=== PATIENT | male | born 1965 | race African-American/Black ===

== ENCOUNTER 2024-03-28 13:30 | Outpatient (AMB) | payer OTHER, SELFPAY ==
--- NOTE | 2024-03-28 13:23 | HO.NEPHOV ---
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 Frias is a 58-year-old gentleman with history hypertension, right basal ganglia CVA, obstructive sleep apnea, gout and end-stage renal disease secondary to IgA nephropathy with secondary FSGS who underwent a 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 He was not on dialysis. Induction was done using IV methylprednisone and Thymoglobulin. Donor was CMV positive, EBV positive with a KDPI 82%. Patient was CMV positive, EBV positive with 0% PRA. He had 2 hour session of hemodialysis for hyperkalemia postoperatively. He also received PRBC for acute anemia. He needed Hickman catheter insertion with CBI due to urine retention in the setting of clots. He had multiple admissions for GI bleed and anemia, gastric ulcers with no evidence of active bleeding. He had delayed graft function. He has been followed up by Urology. He underwent biopsy on 01/12/2024 which showed mild tubulitis T1 with minimal interstitial inflammation less than 10% , global sclerosis of 1/20 normal I the the mild to moderate diffuse interstitial fibrosis involving 20-30% of cortical area. His BK virus PCR has been negative. His DSA was negative. His Doppler showed no renal artery stenosis. He is here to establish care. He denies any chest pain, shortness of breath, proximal nocturnal dyspnea, orthopnea, pedal edema, urinary symptoms, fever. He is compliant with his medications. He maintains good hydration. His urine output is good. He avoids [id number] medications. [facility] Medical History (Updated 03/28/24 @ 13:28 by Boris Michael MD) ESRD (end stage renal disease) CVA (cerebral vascular accident) TONG (obstructive sleep apnea) Gout Hypertension Surgical History Kidney replaced by transplant Social History Alcohol intake: never Patient Tobacco Use Status: Never used Tobacco Use of substances other than those prescribed or required for medical reasons: No Review of Systems Const All systems reviewed & are unremarkable except as noted in HPI and below Physical Exam Vital Signs: Last Vital Signs Pulse 59 03/28/24 14:01 BP 130/60 03/28/24 14:01 Pulse Ox 100 03/28/24 14:01 Oxygen Delivery Method Room Air 03/28/24 14:01 BMI result Body Mass Index 28.8 Const General: comfortable and no acute distress Orientation/consciousness: patient oriented x3 HEENT Head: Yes normocephalic Mouth: Normal oral and palatal mucosa present Eyes EOM: EOMs intact bilaterally Neck Neck: Yes supple Resp Auscultation: clear to auscultation bilaterally Cardio Jugular venous distension: no JVD Rate: regular rate GI Palpation (GI): Soft to palpation Auscultation: normal bowel sounds General: Yes no CVA tenderness Back/Spine/Pelvis Back: no CVA tenderness Skin General skin exam: no rashes or lesions noted Neuro General: patient oriented x3 and moves all extremities Extrem General: Yes no pedal edema Results Reviewed Nephrology Results: No Data to Display Assessment & Plan Assessment & Plan (1) Renal transplant recipient: Code(s): Z94.0 - Kidney transplant status Category: Surgical (2) Hypertension: Code(s): I10 - Essential (primary) hypertension Category: Medical Qualifiers: Hypertension type: primary hypertension Qualified Code(s): I10 - Essential (primary) hypertension Plan Davion had a preemptive donor renal transplant 11 November 2023. He had delayed graft function. He needed 1 hemodialysis treatment postoperatively. His DSA was negative. His urinalysis was bland. His serum creatinine has been progressively improving. His urine protein creatinine ratio was normal. His Prospera was down to 0.13 on 04 of February. His transplant ultrasound in December showed mild hydronephrosis post stent removal. Allograft biopsy was done on 01/12/2024 which did not show any rejection. He has been on belatacept .( last dose February 2024). 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 His Myfortic dose was decreased to 360 mg twice daily for leukopenia. He had finished a Mycelex but is on Bactrim and Valcyte. His BK virus PCR has been negative. His EBV and CMV status for donor and recipient were positive. He received Procrit with improvement in hemoglobin. He is on Coreg which has been keeping his blood pressure at goal. His calcium, phosphorus and magnesium has been at goal. He is not on any oral sodium bicarbonate. He is going to get a bone marrow biopsy next week. I did not make any medication changes today. Follow-up lab work ordered. Time spent for retrieval of all his data from [facility], reviewing transplant course over last many months, encounter and documentation 62 minutes. Follow-up appointment given. Orders: Orders Creatinine Today I10 - Essential (primary) hypertension, Z94.0 - Kidney transplant status Electrolytes Today I10 - Essential (primary) hypertension, Z94.0 - Kidney transplant status Calcium Today I10 - Essential (primary) hypertension, Z94.0 - Kidney transplant status Phosphorus Today I10 - Essential (primary) hypertension, Z94.0 - Kidney transplant status Blood Urea Nitrogen Today I10 - Essential (primary) hypertension, Z94.0 - Kidney transplant status Complete Blood Count Auto Diff Today I10 - Essential (primary) hypertension, Z94.0 - Kidney transplant status Parathyroid Hormone Intact Today I10 - Essential (primary) hypertension, Z94.0 - Kidney transplant status Vitamin D 25-OH Total Today I10 - Essential (primary) hypertension, Z94.0 - Kidney transplant status Magnesium Today I10 - Essential (primary) hypertension, Z94.0 - Kidney transplant status Calcium 1 Month I10 - Essential (primary) hypertension, Z94.0 - Kidney transplant status Coding Level of Care Code New Pt Level 5 (24949) Diagnoses Renal transplant recipient Z94.0 Primary hypertension I10 Hypertension type: primary hypertension
[2024-03-28 14:01] VITALS: BP 130/60; PULSE 59; O2SAT 100; BMI 28.8
== END 2024-03-28 14:35 | disposition home or self-care (01) ==
PROVIDERS: PCP Internal Medicine; Visit Provider Internal Medicine Nephrology
DX: Z94.0 Kidney transplant status (principal); I10 Essential (primary) hypertension
CPT/HCPCS: 99205

== ENCOUNTER → 2024-03-28 13:30 | Outpatient (BNVA) | payer OTHER, SELFPAY | PROVIDERS: PCP Internal Medicine; Visit Provider Internal Medicine Nephrology | DX: I12.0 Hypertensive chronic kidney disease with stage 5 chronic kidney disease or end stage renal disease (principal); N18.6 End stage renal disease; Z94.0 Kidney transplant status | CPT/HCPCS: 99202 ==

== ENCOUNTER 2024-05-07 10:49 | Outpatient (REF) | payer OTHER, SELFPAY ==
[2024-05-07 17:45] LABS: MANUAL DIFF FLAG NO
[2024-05-07 18:13] LABS: Basophils Percent Auto 0.4 % (0-2); Eosinophils Absolute Auto 0.1 X10*3/uL (0.0-0.4); Eosinophils Percent Auto 5.4 % (0-4); Hematocrit 32.1 % (42.0-52.0); Hemoglobin 10.2 g/dl (14.0-18.0); Imm Gran Abs Auto 0.01 X10*3/uL (0.00-0.03); Imm Gran Pct Auto 0.4 % (0.0-0.4); Lymphocytes Absolute Auto 0.5 X10*3/uL (1.2-4.9); Lymphocytes Percent Auto 18.1 % (20-40); Mean Corpuscular HGB Conc 31.8 g/dl (31.0-36.0); Mean Corpuscular Hemoglobin 27.9 pg (27.0-33.0); Mean Corpuscular Volume 87.7 fL (80.0-98.0); Mean Platelet Volume 12.6 fL (9.4-12.4); Monocytes Absolute Auto 0.5 X10*3/uL (0.1-1.2); Monocytes Percent Auto 17.4 % (2-11); Neutrophils Absolute Auto 1.5 x10*3/uL (2.0-8.3); Neutrophils Percent Auto 58.3 % (45-73); Platelet Count 176 X10*3/uL (160-400); Red Blood Count 3.66 X10*6/uL (4.60-5.80); Red Cell Distribution Width 13.8 % (11.0-16.0); White Blood Count 2.6 X10*3/uL (4.8-10.8)
[2024-05-07 18:24] LABS: Parathyroid Hormone Intact 121.2 pg/mL (8.7-77.1)
[2024-05-07 18:28] LABS: Anion Gap 10 (12-20); Blood Urea Nitrogen 26 mg/dL (9-16); Calcium 9.7 mg/dL (8.4-10.2); Carbon Dioxide 33 mmol/L (22-29); Chloride 105 mmol/L (96-108); Estimated Glomerular Filt Rate 35; Magnesium 2.3 mg/dL (1.6-2.6); Phosphorus 2.7 mg/dL (2.7-4.5); Potassium 3.3 mmol/L (3.3-5.1); Sodium 145 mmol/L (135-145)
[2024-05-07 18:38] LABS: Vitamin D 25-OH Total 32.8 ng/mL (>30)
== END 2024-05-07 10:50 | disposition home or self-care (01) ==
LOC: HO.HKASLDS 10:49
PROVIDERS: Visit Provider Internal Medicine Nephrology
DX: I10 Essential (primary) hypertension (principal); Z94.0 Kidney transplant status
CPT/HCPCS: 36415; 80051; 82306; 82310; 82565; 83735; 83970; 84100; 84520; 85025

== ENCOUNTER 2024-05-14 10:34 | Outpatient (AMB) | payer OTHER, SELFPAY ==
--- NOTE | 2024-05-14 10:39 | HO.NEPHOV ---
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 He was not on dialysis. Induction was done using IV methylprednisone and Thymoglobulin. Donor was CMV positive, EBV positive with a KDPI 82%. Patient was CMV positive, EBV positive with 0% PRA. He had 2 hour session of hemodialysis for hyperkalemia postoperatively. He had multiple admissions for GI bleed and anemia, gastric ulcers with no evidence of active bleeding. He had delayed graft function. He has been followed up by Urology. He underwent biopsy on 01/12/2024 which showed mild tubulitis T1 with minimal interstitial inflammation less than 10% , global sclerosis of 1/20 normal I the the mild to moderate diffuse interstitial fibrosis involving 20-30% of cortical area. His BK virus PCR has been negative. His DSA was negative. His Doppler showed no renal artery stenosis. He denies any chest pain, shortness of breath, proximal nocturnal dyspnea, orthopnea, pedal edema, urinary symptoms, fever. He is compliant with his medications. He maintains good hydration. His urine output is good. He avoids [id number] medications [facility] Medical History (Updated 03/28/24 @ 13:28 by Boris Michael MD) ESRD (end stage renal disease) CVA (cerebral vascular accident) TONG (obstructive sleep apnea) Gout Hypertension Surgical History Kidney replaced by transplant Social History Alcohol intake: never Patient Tobacco Use Status: Never used Tobacco Review of Systems Const All systems reviewed & are unremarkable except as noted in HPI and below Physical Exam Vital Signs: Last Vital Signs Pulse 68 05/14/24 10:40 BP 130/70 05/14/24 10:40 Pulse Ox 98 05/14/24 10:40 Oxygen Delivery Method Room Air 05/14/24 10:40 BMI result Body Mass Index 30.5 Const General: comfortable and no acute distress Orientation/consciousness: patient oriented x3 HEENT Head: Yes normocephalic Mouth: Normal oral and palatal mucosa present Eyes EOM: EOMs intact bilaterally Neck Neck: Yes supple Resp Auscultation: clear to auscultation bilaterally Cardio Jugular venous distension: no JVD Rate: regular rate GI Palpation (GI): Soft to palpation Auscultation: normal bowel sounds General: Yes no CVA tenderness Back/Spine/Pelvis Back: no CVA tenderness Skin General skin exam: no rashes or lesions noted Neuro General: patient oriented x3 and moves all extremities Extrem General: Yes no pedal edema Results Reviewed Nephrology Results: Hgb 10.2 g/dl (14.0-18.0) L 05/07/24 WBC 2.6 X10*3/uL (4.8-10.8) L 05/07/24 Plt Count 176 X10*3/uL (160-400) 05/07/24 Sodium 145 mmol/L (135-145) 05/07/24 Potassium 3.3 mmol/L (3.3-5.1) 05/07/24 Chloride 105 mmol/L (96-108) 05/07/24 Carbon Dioxide 33 mmol/L (22-29) H 05/07/24 BUN 26 mg/dL (9-16) H 05/07/24 Creatinine 1.98 mg/dL (0.5-1.4) H 05/07/24 Calcium 9.7 mg/dL (8.4-10.2) 05/07/24 Phosphorus 2.7 mg/dL (2.7-4.5) 05/07/24 PTH Intact 121.2 pg/mL (8.7-77.1) H 05/07/24 Assessment & Plan Assessment & Plan (1) Renal transplant recipient: Code(s): Z94.0 - Kidney transplant status Category: Surgical (2) Hypertension: Code(s): I10 - Essential (primary) hypertension Category: Medical Qualifiers: Hypertension type: primary hypertension Qualified Code(s): I10 - Essential (primary) hypertension Plan Davion had a preemptive donor renal transplant 11 November 2023. He had delayed graft function. He needed 1 hemodialysis treatment postoperatively. His DSA was negative. His urinalysis was bland. His serum creatinine has been progressively improving. His urine protein creatinine ratio was normal. His Prospera was down to 0.13 on 04 of February. His transplant ultrasound in December showed mild hydronephrosis post stent removal. Allograft biopsy was done on 01/12/2024 which did not show any rejection. He has been on belatacept .( last dose Apr 20 2024; Due May 26). 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 His Myfortic dose was decreased to 360 mg twice daily for leukopenia. He had finished a Mycelex but is on Bactrim and Valcyte. His BK virus PCR has been negative. His EBV and CMV status for donor and recipient were positive. He is on Coreg which has been keeping his blood pressure at goal. His calcium, phosphorus and magnesium has been at goal. He is not on any oral sodium bicarbonate. He had a bone marrow biopsy & was WNL as per patient. I did not make any medication changes today. Follow-up lab work ordered. Follow-up appointment given Orders: Orders Creatinine Today I10 - Essential (primary) hypertension, Z94.0 - Kidney transplant status Electrolytes Today I10 - Essential (primary) hypertension, Z94.0 - Kidney transplant status Phosphorus Today I10 - Essential (primary) hypertension, Z94.0 - Kidney transplant status Magnesium Today I10 - Essential (primary) hypertension, Z94.0 - Kidney transplant status Complete Blood Count Auto Diff Today I10 - Essential (primary) hypertension, Z94.0 - Kidney transplant status Blood Urea Nitrogen Today I10 - Essential (primary) hypertension, Z94.0 - Kidney transplant status Calcium Today I10 - Essential (primary) hypertension, Z94.0 - Kidney transplant status Aspartate Amino Transferase Today I10 - Essential (primary) hypertension, Z94.0 - Kidney transplant status Alanine Aminotransferase Today I10 - Essential (primary) hypertension, Z94.0 - Kidney transplant status Coding Level of Care Code Est Pt Level 4 (63632) Diagnoses Renal transplant recipient Z94.0 Primary hypertension I10 Hypertension type: primary hypertension
[2024-05-14 10:40] VITALS: BP 130/70; PULSE 68; O2SAT 98; BMI 30.5
== END 2024-05-14 11:00 | disposition home or self-care (01) ==
PROVIDERS: PCP Internal Medicine; Visit Provider Internal Medicine Nephrology
DX: Z94.0 Kidney transplant status (principal); I10 Essential (primary) hypertension
CPT/HCPCS: 99214

== ENCOUNTER → 2024-05-14 10:34 | Outpatient (BNVA) | payer OTHER, SELFPAY | PROVIDERS: PCP Internal Medicine; Visit Provider Internal Medicine Nephrology | DX: I10 Essential (primary) hypertension (principal); Z94.0 Kidney transplant status | CPT/HCPCS: 99212 ==

== ENCOUNTER 2024-06-25 10:31 | Outpatient (REF) | payer OTHER, SELFPAY ==
[2024-06-25 13:17] LABS: MANUAL DIFF FLAG NO
[2024-06-25 13:38] LABS: Basophils Percent Auto 0.4 % (0-2); Eosinophils Absolute Auto 0.1 X10*3/uL (0.0-0.4); Eosinophils Percent Auto 3.4 % (0-4); Hematocrit 35.8 % (42.0-52.0); Hemoglobin 11.4 g/dl (14.0-18.0); Imm Gran Abs Auto 0.02 X10*3/uL (0.00-0.03); Imm Gran Pct Auto 0.9 % (0.0-0.4); Lymphocytes Absolute Auto 0.6 X10*3/uL (1.2-4.9); Lymphocytes Percent Auto 24.6 % (20-40); Mean Corpuscular HGB Conc 31.8 g/dl (31.0-36.0); Mean Corpuscular Hemoglobin 27.8 pg (27.0-33.0); Mean Corpuscular Volume 87.3 fL (80.0-98.0); Mean Platelet Volume 12.3 fL (9.4-12.4); Monocytes Absolute Auto 0.4 X10*3/uL (0.1-1.2); Monocytes Percent Auto 15.9 % (2-11); Neutrophils Absolute Auto 1.3 x10*3/uL (2.0-8.3); Neutrophils Percent Auto 54.8 % (45-73); Platelet Count 174 X10*3/uL (160-400); Red Cell Distribution Width 13.7 % (11.0-16.0); SCAN SMEAR FLAG 1
[2024-06-25 13:40] LABS: White Blood Count 2.3 X10*3/uL (4.8-10.8)
[2024-06-25 19:34] LABS: Alanine Aminotransferase 15 U/L (0-40); Anion Gap 12 (12-20); Aspartate Amino Transferase 19 U/L (5-37); Blood Urea Nitrogen 22 mg/dL (9-16); Calcium 9.8 mg/dL (8.4-10.2); Carbon Dioxide 31 mmol/L (22-29); Chloride 104 mmol/L (96-108); Estimated Glomerular Filt Rate 33; Magnesium 2.2 mg/dL (1.6-2.6); Phosphorus 2.9 mg/dL (2.7-4.5); Potassium 3.6 mmol/L (3.3-5.1); Sodium 143 mmol/L (135-145)
== END 2024-06-25 10:32 | disposition home or self-care (01) ==
LOC: HO.HKASLDS 10:31
PROVIDERS: Visit Provider Internal Medicine Nephrology
DX: I10 Essential (primary) hypertension (principal); Z94.0 Kidney transplant status
CPT/HCPCS: 36415; 80051; 82310; 82565; 83735; 84100; 84450; 84460; 84520; 85025

== ENCOUNTER 2024-07-02 11:09 | Outpatient (AMB) | payer OTHER, SELFPAY ==
[2024-07-02 11:48] VITALS: BP 148/70; BMI 31.2
--- NOTE | 2024-07-02 11:48 | HO.NEPHOV ---
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 He was not on dialysis. Induction was done using IV methylprednisone and Thymoglobulin. Donor was CMV positive, EBV positive with a KDPI 82%. Patient was CMV positive, EBV positive with 0% PRA. He had 2 hour session of hemodialysis for hyperkalemia postoperatively. He had multiple admissions for GI bleed and anemia, gastric ulcers with no evidence of active bleeding. He had delayed graft function. He has been followed up by Urology. He underwent biopsy on 01/12/2024 which showed mild tubulitis T1 with minimal interstitial inflammation less than 10% , global sclerosis of 1/20 normal I the the mild to moderate diffuse interstitial fibrosis involving 20-30% of cortical area. His BK virus PCR has been negative. His DSA was negative. His Doppler showed no renal artery stenosis. He denies any chest pain, shortness of breath, proximal nocturnal dyspnea, orthopnea, pedal edema, urinary symptoms, fever. He is compliant with his medications. He maintains good hydration. His urine output is good. He avoids [id number] medications [facility] Medical History (Updated 03/28/24 @ 13:28 by Boris Michael MD) ESRD (end stage renal disease) CVA (cerebral vascular accident) TONG (obstructive sleep apnea) Gout Hypertension Surgical History Kidney replaced by transplant Social History Alcohol intake: never Patient Tobacco Use Status: Never used Tobacco Review of Systems Const All systems reviewed & are unremarkable except as noted in HPI and below Physical Exam Vital Signs: Last Vital Signs BP 148/70 H 07/02/24 11:48 BMI result Body Mass Index 31.2 Const General: comfortable and no acute distress Orientation/consciousness: patient oriented x3 HEENT Head: Yes normocephalic Mouth: Normal oral and palatal mucosa present Eyes EOM: EOMs intact bilaterally Neck Neck: Yes supple Resp Auscultation: clear to auscultation bilaterally Cardio Jugular venous distension: no JVD Rate: regular rate GI Palpation (GI): Soft to palpation Auscultation: normal bowel sounds General: Yes no CVA tenderness Back/Spine/Pelvis Back: no CVA tenderness Skin General skin exam: no rashes or lesions noted Neuro General: patient oriented x3 and moves all extremities Extrem General: Yes no pedal edema Results Reviewed Nephrology Results: Hgb 11.4 g/dl (14.0-18.0) L 06/25/24 WBC 2.3 X10*3/uL (4.8-10.8) L 06/25/24 Plt Count 174 X10*3/uL (160-400) 06/25/24 Sodium 143 mmol/L (135-145) 06/25/24 Potassium 3.6 mmol/L (3.3-5.1) 06/25/24 Chloride 104 mmol/L (96-108) 06/25/24 Carbon Dioxide 31 mmol/L (22-29) H 06/25/24 BUN 22 mg/dL (9-16) H 06/25/24 Creatinine 2.05 mg/dL (0.5-1.4) H 06/25/24 Calcium 9.8 mg/dL (8.4-10.2) 06/25/24 Phosphorus 2.9 mg/dL (2.7-4.5) 06/25/24 PTH Intact 121.2 pg/mL (8.7-77.1) H 05/07/24 Assessment & Plan Assessment & Plan (1) Renal transplant recipient: Code(s): Z94.0 - Kidney transplant status Category: Surgical (2) Hypertension: Code(s): I10 - Essential (primary) hypertension Category: Medical Qualifiers: Hypertension type: primary hypertension Qualified Code(s): I10 - Essential (primary) hypertension Plan Davion had a preemptive donor renal transplant 11 November 2023. He has H/O delayed graft function. He needed 1 hemodialysis treatment postoperatively. His DSA was negative. His urinalysis was bland. His serum creatinine has been stable. His urine protein creatinine ratio was normal. His Prospera was down to 0.13 on 04 of February. His transplant ultrasound in December showed mild hydronephrosis post stent removal. Allograft biopsy was done on 01/12/2024 which did not show any rejection. He has been on belatacept .( last dose Apr 20 2024; Due May 26). 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 ( last dose of Belatecept was 06/23/2024) His Myfortic dose was decreased to 360 mg twice daily for leukopenia. He had finished a Mycelex but is on Bactrim and Valcyte. His BK virus PCR has been negative. His EBV and CMV status for donor and recipient were positive. He is on Coreg which has been keeping his blood pressure at goal. His calcium, phosphorus and magnesium has been at goal. He is not on any oral sodium bicarbonate. He had a bone marrow biopsy & was WNL as per patient. I did not make any medication changes today. Follow-up lab work ordered. Follow-up appointment given Orders: Orders Creatinine 6 Weeks I10 - Essential (primary) hypertension, Z94.0 - Kidney transplant status Blood Urea Nitrogen 6 Weeks I10 - Essential (primary) hypertension, Z94.0 - Kidney transplant status Magnesium 6 Weeks I10 - Essential (primary) hypertension, Z94.0 - Kidney transplant status Complete Blood Count Auto Diff 6 Weeks I10 - Essential (primary) hypertension, Z94.0 - Kidney transplant status Other Ref Test - Misc 6 Weeks I10 - Essential (primary) hypertension, Z94.0 - Kidney transplant status Electrolytes 6 Weeks I10 - Essential (primary) hypertension, Z94.0 - Kidney transplant status Calcium 6 Weeks I10 - Essential (primary) hypertension, Z94.0 - Kidney transplant status Phosphorus 6 Weeks I10 - Essential (primary) hypertension, Z94.0 - Kidney transplant status Alanine Aminotransferase 6 Weeks I10 - Essential (primary) hypertension, Z94.0 - Kidney transplant status Aspartate Amino Transferase 6 Weeks I10 - Essential (primary) hypertension, Z94.0 - Kidney transplant status Other Ref Test - Misc 5 Weeks I10 - Essential (primary) hypertension, Z94.0 - Kidney transplant status Coding Level of Care Code Est Pt Level 4 (65642) Diagnoses Renal transplant recipient Z94.0 Primary hypertension I10 Hypertension type: primary hypertension
== END 2024-07-02 12:15 | disposition home or self-care (01) ==
LOC: HO.HKAS 11:10
PROVIDERS: PCP Internal Medicine; Visit Provider Internal Medicine Nephrology
DX: Z94.0 Kidney transplant status (principal); I10 Essential (primary) hypertension
CPT/HCPCS: 99214

== ENCOUNTER → 2024-07-02 11:09 | Outpatient (BNVA) | payer OTHER, SELFPAY | PROVIDERS: PCP Internal Medicine; Visit Provider Internal Medicine Nephrology | DX: I10 Essential (primary) hypertension (principal); Z94.0 Kidney transplant status | CPT/HCPCS: 99212 ==

== ENCOUNTER 2024-08-13 10:36 | Outpatient (AMB) | payer OTHER, SELFPAY ==
--- NOTE | 2024-08-13 11:23 | HO.NEPHOV ---
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 He was not on dialysis. Induction was done using IV methylprednisone and Thymoglobulin. Donor was CMV positive, EBV positive with a KDPI 82%. Patient was CMV positive, EBV positive with 0% PRA. He had 2 hour session of hemodialysis for hyperkalemia postoperatively. He had multiple admissions for GI bleed and anemia, gastric ulcers with no evidence of active bleeding. He had delayed graft function. He has been followed up by Urology. He underwent biopsy on 01/12/2024 which showed mild tubulitis T1 with minimal interstitial inflammation less than 10% , global sclerosis of 1/20 normal I the the mild to moderate diffuse interstitial fibrosis involving 20-30% of cortical area. His BK virus PCR has been negative. His DSA was negative. His Doppler showed no renal artery stenosis. He denies any chest pain, shortness of breath, proximal nocturnal dyspnea, orthopnea, pedal edema, urinary symptoms, fever. He is compliant with his medications. He maintains good hydration. His urine output is good. He avoids [id number] medications [facility] Medical History (Updated 08/13/24 @ 12:33 by Boris Michael MD) ESRD (end stage renal disease) CVA (cerebral vascular accident) TONG (obstructive sleep apnea) Gout Hypertension Surgical History Kidney replaced by transplant Social History Alcohol intake: never Patient Tobacco Use Status: Never used Tobacco Review of Systems Const All systems reviewed & are unremarkable except as noted in HPI and below Physical Exam Vital Signs: Last Vital Signs Pulse 59 08/13/24 11:24 BP 130/80 08/13/24 11:24 Pulse Ox 95 08/13/24 11:24 Oxygen Delivery Method Room Air 08/13/24 11:24 BMI result Body Mass Index 32.1 Const General: comfortable and no acute distress Orientation/consciousness: patient oriented x3 HEENT Head: Yes normocephalic Mouth: Normal oral and palatal mucosa present Eyes EOM: EOMs intact bilaterally Neck Neck: Yes supple Resp Auscultation: clear to auscultation bilaterally Cardio Jugular venous distension: no JVD Rate: regular rate GI Palpation (GI): Soft to palpation Auscultation: normal bowel sounds General: Yes no CVA tenderness Back/Spine/Pelvis Back: no CVA tenderness Skin General skin exam: no rashes or lesions noted Neuro General: patient oriented x3 and moves all extremities Extrem General: Yes no pedal edema Assessment & Plan Assessment & Plan (1) Hypertension: Code(s): I10 - Essential (primary) hypertension Category: Medical Qualifiers: Hypertension type: primary hypertension Qualified Code(s): I10 - Essential (primary) hypertension (2) Renal transplant recipient: Code(s): Z94.0 - Kidney transplant status Category: Surgical (3) Hypokalemia: Code(s): E87.6 - Hypokalemia Category: Medical (4) Leucopenia: Code(s): D72.819 - Decreased white blood cell count, unspecified Category: Medical Qualifiers: Leukopenia type: other Qualified Code(s): D72.818 - Other decreased white blood cell count Plan Davion had a preemptive donor renal transplant 11 November 2023. He has H/O delayed graft function. He needed 1 hemodialysis treatment postoperatively. His DSA was negative. His urinalysis was bland. His serum creatinine has been stable. His urine protein creatinine ratio was normal. His Prospera was down to 0.13 on 04 of February. His transplant ultrasound in December showed mild hydronephrosis post stent removal. Allograft biopsy was done on 01/12/2024 which did not show any rejection. He has been on belatacept .( last dose Apr 20 2024; Due May 26). 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 ( last dose of Belatecept was 06/23/2024) His Myfortic dose was decreased to 360 mg twice daily for leukopenia. He had finished a Mycelex but is on Bactrim and Valcyte. His BK virus PCR has been negative. His EBV and CMV status for donor and recipient were positive. He is on Coreg which has been keeping his blood pressure at goal. His calcium, phosphorus and magnesium has been at goal. He is not on any oral sodium bicarbonate. He had a bone marrow biopsy & was WNL as per patient. I reduced her myfortic to 180 mg bid which I plan to put back to 360 mg bid once her leucopenia resolves. I also replaced him with K for 10 days. I did not make any other medication changes today. Follow-up lab work ordered. Follow-up appointment given Orders: Orders Blood Urea Nitrogen 3 Weeks I10 - Essential (primary) hypertension, Z94.0 - Kidney transplant status Electrolytes 3 Weeks I10 - Essential (primary) hypertension, Z94.0 - Kidney transplant status Calcium 3 Weeks I10 - Essential (primary) hypertension, Z94.0 - Kidney transplant status Phosphorus 3 Weeks I10 - Essential (primary) hypertension, Z94.0 - Kidney transplant status Magnesium 3 Weeks I10 - Essential (primary) hypertension, Z94.0 - Kidney transplant status Complete Blood Count Auto Diff 3 Weeks I10 - Essential (primary) hypertension, Z94.0 - Kidney transplant status Creatinine 3 Weeks I10 - Essential (primary) hypertension, Z94.0 - Kidney transplant status Medications: New potassium chloride ER 10 mEq PO DAILY 10 tabs 0RF Coding Level of Care Code Est Pt Level 4 (62149) Diagnoses Primary hypertension I10 Hypertension type: primary hypertension Renal transplant recipient Z94.0 Hypokalemia E87.6 Other decreased white blood cell (WBC) count D72.818 Leukopenia type: other
[2024-08-13 11:24] VITALS: BP 130/80; PULSE 59; O2SAT 95; BMI 32.1
== END 2024-08-13 11:39 | disposition home or self-care (01) ==
PROVIDERS: PCP Internal Medicine; Visit Provider Internal Medicine Nephrology
DX: I10 Essential (primary) hypertension (principal); Z94.0 Kidney transplant status; E87.6 Hypokalemia; D72.818 Other decreased white blood cell count
CPT/HCPCS: 99214

== ENCOUNTER → 2024-08-13 10:36 | Outpatient (BNVA) | payer OTHER, SELFPAY | PROVIDERS: PCP Internal Medicine; Visit Provider Internal Medicine Nephrology | DX: D72.818 Other decreased white blood cell count (principal); I10 Essential (primary) hypertension; E87.6 Hypokalemia; Z94.0 Kidney transplant status | CPT/HCPCS: 99212 ==

== ENCOUNTER 2024-09-10 09:41 | Outpatient (REF) | payer OTHER, SELFPAY ==
[2024-09-10 18:06] LABS: MANUAL DIFF FLAG NO
[2024-09-10 18:10] LABS: Basophils Percent Auto 0.4 % (0-2); Eosinophils Absolute Auto 0.1 X10*3/uL (0.0-0.4); Eosinophils Percent Auto 2.7 % (0-4); Hematocrit 38.2 % (42.0-52.0); Hemoglobin 12.2 g/dl (14.0-18.0); Imm Gran Abs Auto 0.02 X10*3/uL (0.00-0.03); Imm Gran Pct Auto 0.8 % (0.0-0.4); Lymphocytes Absolute Auto 0.7 X10*3/uL (1.2-4.9); Lymphocytes Percent Auto 25.1 % (20-40); Mean Corpuscular HGB Conc 31.9 g/dl (31.0-36.0); Mean Corpuscular Hemoglobin 27.5 pg (27.0-33.0); Mean Platelet Volume 12.6 fL (9.4-12.4); Monocytes Absolute Auto 0.4 X10*3/uL (0.1-1.2); Monocytes Percent Auto 15.8 % (2-11); Neutrophils Absolute Auto 1.4 x10*3/uL (2.0-8.3); Neutrophils Percent Auto 55.2 % (45-73); Platelet Count 119 X10*3/uL (160-400); Red Blood Count 4.44 X10*6/uL (4.60-5.80); Red Cell Distribution Width 14.6 % (11.0-16.0); White Blood Count 2.6 X10*3/uL (4.8-10.8)
[2024-09-10 18:30] LABS: Anion Gap 11 (12-20); Aspartate Amino Transferase 20 U/L (5-37); Blood Urea Nitrogen 30 mg/dL (9-16); Calcium 9.3 mg/dL (8.4-10.2); Carbon Dioxide 32 mmol/L (22-29); Chloride 103 mmol/L (96-108); Estimated Glomerular Filt Rate 36; Magnesium 2.2 mg/dL (1.6-2.6); Phosphorus 2.9 mg/dL (2.7-4.5); Potassium 3.3 mmol/L (3.3-5.1); Sodium 143 mmol/L (135-145)
== END 2024-09-10 09:42 | disposition home or self-care (01) ==
LOC: HO.HKASLDS 09:41
PROVIDERS: PCP Internal Medicine; Visit Provider Internal Medicine Nephrology
DX: Z94.0 Kidney transplant status (principal); I10 Essential (primary) hypertension; D72.818 Other decreased white blood cell count
CPT/HCPCS: 36415; 80051; 82310; 82565; 83735; 84100; 84450; 84520; 85025; 99212

== ENCOUNTER 2024-09-10 09:41 | Outpatient (AMB) | payer OTHER, SELFPAY ==
--- OUTSIDE RECORDS SUMMARY | 2024-09-10 10:02 | XMS_ITS ---
Author Name [facility] Organization Unknown Problems Problem Status Onset Date Problem Type Date of Resoluti on Source Complication of transplanted kidney, unspecified complication active [facility]
--- NOTE | 2024-09-10 10:08 | HO.NEPHOV_ITS ---
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 He was not on dialysis. Induction was done using IV methylprednisone and Thymoglobulin. Donor was CMV positive, EBV positive with a KDPI 82%. Patient was CMV positive, EBV positive with 0% PRA. He had 2 hour session of hemodialysis for hyperkalemia postoperatively. He had multiple admissions for GI bleed and anemia, gastric ulcers with no evidence of active bleeding. He had delayed graft function. He has been followed up by Urology. He underwent biopsy on 01/12/2024 which showed mild tubulitis T1 with minimal interstitial inflammation less than 10% , global sclerosis of 1/20 normal I the the mild to moderate diffuse interstitial fibrosis involving 20-30% of cortical area. His BK virus PCR has been negative. His DSA was negative. His Doppler showed no renal artery stenosis. He denies any chest pain, shortness of breath, proximal nocturnal dyspnea, orthopnea, pedal edema, urinary symptoms, fever. He is compliant with his medications. He maintains good hydration. His urine output is good. He avoids [id number] medications [facility] Medical History (Updated 08/13/24 @ 12:33 by Boris Michael MD) ESRD (end stage renal disease) CVA (cerebral vascular accident) TONG (obstructive sleep apnea) Gout Hypertension Surgical History Kidney replaced by transplant Social History Alcohol intake: never Patient Tobacco Use Status: Never used Tobacco Review of Systems Const All systems reviewed & are unremarkable except as noted in HPI and below Physical Exam Vital Signs: Last Vital Signs Pulse 50 09/10/24 10:09 BP 140/80 H 09/10/24 10:09 Pulse Ox 93 09/10/24 10:09 Oxygen Delivery Method Room Air 09/10/24 10:09 BMI result Body Mass Index 32.7 Const General: comfortable and no acute distress Orientation/consciousness: patient oriented x3 HEENT Head: Yes normocephalic Mouth: Normal oral and palatal mucosa present Eyes EOM: EOMs intact bilaterally Neck Neck: Yes supple Resp Auscultation: clear to auscultation bilaterally Cardio Jugular venous distension: no JVD Rate: regular rate GI Palpation (GI): Soft to palpation Auscultation: normal bowel sounds General: Yes no CVA tenderness Back/Spine/Pelvis Back: no CVA tenderness Skin General skin exam: no rashes or lesions noted Neuro General: patient oriented x3 and moves all extremities Extrem General: Yes no pedal edema Results Reviewed Nephrology Results: Hgb 11.4 g/dl (14.0-18.0) L 06/25/24 WBC 2.3 X10*3/uL (4.8-10.8) L 06/25/24 Plt Count 174 X10*3/uL (160-400) 06/25/24 Sodium 143 mmol/L (135-145) 06/25/24 Potassium 3.6 mmol/L (3.3-5.1) 06/25/24 Chloride 104 mmol/L (96-108) 06/25/24 Carbon Dioxide 31 mmol/L (22-29) H 06/25/24 BUN 22 mg/dL (9-16) H 06/25/24 Creatinine 2.05 mg/dL (0.5-1.4) H 06/25/24 Calcium 9.8 mg/dL (8.4-10.2) 06/25/24 Phosphorus 2.9 mg/dL (2.7-4.5) 06/25/24 PTH Intact 121.2 pg/mL (8.7-77.1) H 05/07/24 Assessment & Plan Assessment & Plan (1) Leucopenia: Code(s): D72.819 - Decreased white blood cell count, unspecified Category: Medical Qualifiers: Leukopenia type: other Qualified Code(s): D72.818 - Other decreased white blood cell count (2) Hypertension: Code(s): I10 - Essential (primary) hypertension Category: Medical Qualifiers: Hypertension type: primary hypertension Qualified Code(s): I10 - Essential (primary) hypertension (3) Renal transplant recipient: Code(s): Z94.0 - Kidney transplant status Category: Surgical Plan Davion had a preemptive donor renal transplant 11 November 2023. He has H/O delayed graft function. He needed 1 hemodialysis treatment postoperatively. His DSA was negative. His urinalysis was bland. His serum creatinine has been stable. His urine protein creatinine ratio was normal. His Prospera was down to 0.13 on 04 of February. His transplant ultrasound in December showed mild hydronephrosis post stent removal. Allograft biopsy was done on 01/12/2024 which did not show any rejection. He has been on belatacept .( upcoming dose Sep 15 2024; Due May 26). 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 ( last dose of Belatecept was 06/23/2024) His Myfortic dose was decreased to 360 mg twice daily for leukopenia. He had finished a Mycelex but is on Bactrim and Valcyte. His BK virus PCR has been negative. His EBV and CMV status for donor and recipient were positive. He is on Coreg which has been keeping his blood pressure at goal. His calcium, phosphorus and magnesium has been at goal. He is not on any oral sodium bicarbonate. He had a bone marrow biopsy & was WNL as per patient. I reduced her myfortic to 180 mg bid which I plan to put back to 360 mg bid once her leucopenia resolves. I did not make any other medication changes today. Follow-up lab work ordered. Follow-up appointment given Orders: Orders Creatinine 2 Months D72.818 - Other decreased white blood cell count, I10 - Essential (primary) hypertension, Z94.0 - Kidney transplant status Calcium 2 Months D72.818 - Other decreased white blood cell count, I10 - Essential (primary) hypertension, Z94.0 - Kidney transplant status Magnesium 2 Months D72.818 - Other decreased white blood cell count, I10 - Essential (primary) hypertension, Z94.0 - Kidney transplant status Phosphorus 2 Months D72.818 - Other decreased white blood cell count, I10 - Essential (primary) hypertension, Z94.0 - Kidney transplant status Complete Blood Count Auto Diff 2 Months D72.818 - Other decreased white blood cell count, I10 - Essential (primary) hypertension, Z94.0 - Kidney transplant status Blood Urea Nitrogen 2 Months D72.818 - Other decreased white blood cell count, I10 - Essential (primary) hypertension, Z94.0 - Kidney transplant status Electrolytes 2 Months D72.818 - Other decreased white blood cell count, I10 - Essential (primary) hypertension, Z94.0 - Kidney transplant status Coding Level of Care Code Est Pt Level 4 (58309) Diagnoses Other decreased white blood cell (WBC) count D72.818 Leukopenia type: other Primary hypertension I10 Hypertension type: primary hypertension Renal transplant recipient Z94.0
[2024-09-10 10:09] VITALS: BP 140/80; PULSE 50; O2SAT 93; BMI 32.7
== END 2024-09-10 10:30 | disposition home or self-care (01) ==
PROVIDERS: PCP Internal Medicine; Visit Provider Internal Medicine Nephrology
DX: D72.818 Other decreased white blood cell count (principal); I10 Essential (primary) hypertension; Z94.0 Kidney transplant status
CPT/HCPCS: 99214

== ENCOUNTER 2024-11-12 10:00 | Outpatient (REF) | payer OTHER, SELFPAY ==
--- OUTSIDE RECORDS SUMMARY | 2024-11-12 11:40 | XMS_ITS | Clinical Summary ---
Author Organization [address] [facility] Address [address] [place] [address] Phone Care Team Providers Care Printing Equipment Mechanic Apprentice Name Role Phone Ok Barakat MD Primary Care Provider [phone] Allergies Active Allergy Reactions Criticality Noted Date Comments Fosinopril 03/01/2017 Nifedipine 03/01/2017 Medications UNABLE TO FIND CPAP Historical (HISTORICAL CPAP) Sig - Route: Inhale ??into the lungs. - Inhalation Active rOPINIRole (REQUIP) 0.5 mg tablet Take 1 tablet (0.5 mg total) by mouth at bedtime. Active tamsulosin (FLOMAX) 0.4 mg 24 hr capsule Take 2 capsules (0.8 mg total) by mouth 1 (one) time each day. Active allopurinoL (ZYLOPRIM) 100 mg tablet Take 1 tablet (100 mg total) by mouth 1 (one) time each day. Active sulfamethoxaz ole-trimethop rim (BACTRIM,SEPT RA) 400-80 mg per tablet Take 1 tablet by mouth 2 (two) times a day. Active tacrolimus (Astagraf XL) 1 mg capsule,exten ded release 24hr Take by mouth. Activ e mycophenolate (MYFORTIC) 180 mg EC tablet Take by mouth 2 times daily. Active epoetin emma (Procrit) 40,000 unit/mL injection INJECT 40,000 UNITS (1ML) SUBCUTANEOUSLY EVERY 7 DAYS 01/30/20 24 Active atorvastatin (LIPITOR) 10 mg tablet Take 1 tablet (10 mg total) by mouth 1 (one) time each day. Active oxyBUTYnin XL (DITROPAN-XL) 10 mg 24 hr tablet Take by mouth. - Route: Take 1 Tablet by mouth. - OralDo not crush, chew, or split. Active loratadine (CLARITIN) 10 mg tablet Take 1 tablet (10 mg total) by mouth 1 (one) time each day. Active gabapentin (NEURONTIN) 100 mg capsule Take 1 capsule (100 mg total) by mouth 1 (one) time each day. 90 capsule 1 07/25/20 24 Active torsemide (DEMADEX) 20 mg tablet Take 1 tablet (20 mg total) by mouth. 03/20/20 24 Active carvediloL (Coreg) 25 mg tablet Take 1 tablet (25 mg total) by mouth 2 (two) times a day with meals. 90 tablet 1 10/30/19 25 Active pantoprazole (PROTONIX) 40 mg EC tablet Take 1 tablet (40 mg total) by mouth 2 (two) times a day. 90 tablet 1 10/30/19 25 Active aspirin 81 mg EC tablet Take 1 tablet (81 mg total) by mouth 1 (one) time each day. 90 tablet 1 10/30/19 25 Active carvediloL (COREG) 6.25 mg tablet Take 1 Tablet by mouth 2 times daily (with meals). 2024 Discontinued pantoprazole (PROTONIX) 40 mg EC tablet Take 1 tablet (40 mg total) by mouth 1 (one) time each day. 90 tablet 1 07/17/20 24 2024 Discontinued Active Problems Problem Noted Date Diagnosed Date HLD (hyperlipidemia) 06/10/2024 Assessment & Plan (10/30/2024 3:35 PM EST): Under control now. Continue atorvastatin. Duodenal ulcer 06/10/2024 Kidney transplant recipient 12/29/2023 Overview (06/10/2024): 11/11/2023 Assessment & Plan (10/30/2024 3:35 PM EST): He is being monitored by nephrology closely. He is up-to-date with his lab work with nephrology. Mild obstructive sleep apnea 10/08/2017 Overview (06/10/2024): Followed at [place] [facility] at [facility], followed by Dr Musa Allen Gout 08/28/2017 Assessment & Plan (10/30/2024 3:35 PM EST): Continue allopurinol 100 mg daily. CKD (chronic kidney disease), stage II 7 CVA (cerebral vascular accident) 03/01/2017 Overview (06/10/2024): Neurology (06/16/17): Continue aspirin, 48 hour Holter results discussed which showed no A. fib/flutter. Advised to follow up with sleep medicine for evaluation of TONG. [facility] 01/2017 HTN (hypertension) 03/01/2017 Overview (06/10/2024): Real (02/16/18): Creatinine is up to 2.5 and worsening. We'll repeat labs in 2 weeks. We'll discuss with him proceeding to renal biopsy to rule out superimposed acute process. Hypertension is well controlled. Reduce lisinopril to 40 mg daily rather than twice a day. Continue diltiazem and chlorthalidone. Increase diltiazem to 300 mg. When necessary 3 days per week furosemide 40 mg. Renal (12/29/17): Hypertension suboptimally controled. Lisinopril incrased to 40 mg bid, add diltizaem 240 g and stop labetalol, resume chlorthalidone 25 mg daily. F/u1 month Renal (11/10/17): Increase lisinopril to 40 mg twice a day, furosemide 40 mg daily, Zoloft chlorthalidone and spironolactone, consider echo to evaluate for right heart dysfunction given obstructive sleep apnea. Seen by Dr. Radha Elizondo. Renal(10/16/17): d/c aldactone , increase lisinopril to 40 mg bid, cont colchicine prn and allopurinol for GOUT. RTC in 1 month Nephro (08/11/17): HTN reasonable controlled. CKD2, Acei max dose reduced to 40. Cont mag supplementation. Started allopurinal for gout, colchicine PRN. Hold statin short term to check cpk. Chlorthlidone added MWF. Nephro (05/12/17): Primary aldosteronism negative. Recently developed hypokalemia while on spironolactone and was stopped. Elevated CPK of about 800 systolic and stent. Creatinine was 2.1 on 03/31. Bilateral foot pain complaining of gout. Hypertension reasonably controlled. Avoid NSAIDs. Daily supplementation of magnesium. Prescription of colchicine when necessary and allopurinol maintenance provided. Hold atorvastatin for short-term. Hold diuretics now for increase uric acid levels Nephro (04/14/17): Seen for resistant hypertension, was started on spironolactone but patient got hyperkalemia and hyperuricemia. Spironolactone stopped. Will start diuretic but after gout resolves and resume chlorthalidone. His creatinine is 1.8, first CK D stage II, continue DEN inhibitor max dose. Patient has hypomagnesemia for which she will have daily supplementation. For gout, colchicine provided, stop spironolactone. Hold atorvastatin because of increase in CPK. Follow-up in one month Assessment & Plan (10/30/2024 3:35 PM EST): Blood pressure is okay. He will follow low-sodium diet. Continue regimen of carvedilol and torsemide. Encounters Date Type Department Care Team Description 10/30/2024 2:45 PM EST Office Visit Internal Medicine - [address] [phone] Ok Barakat MD Kidney transplant recipient (Primary Dx); Hypertension, unspecified type; Hyperlipidemia, unspecified hyperlipidemia type; Gout, unspecified cause, unspecified chronicity, unspecified site from Last 3 Months Immunizations Name Administration Dates Next Due Influenza, Unspecified 05/22/2024 [employer] SARS-CoV-2 COVID-19, mRNA, LNP-S, preservative free 06/13/2022,08/23/2021,01/17/2021,2020 Tdap Tetanus diptheria acell ular pertussis (Boostrix; Adacel) 7yo and older 05/02/2018 Surgical History Surgery Date Site/Laterality Comments OTHER SURGICAL HISTORY PROCEDURE: DENIES PREVIOUS SURGERY COLONOSCOPY 07/01/2019 PROCEDURE: HISTORICAL COLONOSCOPY; COMMENT: diverticulosis of sigmoid colon, no specimens collected, repeat 10 years Medical History Medical History Date Comments Gout 08/28/2017 DX:Gout HTN (hypertension) 03/01/2017 DX:HTN (hyper tension); COMMENT: Real (02/16/18): Creatinine is up to 2.5 and worsening. We'll repeat labs in 2 weeks. We'll discuss with him proceeding to renal biopsy to rule out superimposed acute process. Hypertension is well controlled. Reduce lisinopril to 40 mg daily rather than twice a day. Continue diltiazem and chlorthalidone. Increase diltiazem to 300 mg. When necessary 3 days per week fu* CVA (cerebral vascular accid ent) ([facility]) 03/01/2017 DX:CVA (cerebral vascular ac cident) ([facility]); COMMENT: Neurology (06/16/17): Continue aspirin, 48 hour Holter results discussed which showed no A. fib/flutter. Advised to follow up with sleep medicine for evaluation of TONG. [facility] 01/2017 CKD (chronic kidney disease) , stage II 04/14/2017 DX:CKD (chronic kidney disea se), stage II Mild obstructive sleep apnea 10/08/2017 DX: Mild obstructive sleep apnea; COMMENT: Followed at [place] [facility] at [facility], followed by Dr Musa Allen Duodenal ulcer 06/05/2024 DX:Duodenal ulce r HLD (hyperlipidemia) 06/09/2024 DX:HLD (hyp erlipidemia) Social History Tobacco Use Types Packs/Day Years Used Date Smoking Tobacco: Never Smokeless Tobacco: Never Tobacco Cessation:Counseling Given: Not Answered Alcohol Use Standard Drinks/Week Comments No 0 (1 standard drink = 0.6 oz pur e alcohol) Housing Instability Answer Date Recorde d Are you worried that in the next 2 months you may not have stable housing? Unable to respond 10/29/2024 Food Access & Nutrition Answer Date Rec orded Do you have access to a vari ety of food including fruits and vegetables? Yes 10/29/2024 Financial Risk Answer Date Recorded How hard is it for you to pa y for the very basics like food, housing, medical care, and air conditioning / heating? Unable to respond 10/29/2024 Transportation Answer Date Recorded Has the lack of transportati on kept you from meetings, work, or from getting things needed for daily living? No Has the lack of transportati on kept you from medical appointments or from getting medications? No 10/29/2024 Food Risk Answer Date Recorded Within the past 12 months we worried whether our food would run out before we got money to buy more. Unable to respond 025 Within the past 12 months th e food we bought just didn't last and we didn't have money to get more. Unable to respond 10/06 Living Situation Answer Date Recorded What is your living situation? 0 10/29/2024 Sex and Gender Information Value Date Recorded Sex Assigned at Not on file Legal Sex Male 10:43 PM EST Gender Identity Not on file Sexual Orientation Not on file Obstetrics History Last Filed Vital Signs Vital Sign Reading Time Taken Comments Blood Pressure 136/68 10/30/2024 3:25 PM EST Pulse 50 10/30/2024 2:49 PM EST Temperature - - Respiratory Rate - - Oxygen Saturation 98% 07/16/2024 8:43 AM EST Inhaled Oxygen Concentration - - Weight 102 kg (224 lb) 10/30/2024 2:49 PM EST Height 175.3 cm (5' 9 ) 10/30/2024 2:49 PM EST Body Mass Index 33.08 10/30/2024 2:49 PM EST Plan of Treatment Upcoming Encounters Date Type Department Care Team (Late st Contact Info) Description 03/10/2025 9:45 AM EDT Office Visit Internal Medicine - [address] [phone] Ok Barakat MD [address] [place] [id number] Health Maintenance Due Date Last Done Comments Pneumococcal Vaccine: 50+ Years (1 of 2 - PCV) 1982 Pneumococcal Vaccine: Pediatrics (0 to 5 Years) and At-Risk Patients (6 to 64 Years) (1 of 2 - PCV) 1982 Zoster Vaccines (1 of 2) 1982 HIV Screening 08/13/2022 RSV Immunization Patients 60+ Years Old (1 - Risk 60-74 years 1-dose series) 2023 Hypertension/CHF/CAD Annual BMP Blood Test 06/05/2025 06/05/2024, 06/05/2024 Depression Screening 10/29/2025 10/29/2024 Social Influencers of Health Screening 10/29/2025 10/29/2024 DTaP,Tdap,and Td Vaccines (4 - Td or Tdap) 05/02/2028 05/02/2018, 12/21/2012, 09/06/2002 Colorectal Cancer Screening: Colonoscopy 07/01/2029 07/01/2019 Cholesterol Screening (Lipid Panel) 07/16/2029 07/16/2024, 06/05/2024, 06/05/2024 Hepatitis C Screening Completed 05/02/2018 COVID-19 Vaccine Completed 05/22/2024, , 06/13/2022, Additional history exists Influenza Vaccine Completed 05/22/2024, , 06/13/2022, Additional history exists HIB Vaccines Aged Out No longer eligi ble based on patient's age to complete this topic HPV Vaccines Aged Out No longer eligi ble based on patient's age to complete this topic Hepatitis A Vaccines Aged Out No long er eligible based on patient's age to complete this topic Hepatitis B Vaccines Aged Out No long er eligible based on patient's age to complete this topic IPV Vaccines Aged Out No longer eligi ble based on patient's age to complete this topic MMR Vaccines Aged Out No longer eligi ble based on patient's age to complete this topic Meningococcal ACWY Vaccine Aged Out N o longer eligible based on patient's age to complete this topic Meningococcal B Vacine Aged Out No lo nger eligible based on patient's age to complete this topic RSV Immunization Patients Under 20 months Aged Out No longer eligible based on patient's age to complete this topic Varicella Vaccines Aged Out No longer eligible based on patient's age to complete this topic Procedures Procedure Name Priority Date/Time Associated Diagnosis Comments LIPID PANEL WITH REFLEX TO DIRECT LDL Routine 07/16/2024 9:31 AM EST Hyperlipemia ANNUAL BMP BLOOD TEST Routine 06/05/2024 COLONOSCOPY Routine 07/01/2019 HEPATITIS C SCREENING Routine 05/02/2018 from Last 3 Months or Most Recently Relevant to Health Maintenance Results * Lipid panel with reflex to direct LDL (07/16/2024 9:31 AM EST) [facility] Cholesterol 155 0 - 200 mg/dL LAB CHEMISTRY METHOD 07/16/2024 3:51 PM EST [facility] Triglycerides 113 0 - 150 mg/dL LAB CHEMISTRY METHOD 07/16/2024 3:51 PM EST [facility] HDL 48 >=40 mg/dL LAB CHEMISTRY METHOD 07/16/2024 3:51 PM EST [facility] LDL Calculated 84 0 - 100 mg/dL LAB CHEMISTRY METHOD 07/16/2024 3:51 PM EST [facility] VLDL Cholesterol Jacoby 22.6 mg/dL LAB CHEMISTRY METHOD 07/16/2024 3:51 PM EST [facility] Non HDL Chol. (LDL+VLDL) 107 <145 mg/dL LAB CHEMISTRY METHOD 07/16/2024 3:51 PM EST [facility] Chol/HDL Ratio 3.2 0.0 - 4.4 LAB CHEMISTRY METHOD 07/16/2024 3:51 PM EST [facility] Blood Venous blood specimen / Unknown Venipuncture / Unknown 07/16/2024 9:31 AM EST 07/16/2024 9:31 AM EST Ok Barakat MD LAB BLOOD ORDERABLES Lucía l Result [facility] [address] [place] [address], [place] [phone] * Annual BMP Blood Test (06/05/2024) [facility] Annual BMP Blood Test ABSTRACTED Historical Provider HEALTH MAINTENANCE Final Result * Colonoscopy (07/01/2019) [facility] Colonoscopy no interpretation , abstracted Anatomical Region Laterality Modality Other Historical Provider HEALTH MAINTENANCE Final Result * Hepatitis C Screening (05/02/2018) Hepatitis C Screening ABSTRACTED Historical Provider HEALTH MAINTENANCE Final Result from Last 3 Months or Most Recently Relevant to Health Maintenance Insurance [facility] Care Teams Printing Equipment Mechanic Apprentice Relationship Specialty Start Date End Date Ok Barakat MD [address] [place] [id number] PCP - General Internal Medicine 02/06/17
--- OUTSIDE RECORDS SUMMARY | 2024-11-12 11:40 | XMS_ITS | Encounter Summary ---
Author Organization [facility] Address [address] [facility] [address] [place] [address] Phone Care Team Providers Care Supervisor Personnel Clerks Name Role Phone Ok Schuler Primary Care Provider [phone] Encounter Details Date Type Department Care Team (Late st Contact Info) Description 09/18/2023 Office Communication [facility] [address] [facility] [address] [place] [address] En Young MD [address] [facility] [address] [place] [phone] Social History Tobacco Use Types Packs/Day Years Used Date Smoking Tobacco: Never Smokeless Tobacco: Never Alcohol Use Standard Drinks/Week Comments No 0 (1 standard drink = 0.6 oz pur e alcohol) Sex and Gender Information Value Date Recorded Sex Assigned at Male 12/14/2020 6:11 PM EDT Legal Sex Male 5:18 PM EST Gender Identity Male 12/14/2020 6:11 PM EDT Sexual Orientation Not on file documented as of this encounter Miscellaneous Notes * Telephone Encounter - Kayla Spears ARNP - 09/22/2023 2:42 PM EST Thank you. * Telephone Encounter - Cortney Marquez - 09/19/2023 8:05 AM EST Scheduled to see La Spears ROD CUP FILLER on 09/20/2023 with injection appointment to follow * Telephone Encounter - En Young MD - 09/18/2023 9:42 PM EST Make sure he has f/u in 3-4 wks with any RTANE doc documented in this encounter Plan of Treatment Not on file documented as of this encounter Visit Diagnoses Not on filedocumented in this encounter Care Teams Supervisor Personnel Clerks Relationship Specialty Start Date End Date Ok Schuler [address] [place] [id number] PCP - General 09/14/20 documented as of this encounter
--- OUTSIDE RECORDS SUMMARY | 2024-11-12 11:40 | XMS_ITS | Encounter Summary ---
Author Organization [facility], Address [address] [place] [address] Phone Care Team Providers Care Technical Rep Name Role Phone Ok Schuler Primary Care Provider Encounter Details Date Type Department Care Team (Late st Contact Info) Description 12/19/2023 Documentation Only [facility], [address] [place] [phone] [place] [address] [place] [address] Social History Tobacco Use Types Packs/Day Years [...] on file documented as of this encounter Plan of Treatment Not on file documented as of this encounter Visit Diagnoses Not on filedocumented in this encounter Care Teams Technical Rep Relationship Specialty Start Date End Date Ok Schuler [address] [place] [id number] PCP - General 09/14/20 documented as of this encounter
--- OUTSIDE RECORDS SUMMARY | 2024-11-12 11:40 | XMS_ITS | Encounter Summary ---
Author Organization [facility] Address [address] [place] [address] Care Team Providers Care Online Content Developer Name Role Phone Ok Barakat MD Primary Care Provider [phone] Reason for Visit * Reason Comments Follow-up Medication Review Encounter Details Date Type Department Care Team (Late st Contact Info) Description 10/30/2024 2:45 PM EST Office Visit Internal Medicine - [address] [phone] Ok Barakat MD [address] [place] [id number] Kidney transplant recipient (Primary Dx); Hypertension, unspecified type; Hyperlipidemia, unspecified hyperlipidemia type; Gout, unspecified cause, unspecified chronicity, unspecified site Social History Tobacco Use Types Packs/Day Years [...] on file Sexual Orientation Not on file documented as of this encounter Last Filed Vital Signs Vital Sign Reading Time Taken Comments Blood Pressure 136/68 10/30/2024 3:25 PM EST Pulse 50 10/30/2024 2:49 PM EST Temperature - - Respiratory Rate - - Oxygen Saturation - - Inhaled Oxygen Concentration - - Weight 102 kg (224 lb) 10/30/2024 2:49 PM EST Height 175.3 cm (5' 9 ) 10/30/2024 2:49 PM EST Body Mass Index 33.08 10/30/2024 2:49 PM EST documented in this encounter Ordered Prescriptions Prescription Sig Dispense Quantity Refills Last Filled Start Date End Date aspirin 81 mg EC tablet Take 1 tablet (81 mg total) by mouth 1 (one) time each day. 90 tablet 1 10/30/2024 pantoprazole (PROTONIX) 40 mg EC tablet Take 1 tablet (40 mg total) by mouth 2 (two) times a day. 90 tablet 1 10/30/2024 carvediloL (Coreg) 25 mg tablet Take 1 tablet (25 mg total) by mouth 2 (two) times a day with meals. 90 tablet 1 10/30/2024 documented in this encounter Progress Notes * kO Barakat MD - 10/30/2024 2:45 PM ESTAssociated Problem(s): Kidney transplant recipient He is being monitored by nephrology closely. He is up-to-date with his lab work with nephrology. * Ok Barakat MD - 10/30/2024 2:45 PM ESTAssociated Problem(s): HTN (hypertension) Blood pressure is okay. He will follow low-sodium diet. Continue regimen of carvedilol and torsemide. * Ok Barakat MD - 10/30/2024 2:45 PM ESTAssociated Problem(s): HLD (hyperlipidemia) Under control now. Continue atorvastatin. * Ok Barakat MD - 10/30/2024 2:45 PM ESTAssociated Problem(s): Gout Continue allopurinol 100 mg daily. * Ok Barakat MD - 10/30/2024 2:45 PM EST CHIEF COMPLAINT: Chief Complaint Patient presents with Follow-up Medication Review IDENTIFIER: Davion Frias is a 59 y.o. old male. HPI Patient is 59-year-old man who presents to the office today for medication review. Patient was seen by nephrology on 09/10/2024. He has a history of donor renal transplant (11/11/2023) He has been on Coreg which is keeping his blood pressure at goal. He followed up with gastroenterology on 07/16/2024 for history of duodenal ulcer, GERD, anemia. He was advised to follow-up with his clinical registered nurse as well as baggage checker as he has received Procrit injections in the past. He followed up with this baggage checker/oncologist previously on 06/26/2024 for his normocytic hypoproliferative anemia, thrombocytopenia, leukopenia. Patient's hemoglobin increased with improving WBC and stable platelet counts. He was discharged from hematology consult. Was advised to reconsult if needed. He has a history of BPH and follows up with urology. ROS: GENERAL: No malaise, significant weight loss or fever HEENT: No changes in hearing or vision, nose bleeds or other nasal problems RESPIRATORY: No cough, wheezing or shortness of breath CARDIOVASCULAR: No chest pain, leg swelling or palpitations GI: No abdominal discomfort, blood in stools or black stools NECK: No lumps, goiter, pain or significant neck swelling : No dysuria, frequency or incontinence MUSCULOSKELETAL: No joint pain or swelling, back pain, or muscle pain. SKIN: No lesions, rash or itching NEURO: No persistent headache PAST MEDICAL HISTORY: Patient Active Problem List Diagnosis Date Noted HLD (hyperlipidemia) 06/10/2024 Duodenal ulcer 06/10/2024 Kidney transplant recipient 12/29/2023 Mild obstructive sleep apnea 10/08/2017 Gout 08/28/2017 CKD (chronic kidney disease), stage II 04/14/2017 CVA (cerebral vascular accident) ([facility]) 03/01/2017 HTN (hypertension) 03/01/2017 Past Surgical History: Procedure Laterality Date COLONOSCOPY 07/01/2019 PROCEDURE: HISTORICAL COLONOSCOPY; COMMENT: diverticulosis of sigmoid colon, no specimens collected, repeat 10 years OTHER SURGICAL HISTORY PROCEDURE: DENIES PREVIOUS SURGERY SOCIAL HISTORY: Social History Tobacco Use Smoking status: Never Smokeless tobacco: Never Substance Use Topics Alcohol use: No FAMILY HISTORY: No family history on file. No family status information on file. MEDICATIONS DISCONTINUED/REORDERED: Medications Discontinued During This Encounter Medication Reason carvediloL (COREG) 6.25 mg tablet pantoprazole (PROTONIX) 40 mg EC tablet ACTIVE MEDICATIONS: Outpatient Medications Marked as Taking for the 10/30/24 encounter (Office Visit) with Ok Barakat MD Medication Sig Dispense Refill allopurinoL (ZYLOPRIM) 100 mg tablet Take 1 tablet (100 mg total) by mouth 1 (one) time each day. atorvastatin (LIPITOR) 10 mg tablet Take 1 tablet (10 mg total) by mouth 1 (one) time each day. gabapentin (NEURONTIN) 100 mg capsule Take 1 capsule (100 mg total) by mouth 1 (one) time each day.90 capsule 1 loratadine (CLARITIN) 10 mg tablet Take 1 tablet (10 mg total) by mouth 1 (one) time each day. mycophenolate (MYFORTIC) 180 mg EC tablet Take by mouth 2 times daily. oxyBUTYnin XL (DITROPAN-XL) 10 mg 24 hr tablet Take by mouth. - Route: Take 1 Tablet by mouth. - OralDo not crush, chew, or split. pantoprazole (PROTONIX) 40 mg EC tablet Take 1 tablet (40 mg total) by mouth 2 (two) times a day. 90 tablet 1 rOPINIRole (REQUIP) 0.5 mg tablet Take 1 tablet (0.5 mg total) by mouth at bedtime. tacrolimus (Astagraf XL) 1 mg capsule,extended release 24hr Take by mouth. tamsulosin (FLOMAX) 0.4 mg 24 hr capsule Take 2 capsules (0.8 mg total) by mouth 1 (one) time each day. torsemide (DEMADEX) 20 mg tablet Take 1 tablet (20 mg total) by mouth. UNABLE TO FIND CPAP Historical (HISTORICAL CPAP) Sig - Route: Inhale into the lungs. - Inhalation [DISCONTINUED] carvediloL (COREG) 6.25 mg tablet Take 1 Tablet by mouth 2 times daily (with meals). [DISCONTINUED] pantoprazole (PROTONIX) 40 mg EC tablet Take 1 tablet (40 mg total) by mouth 1 (one)time each day. 90 tablet 1 ALLERGIES: Allergies Allergen Reactions Fosinopril Nifedipine PHYSICAL EXAM: Visit Vitals BP 136/68 Pulse 50 Ht 1.753 m (69 ) Wt 102 kg (224 lb) BMI 33.08 kg/m?? Smoking Status Never BSA 2.17 m?? EYES: PERRL, conjunctiva and sclera normal NOSE/SINUS: negative MOUTH/THROAT: no erythema or exudates NECK: negative HEART: regular rate, regular rhythm and no murmur LUNG: clear to auscultation LYMPH NODES: grossly normal ABDOMEN: Bowel sounds normoactive, no bruits, soft, non-tender, without organomegaly or palpable masses EXTREMITIES: No edema bilaterally. NEURO: Awake, alert and oriented x 3 SKIN: negative Assessment & Plan Kidney transplant recipient He is being monitored by nephrology closely. He is up-to-date with his lab work with nephrology. Hypertension, unspecified type Blood pressure is okay. He will follow low-sodium diet. Continue regimen of carvedilol and torsemide. Hyperlipidemia, unspecified hyperlipidemia type Under control now. Continue atorvastatin. Gout, unspecified cause, unspecified chronicity, unspecified site Continue allopurinol 100 mg daily. Today's documentation was made using voice recognition software.This note may contain grammatical errors secondary to this software. documented in this encounter Plan of Treatment Upcoming Encounters Date Type Department Care Team (Late st Contact Info) Description 03/10/2025 9:45 AM EDT Office Visit Internal Medicine - [address] [phone] Ok Barakat MD [address] [place] [id number] documented as of this encounter Visit Diagnoses Diagnosis Kidney transplant recipient- Primary Hypertension, unspecified type Hyperlipidemia, unspecified hyperlipidemia type Gout, unspecified cause, unspecified chronicity, unspecified site documented in this encounter Discontinued Medications Medication Sig Discontinue Reason Start Date End Da te carvediloL (COREG) 6.25 mg tablet Take 1 Tablet by mouth 2 times daily (with meals). 10/30/2024 pantoprazole (PROTONIX) 40 mg EC tablet Take 1 tablet (40 mg total) by mouth 1 (one) time each day. 07/17/2024 10/30/2024 documented as of this encounter Historical Medications * This list may reflect changes made after this encounter. torsemide (DEMADEX) 20 mg tablet Take 1 tablet (20 mg total) by mouth. 03/20/2024 added in this encounter Additional Health Concerns Assessment Noted Time PHQ-9 Depression Total Score: 0 10/29/19 25 6:18 PM EST documented as of this encounter Care Teams Online Content Developer Relationship Specialty Start Date End Date Ok Barakat MD [address] [place] [id number] PCP - General Internal Medicine 02/06/17 documented as of this encounter
--- OUTSIDE RECORDS SUMMARY | 2024-11-12 11:40 | XMS_ITS | Encounter Summary ---
Author Organization [facility] Address [address] [place] [address] Phone Care Team Providers Care Acetylene Torch Burner Name Role Phone Ok Schuler Primary Care Provider [phone] Encounter Details Date Type Department Care Team (Late st Contact Info) Description 07/21/2022 Telephone [facility] [address] [place] [phone] Radha Elizondo MD Social History Tobacco Use Types Packs/Day Years [...] PM EDT Sexual Orientation Not on file COVID-19 Exposure Response Date Recorded In the last 10 days, have yo u been in contact with someone who was confirmed or suspected to have Coronavirus/COVID-19? No / Unsure 07/17/2022 5:06 PM EST documented as of this encounter Miscellaneous Notes * Telephone Encounter - Julee Jaramillo - 07/21/2022 4:51 PM EST Pt called, [facility] never received his script for l[facility]opril. Please resend Thank you documented in this encounter Plan of Treatment Not on file documented as of this encounter Visit Diagnoses Not on filedocumented in this encounter Care Teams Acetylene Torch Burner Relationship Specialty Start Date End Date Ok Schuler [address] [place] [id number] PCP - General 09/14/20 documented as of this encounter
--- OUTSIDE RECORDS SUMMARY | 2024-11-12 11:40 | XMS_ITS | Encounter Summary ---
Author Organization [facility] Address [address] [place] [address] Phone Care Team Providers Care Professor Of Literature Name Role Phone Ok Schuler Primary Care Provider [phone] Encounter Details Date Type Department Care Team (Late st Contact Info) Description 07/14/2022 Telephone [facility] [address] [place] [phone] Kayla Mendieta Social History Tobacco Use Types Packs/Day Years [...] Miscellaneous Notes * Telephone Encounter - Kayla Mendieta - 07/14/2022 2:53 PM EST This PT was scheduled for a cat scan from his Neurologist but the procedure was cancelled by the insurance because they stated Dr. Elizondo had already put in an order for a cat scan. The PT has a CT for abdomen Pelvis on his chart dated 05/17/22 that hasn't been scheduled. The PT is trying to follow up on this order. documented in this encounter Plan of Treatment Not on file documented as of this encounter Visit Diagnoses Not on filedocumented in this encounter Care Teams Professor Of Literature Relationship Specialty Start Date End Date Ok Schuler [address] [place] [id number] PCP - General 09/14/20 documented as of this encounter
--- OUTSIDE RECORDS SUMMARY | 2024-11-12 11:40 | XMS_ITS | Clinical Summary ---
Author Organization [facility] Address [address] [place] [address] Care Team Providers Care Hris Specialist Name Role Phone Pcp, No Primary Care Provider Unavailabl e Encounters Date Type Department Care Team Description 08/21/2024 Travel 08/20/2024 Orders Only [facility] [address] [place] [address] Provider, MD Lanette from Last 3 Months Social History Tobacco Use Types Packs/Day Years Used Date Smoking Tobacco: Never Assessed Sex and Gender Information Value Date Recorded Sex Assigned at Male 08/20/2024 2:15 PM EST Gender Identity Male 08/20/2024 2:15 PM EST Sexual Orientation Heterosexual (straight) 08/20 2:15 PM EST Plan of Treatment Health Maintenance Due Date Last Done Comments Hepatitis C Virus Screening 1963 HIV Screening 1976 DTaP/Tdap/Td Vaccines (1 - Tdap) 1982 Colonoscopy 2008 Pneumococcal Vaccines 50+ (1 of 1 - PCV) 2013 Zoster (Shingles) Vaccine (1 of 2) 2013 COVID-19 Vaccine ( season) 2024 07/30/2023, 06/13/2022, 08/23/2021, Additional history exists RSV Vaccine 60 years and older and Patients (1 - 1-dose 75+ series) 2038 Influenza Vaccine Completed 05/22/2024, , 06/13/2022, Additional history exists Hepatitis B Vaccines Aged Out No long er eligible based on patient's age to complete this topic Care Teams Hris Specialist Relationship Specialty Start Date End Date Pcp, No PCP - General General Medicine 08/23/24
--- OUTSIDE RECORDS SUMMARY | 2024-11-12 11:40 | XMS_ITS | Encounter Summary ---
Author Organization [facility], Address [address] [address] Phone Care Team Providers Care Blindstitch Hemmer Name Role Phone Ok Schuler Primary Care Provider [phone] Reason for Visit * Reason Comments Med Refill Encounter Details Date Type Department Care Team (Late st Contact Info) Description 02/09/2024 Refill [facility] [address] [place] [phone] Abimael Campo MD [address] [place] [phone] Social History Tobacco Use Types Packs/Day Years [...] on filedocumented in this encounter Care Teams Blindstitch Hemmer Relationship Specialty Start Date End Date Ok Schuler [address] [place] [phone] PCP - General 09/14/20 documented as of this encounter
--- OUTSIDE RECORDS SUMMARY | 2024-11-12 11:40 | XMS_ITS | Clinical Summary ---
Author Organization [facility] Address [address] [place] [address] Phone Care Team Providers Care Register Repairer Name Role Phone Ok Schuler Primary Care Provider [phone] Allergies Active Allergy Reactions Criticality Noted Date Comments Fosinopril Other (see comments) 09/08/2021 Nifedipine 11/17/2020 Medications furosemide (LASIX) 80 MG tablet Take 1 tablet (80 mg total) by mouth in the morning and 1 tablet (80 mg total) in the evening. 60 tablet 11 023 Active Additional Information Patient taking differently:80 mg OralDaily, 1/2 tab daily, Reported on 07/18/2023 rOPINIRole (REQUIP) 0.5 MG tablet TAKE 1 TABLET BY MOUTH EVERY DAY AT NIGHT 90 tablet 1 023 Active oxybutynin XL (DITROPAN-XL) 10 MG 24 hr tablet Take 10 mg by mouth 1 (one) time each day in the evening 023 Active tamsulosin (FLOMAX) 0.4 MG 24 hr capsule TAKE 1 CAPSULE BY MOUTH 1 TIME EACH DAY. 90 capsule 3 023 Active cholecalciferol (VITAMIN D-3) 50 MCG (1999) capsule TAKE 1 CAPSULE BY MOUTH EVERY DAY IN THE MORNING 90 capsule 3 023 Active clotrimazole-betametha sone (LOTRISONE) cream APPLY TOPICALLY 2 TIMES A DAY FOR 28 DAYS. 30 g 023 Active doxazosin (Cardura) 4 MG tablet Take 1 tablet (4 mg total) by mouth every night 30 tablet 11 023 Active hydrOXYzine (ATARAX) 10 MG tablet Take 1 tablet (10 mg total) by mouth 3 (three) times a day if needed for itching 90 tablet 3 023 Active cloNIDine (CATAPRES) 0.1 MG tablet Take 1 tablet (0.1 mg total) by mouth in the morning and 1 tablet (0.1 mg total) in the evening. 60 tablet 11 023 Active calcitriol (ROCALTROL) 0.5 MCG capsuleIndications:Sta ge 5 chronic kidney disease (HCC),Secondary hyperparathyroidism of renal origin (HCC) Take 1 capsule (0.5 mcg total) by mouth 1 (one) time each day 90 capsule 3 024 Active epoetin salazar (Procrit) 81432 UNIT/ML injection INJECT 40,000 UNITS (1ML) SUBCUTANEOUSLY EVERY 7 DAYS 4 mL 5 024 Active sevelamer (Renagel) 800 MG tabletIndications:Stag e 5 chronic kidney disease (HCC),Secondary hyperparathyroidism of renal origin (HCC),Hyperphosphatemi a due to chronic kidney disease Take 1 tablet (800 mg total) by mouth in the morning and 1 tablet (800 mg total) at noon and 1 tablet (800 mg total) in the evening. Take with meals. Swallow tablet whole; do not crush, break, or chew.. 270 tablet 3 024 2024 Hospital, Clinic, or Other Facility Administered Medication Ordered Dose Route Frequency Start Date End Date Status Epoetin Salazar-epbx solution 30,000 UnitsIndications:Chronic kidney disease, not otherwise specified,Anemia in chronic kidney disease 69860 Units IJ Once 08/30/2023 Active Active Problems Problem Noted Date Diagnosed Date IgA nephropathy 06/20/2023 Stage 5 chronic kidney disease 04/27/2023 Anemia in chronic kidney disease 04/27/2023 Right flank pain 05/17/2022 Hyperkalemia 03/21/2022 Hypertensive disorder 01/13/2022 Benign essential hypertension 11/17/2020 Acquired complex renal cyst 11/17/2020 Proteinuria 11/17/2020 Resolved Problems Problem Noted Date Diagnosed Date Resolved Date Chronic kidney disease, stage 4 (severe) 01/25/2023 04/27/2023 Weight loss 02/28/2022 12/20/2022 Stage 3b chronic kidney disease 11/17/2020 01/25/2023 Edema 11/17/2020 01/13/2022 Gout 11/17/2020 01/13/2022 Immunizations Name Administration Dates Next Due Influenza, Quadrivalent, Preservative Free 06/16 Influenza, Unspecified 06/16/2020 Pfizer SARS-COV-2 08/23/2021 Family History Medical History Relation Comments Hypertension Mother Relation Status Comments Father Mother Alive Social History Tobacco Use Types Packs/Day Years [...] PM EDT Sexual Orientation Not on file Last Filed Vital Signs Vital Sign Reading Time Taken Comments Blood Pressure 142/80 11/01/2023 10:34 AM EST Pulse 91 10/18/2023 8:03 AM EST Temperature - - Respiratory Rate - - Oxygen Saturation 98% 10/18/2023 8:03 AM EST Inhaled Oxygen Concentration - - Weight 96.6 kg (213 lb) 10/18/2023 8:03 AM EST Height 175.3 cm (5' 9 ) 07/18/2023 12:56 PM EST Body Mass Index 31.45 07/18/2023 12:56 PM EST Plan of Treatment Health Maintenance Due Date Last Done Comments Pneumococcal Vaccine: Pediatrics (0 to 5 Years) and At-Risk Patients (6 to 64 Years) (1 of 2 - PCV) 1969 Colorectal Cancer Screening: Annual FOBT 2012 Colorectal Cancer Screening: Colonoscopy 2012 Colorectal Cancer Screening: Sigmoidoscopy 2012 Influenza Vaccine Completed 05/22/2024, 06/16/2020, 06/16/2020 Hepatitis B Vaccine Aged Out No longe r eligible based on patient's age to complete this topic Insurance [facility] Care Teams Register Repairer Relationship Specialty Start Date End Date Ok Schuler [address] [place] [id number] PCP - General 09/14/20
--- OUTSIDE RECORDS SUMMARY | 2024-11-12 11:40 | XMS_ITS | Encounter Summary ---
Author Organization [facility], Address [address] [place] [address] Phone Care Team Providers Care Mate First Name Role Phone Ok Schuler Primary Care Provider [phone] Encounter Details Date Type Department Care Team (Late st Contact Info) Description 01/12/2024 Documentation Only [facility], [address] [place] [phone] [place] [address] [place] [phone] Social History Tobacco Use Types Packs/Day Years [...] on filedocumented in this encounter Care Teams Mate First Relationship Specialty Start Date End Date Ok Schuler [address] [place] [id number] PCP - General 09/14/20 documented as of this encounter
--- OUTSIDE RECORDS SUMMARY | 2024-11-12 11:40 | XMS_ITS | Encounter Summary ---
Author Organization [facility] Address [address] [place] [address] Phone Care Team Providers Care Vending Mechanic Name Role Phone Ok Schuler Primary Care Provider [phone] Encounter Details Date Type Department Care Team (Late st Contact Info) Description 03/04/2021 Orders Only [facility] [address] [place] [address] Radha Elizondo MD Stage 3b chronic kidney disease (HCC) Social History Tobacco Use Types Packs/Day Years Used Date Smoking Tobacco: Never Alcohol Use Standard Drinks/Week Comments [...] on file documented as of this encounter Procedures Procedure Name Priority Date/Time Associated Diagnosis Comments VITAMIN D 25 HYDROXY Routine 02/22/2021 9:37 AM EDT Stage 3b chronic kidney disease (HCC) URIC ACID Routine 02/22/2021 9:37 AM EDT Stage 3b chronic kidney disease (HCC) PTH, INTACT Routine 02/22/2021 9:37 AM EDT Stage 3b chronic kidney disease (HCC) RENAL FUNCTION PANEL Routine 02/22/2021 9:37 AM EDT Stage 3b chronic kidney disease (HCC) documented in this encounter Results * Vitamin D 25 hydroxy (02/22/2021 9:37 AM EDT) Vitamin D, 25-Hydroxy 28.2 (20-50) NG/ML [facility] Comment: Testing performed or reported by [facility], a Service of [address] [address] Julia Juárez MD, Water Tender Blood (Blood, Venous) 02/22/2021 9:37 AM EDT 02/22/2021 9:39 AM EDT Radha Elizondo MD LAB BLOOD ORDERABLES Final Resu lt Performing Organization Address [facility]/ZIP Co de Phone Number [facility] * (ABNORMAL) PTH, intact (02/22/2021 9:37 AM EDT) PTH, Intact 109(H) (15-65) PG/ML [facility] Comment: Testing performed or reported by [facility], a Service of [facility], [address] [place] [address] Julia Juárez MD, Water Tender Blood (Blood, Venous) 02/22/2021 9:37 AM EDT 02/22/2021 9:39 AM EDT Radha Elizondo MD LAB BLOOD ORDERABLES Final Resu lt Performing Organization Address City/[facility]/ZIP Co de Phone Number [facility] * Uric acid (02/22/2021 9:37 AM EDT) Uric Acid 5.8 (2.6-8.7) MG/DL [facility] Comment: Testing performed or reported by [facility], a Service of [address] [address] Julia Juárez MD, Water Tender Blood (Blood, Venous) 02/22/2021 9:37 AM EDT 02/22/2021 9:39 AM EDT us Radha Elizondo MD LAB BLOOD ORDERABLES Final Resu lt [facility] * (ABNORMAL) Renal function panel (02/22/2021 9:37 AM EDT) Glucose 105(H) (70-99) MG/DL [facility] BUN 38(H) (6-20) MG/DL [facility] Creatinine 2.8(H) (0.7-1.2) MG/DL [facility] Sodium 143 (133-145) MMOL/L [facility] Potassium 4.1 (3.6-5.2) MMOL/L [facility] Chloride 104 (98-107) MMOL/L [facility] Bicarbonate (CO2) 28 (22-29) MMOL/L [facility] Anion Gap 11 (4-17) [facility] Albumin 4.1 (3.4-4.8) GM/DL [facility] Calcium 9.2 (8.6-10.5) MG/DL [facility] Phosphorus, Serum 2.9 (2.5-4.5) MG/DL [facility] Est GFR Non 24 ML/MIN/1.7 3 M2 [facility] Comment: Creatinine based estimated glomerular filtration rate (eGFR) is calculated using the Chronic Kidney Disease Epidemiology Collaboration (CKD-EPI). The CKD-EPI creatinine equation has not been validated in children (<18 years), women or in some racial or ethnic subgroups other than Caucasians and Americans. EST GFR 27 ML/MIN/1.7 3 M2 [facility] Comment: Creatinine based estimated glomerular filtration rate (eGFR) is calculated using the Chronic Kidney Disease Epidemiology Collaboration (CKD-EPI). The CKD-EPI creatinine equation has not been validated in children (<18 years), women or in some racial or ethnic subgroups other than Caucasians and Americans. Testing performed or reported by [facility], a Service of [facility], [address] [place] [id number] Julia Juárez MD, Water Tender Blood (Blood, Venous) 02/22/2021 9:37 AM EDT 02/22/2021 9:39 AM EDT us Radha Elizondo MD LAB BLOOD ORDERABLES Final Resu lt [facility] documented in this encounter Visit Diagnoses Diagnosis Stage 3b chronic kidney disease (HCC) documented in this encounter Care Teams Vending Mechanic Relationship Specialty Start Date End Date Ok Schuler [address] [place] [id number] PCP - General 09/14/20 documented as of this encounter
[2024-11-12 18:42] LABS: Basophils Percent Auto 0.3 % (0-2); SCAN SMEAR FLAG 1
[2024-11-12 18:44] LABS: Eosinophils Absolute Auto 0.1 X10*3/uL (0.0-0.4); Eosinophils Percent Auto 2.6 % (0-4); Hematocrit 36.3 % (42.0-52.0); Hemoglobin 11.6 g/dl (14.0-18.0); Imm Gran Abs Auto 0.02 X10*3/uL (0.00-0.03); Imm Gran Pct Auto 0.6 % (0.0-0.4); Lymphocytes Absolute Auto 0.6 X10*3/uL (1.2-4.9); Lymphocytes Percent Auto 16.3 % (20-40); MANUAL DIFF FLAG SCAN; Mean Corpuscular Hemoglobin 27.7 pg (27.0-33.0); Mean Corpuscular Volume 86.6 fL (80.0-98.0); Mean Platelet Volume 13.3 fL (9.4-12.4); Monocytes Absolute Auto 0.6 X10*3/uL (0.1-1.2); Monocytes Percent Auto 16.9 % (2-11); Neutrophils Absolute Auto 2.2 x10*3/uL (2.0-8.3); Neutrophils Percent Auto 63.3 % (45-73); Platelet Count 122 X10*3/uL (160-400); Red Blood Count 4.19 X10*6/uL (4.60-5.80); Red Cell Distribution Width 14.2 % (11.0-16.0); White Blood Count 3.5 X10*3/uL (4.8-10.8)
[2024-11-12 18:48] LABS: PLT ABN DIST 1
[2024-11-12 19:45] LABS: Anion Gap 12 (12-20); Blood Urea Nitrogen 19 mg/dL (9-16); Calcium 9.2 mg/dL (8.4-10.2); Carbon Dioxide 30 mmol/L (22-29); Chloride 104 mmol/L (96-108); Estimated Glomerular Filt Rate 43; Magnesium 2.2 mg/dL (1.6-2.6); Phosphorus 2.5 mg/dL (2.7-4.5); Potassium 3.7 mmol/L (3.3-5.1); Sodium 142 mmol/L (135-145)
[2024-11-12 20:04] LABS: SLIDE REVIEW VERIFIED
== END 2024-11-12 10:01 | disposition home or self-care (01) ==
LOC: HO.HKASLDS 10:00
PROVIDERS: Visit Provider Internal Medicine Nephrology
DX: D72.818 Other decreased white blood cell count (principal); I10 Essential (primary) hypertension; Z94.0 Kidney transplant status
CPT/HCPCS: 36415; 80051; 82310; 82565; 83735; 84100; 84520; 85025

== ENCOUNTER 2024-11-19 11:12 | Outpatient (AMB) | payer OTHER, SELFPAY ==
--- NOTE | 2024-11-19 11:19 | HO.NEPHOV_ITS ---
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 He was not on dialysis. Induction was done using IV methylprednisone and Thymoglobulin. Donor was CMV positive, EBV positive with a KDPI 82%. Patient was CMV positive, EBV positive with 0% PRA. He had 2 hour session of hemodialysis for hyperkalemia postoperatively. He had multiple admissions for GI bleed and anemia, gastric ulcers with no evidence of active bleeding. He had delayed graft function. He has been followed up by Urology. He underwent biopsy on 01/12/2024 which showed mild tubulitis T1 with minimal interstitial inflammation less than 10% , global sclerosis of 1/20 normal I the the mild to moderate diffuse interstitial fibrosis involving 20-30% of cortical area. His BK virus PCR has been negative. His DSA was negative. His Doppler showed no renal artery stenosis. He denies any chest pain, shortness of breath, proximal nocturnal dyspnea, orthopnea, pedal edema, urinary symptoms, fever. He is compliant with his medications. He maintains good hydration. His urine output is good. He avoids [id number] medications [facility] Medical History ESRD (end stage renal disease) CVA (cerebral vascular accident) TONG (obstructive sleep apnea) Gout Hypertension Surgical History Kidney replaced by transplant Social History Alcohol intake: never Patient Tobacco Use Status: Never used Tobacco Review of Systems Const All systems reviewed & are unremarkable except as noted in HPI and below Physical Exam Vital Signs: Last Vital Signs Pulse 69 11/19/24 11:20 BP 152/88 H 11/19/24 11:20 Pulse Ox 97 11/19/24 11:20 Oxygen Delivery Method Room Air 11/19/24 11:20 BMI result Body Mass Index 33.9 Const General: comfortable and no acute distress Orientation/consciousness: patient oriented x3 HEENT Head: Yes normocephalic Mouth: Normal oral and palatal mucosa present Eyes EOM: EOMs intact bilaterally Neck Neck: Yes supple Resp Auscultation: clear to auscultation bilaterally Cardio Jugular venous distension: no JVD Rate: regular rate GI Palpation (GI): Soft to palpation Auscultation: normal bowel sounds General: Yes no CVA tenderness Back/Spine/Pelvis Back: no CVA tenderness Skin General skin exam: no rashes or lesions noted Neuro General: patient oriented x3 and moves all extremities Extrem General: Yes no pedal edema Results Reviewed Nephrology Results: Hgb 11.6 g/dl (14.0-18.0) L 11/12/24 WBC 3.5 X10*3/uL (4.8-10.8) L 11/12/24 Plt Count 122 X10*3/uL (160-400) L 11/12/24 Sodium 142 mmol/L (135-145) 11/12/24 Potassium 3.7 mmol/L (3.3-5.1) 11/12/24 Chloride 104 mmol/L (96-108) 11/12/24 Carbon Dioxide 30 mmol/L (22-29) H 11/12/24 BUN 19 mg/dL (9-16) H 11/12/24 Creatinine 1.65 mg/dL (0.5-1.4) H 11/12/24 Calcium 9.2 mg/dL (8.4-10.2) 11/12/24 Phosphorus 2.5 mg/dL (2.7-4.5) L 11/12/24 PTH Intact 121.2 pg/mL (8.7-77.1) H 05/07/24 Assessment & Plan Assessment & Plan (1) Leucopenia: Code(s): D72.819 - Decreased white blood cell count, unspecified Category: Medical Qualifiers: Leukopenia type: other Qualified Code(s): D72.818 - Other decreased white blood cell count (2) Hypertension: Code(s): I10 - Essential (primary) hypertension Category: Medical Qualifiers: Hypertension type: primary hypertension Qualified Code(s): I10 - Essential (primary) hypertension (3) Renal transplant recipient: Code(s): Z94.0 - Kidney transplant status Category: Surgical Plan Davion had a preemptive donor renal transplant 11 November 2023. He has H/O delayed graft function. He needed 1 hemodialysis treatment postoperatively. His DSA was negative. His urinalysis was bland. His serum creatinine has been stable. His urine protein creatinine ratio was normal. His Prospera was down to 0.13 on 04 of February. His transplant ultrasound in December showed mild hydronephrosis post stent removal. Allograft biopsy was done on 01/12/2024 which did not show any rejection. He has been on belatacept .( upcoming dose Sep 15 2024; Due May 26). 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 ( last dose of Belatecept was 06/23/2024) His Myfortic dose was decreased to 360 mg twice daily for leukopenia. He had finished a Mycelex but is on Bactrim and Valcyte. His BK virus PCR has been negative. His EBV and CMV status for donor and recipient were positive. He is on Coreg which has been keeping his blood pressure at goal. His calcium, phosphorus and magnesium has been at goal. He is not on any oral sodium bicarbonate. He had a bone marrow biopsy & was WNL as per patient. He is on myfortic to 180 mg bid which I plan to put back to 360 mg bid once her leucopenia resolves. I did not make any other medication changes today. Follow-up lab work ordered. Follow-up appointment given Orders: Orders Creatinine 2 Months I10 - Essential (primary) hypertension, Z94.0 - Kidney transplant status Blood Urea Nitrogen 2 Months I10 - Essential (primary) hypertension, Z94.0 - Kidney transplant status Alanine Aminotransferase 2 Months I10 - Essential (primary) hypertension, Z94.0 - Kidney transplant status Aspartate Amino Transferase 2 Months I10 - Essential (primary) hypertension, Z94.0 - Kidney transplant status Complete Blood Count Auto Diff 2 Months I10 - Essential (primary) hypertension, Z94.0 - Kidney transplant status Electrolytes 2 Months I10 - Essential (primary) hypertension, Z94.0 - Kidney transplant status Calcium 2 Months I10 - Essential (primary) hypertension, Z94.0 - Kidney transplant status Magnesium 2 Months I10 - Essential (primary) hypertension, Z94.0 - Kidney transplant status Phosphorus 2 Months I10 - Essential (primary) hypertension, Z94.0 - Kidney transplant status Coding Level of Care Code Est Pt Level 4 (73529) Diagnoses Other decreased white blood cell (WBC) count D72.818 Leukopenia type: other Primary hypertension I10 Hypertension type: primary hypertension Renal transplant recipient Z94.0
[2024-11-19 11:20] VITALS: BP 152/88; PULSE 69; O2SAT 97; BMI 33.9
--- OUTSIDE RECORDS SUMMARY | 2024-11-19 13:34 | XMS_ITS | Encounter Summary ---
Author Organization [facility], Address [address] [place] [address] Phone Care Team Providers Care Paper Sales Representative Name Role Phone kO Schuler Primary Care Provider Encounter Details Date Type Department Care Team (Late st Contact Info) Description 12/19/2023 Documentation Only [facility], [address] [place] [phone] [place], [place] [address] [place] [address] Social History Tobacco Use Types [...] on filedocumented in this encounter Care Teams Paper Sales Representative Relationship Specialty Start Date End Date Ok Schuler [address] [place] [id number] PCP - General 09/14/20 documented as of this encounter
--- OUTSIDE RECORDS SUMMARY | 2024-11-19 13:34 | XMS_ITS | Encounter Summary ---
Author Organization [facility] Address [address] [facility] [facility] [address] [place] [address] Phone Care Team Providers Care Passenger Conductor Name Role Phone Ok Schuler Primary Care Provider [phone] Encounter Details Date Type Department Care Team (Late st Contact Info) Description 09/18/2023 Office Communication [facility] [address] [facility] [address] [place] [address] En Young MD [address] [facility] [address] [place] [phone] Social History Tobacco Use Types Packs/Day Years [...] AM EST Scheduled to see La Spears FEED ADVISER on 09/20/2023 with injection appointment to follow * Telephone Encounter - En Young MD - 09/18/2023 9:42 PM EST Make sure he has f/u in 3-4 wks with any RTANE doc documented in this encounter Plan of Treatment Not on file documented as of this encounter Visit Diagnoses Not on filedocumented in this encounter Care Teams Passenger Conductor Relationship Specialty Start Date End Date Ok Schuler [address] [place] [id number] PCP - General 09/14/20 documented as of this encounter
--- OUTSIDE RECORDS SUMMARY | 2024-11-19 13:34 | XMS_ITS | Encounter Summary ---
Author Organization [facility], Address [address] [place] [address] Phone Care Team Providers Care Podiatric Technician Name Role Phone Ok Schuler Primary Care Provider Encounter Details Date Type Department Care Team (Late st Contact Info) Description 01/12/2024 Documentation Only [facility], [address] [place] [phone] [place], [place] [address] [place] [phone] Social History Tobacco Use Types Packs/Day Years [...] on filedocumented in this encounter Care Teams Podiatric Technician Relationship Specialty Start Date End Date Ok Schuler [address] [place] [id number] PCP - General 09/14/20 documented as of this encounter
--- OUTSIDE RECORDS SUMMARY | 2024-11-19 13:34 | XMS_ITS | Encounter Summary ---
Author Organization [facility] Address [address] [place] [address] Care Team Providers Care Retail Chain Store Area Supervisor Name Role Phone Ok Baraakt MD Primary Care Provider [phone] Reason for Visit * Reason Comments Follow-up Medication Review Encounter Details Date Type Department Care Team (Late st Contact Info) Description 10/30/2024 2:45 PM EST Office Visit Internal Medicine - [address] [phone] Ok Barakat MD [address] [place] [address] Kidney transplant recipient (Primary Dx); Hypertension, unspecified [...] documented in this encounter Progress Notes * Ok Barakat MD - 10/30/2024 2:45 [...] He was advised to follow-up with his sensitometrist as well as lead game designer as he has received Procrit injections in the past. He followed up with this lead game designer/oncologist previously on 06/26/2024 for his normocytic hypoproliferative [...] stage II 04/14/2017 CVA (cerebral vascular accident) ([facility]) 03/01/2017 HTN (hypertension) 03/01/2017 Past Surgical History: [...] AM EDT Office Visit Internal Medicine - [address] [phone] Ok Barakat MD [address] [place] [address] documented as of this encounter Visit Diagnoses [...] documented as of this encounter Care Teams Retail Chain Store Area Supervisor Relationship Specialty Start Date End Date Ok Barakat MD [address] [place] [address] PCP - General Internal Medicine 02/06/17 documented as of this encounter
--- OUTSIDE RECORDS SUMMARY | 2024-11-19 13:34 | XMS_ITS | Clinical Summary ---
Author Organization [facility] Address [address] [place] [address] Phone Care Team Providers Care Embryology Teacher Name Role Phone Ok Schuler Primary Care Provider [phone] Allergies Active Allergy Reactions Criticality Noted Date [...] capsule 3 024 Active epoetin salazar (Procrit) 53571 UNIT/ML injection INJECT 40,000 UNITS (1ML) SUBCUTANEOUSLY EVERY 7 DAYS 4 mL 5 024 Active Hospital, Clinic, or Other Facility Administered Medication Ordered Dose Route Frequency Start Date End Date Status Epoetin Salazar-epbx solution 30,000 UnitsIndications:Chronic kidney disease, not otherwise specified,Anemia in chronic kidney disease 955[address] Units IJ Once 08/30/2023 Active Active Problems [...] patient's age to complete this topic [place] [address] [place] [address] [place] [address] Care Teams Embryology Teacher Relationship Specialty Start Date End Date Ok Schuler [address] [place] [address] PCP - General 09/14/20
--- OUTSIDE RECORDS SUMMARY | 2024-11-19 13:34 | XMS_ITS | Encounter Summary ---
Author Organization [facility] Address [address] [place] [address] Phone Care Team Providers Care Theatrical Agent Name Role Phone Ok Schuler Primary Care Provider [phone] Encounter Details Date Type Department Care Team (Late st Contact Info) Description 03/04/2021 Orders Only [facility] [address] [place] [address] Radha Elizondo MD Stage 3b chronic kidney [...] EDT) Vitamin D, 25-Hydroxy 28.2 (20-50) NG/ML [facility] Comment: Testing performed or reported by [facility], a Service of [address] [address] Julia Juárez MD, Manager Internet Blood (Blood, Venous) 02/22/2021 9:37 AM EDT 02/22/2021 9:39 AM EDT Radha Elizondo MD LAB BLOOD ORDERABLES Final Resu lt Performing Organization Address [facility]/ZIP Co de Phone Number [facility] * (ABNORMAL) PTH, intact (02/22/2021 9:37 AM EDT) PTH, Intact 109(H) (15-65) PG/ML [facility] Comment: Testing performed or reported by [facility], a Service of [facility], [address] [place] [address] Julia Juárez MD, Manager Internet Blood (Blood, Venous) 02/22/2021 9:37 AM EDT 02/22/2021 9:39 AM EDT Radha Elizondo MD LAB BLOOD ORDERABLES Final Resu lt Performing Organization Address City/[facility]/ZIP Co de Phone Number [facility] * Uric acid (02/22/2021 9:37 AM EDT) Uric Acid 5.8 (2.6-8.7) MG/DL [facility] Comment: Testing performed or reported by [facility], a Service of [address] [address] Julia Juárez MD, Manager Internet Blood (Blood, Venous) 02/22/2021 9:37 AM EDT 02/22/2021 9:39 AM EDT us Radha Elizondo MD LAB BLOOD ORDERABLES Final Resu lt [facility] * (ABNORMAL) Renal function panel (02/22/2021 9:37 AM EDT) Glucose 105(H) (70-99) MG/DL [facility] BUN 38(H) (6-20) MG/DL [facility] Creatinine 2.8(H) (0.7-1.2) MG/DL [facility] Sodium 143 (133-145) MMOL/L [facility] Potassium 4.1 (3.6-5.2) MMOL/L [facility] Chloride 104 (98-107) MMOL/L [facility] Bicarbonate (CO2) 28 (22-29) MMOL/L [facility] Anion Gap 11 (4-17) [facility] Albumin 4.1 (3.4-4.8) GM/DL [facility] Calcium 9.2 (8.6-10.5) MG/DL [facility] Phosphorus, Serum 2.9 (2.5-4.5) MG/DL [facility] Est GFR Non 24 ML/MIN/1.7 3 M2 [facility] Comment: Creatinine based estimated glomerular filtration rate (eGFR) is calculated using the Chronic Kidney Disease Epidemiology Collaboration (CKD-EPI). The CKD-EPI creatinine equation has not been validated in children (<18 years), women or in some racial or ethnic subgroups other than Caucasians and Americans. EST GFR 27 ML/MIN/1.7 3 M2 [facility] Comment: Creatinine based estimated glomerular filtration rate (eGFR) is calculated using the Chronic Kidney Disease Epidemiology Collaboration (CKD-EPI). The CKD-EPI creatinine equation has not been validated in children (<18 years), women or in some racial or ethnic subgroups other than Caucasians and Americans. Testing performed or reported by [facility], a Service of [facility], [address] [place] [address] Julia Juárez MD, Manager Internet Blood (Blood, Venous) 02/22/2021 9:37 AM EDT 02/22/2021 9:39 AM EDT us Radha Elizondo MD LAB BLOOD ORDERABLES Final Resu lt [facility] documented in this encounter Visit Diagnoses Diagnosis Stage 3b chronic kidney disease (HCC) documented in this encounter Care Teams Theatrical Agent Relationship Specialty Start Date End Date Ok Schuler [address] [place] [id number] PCP - General 09/14/20 documented as of this encounter
--- OUTSIDE RECORDS SUMMARY | 2024-11-19 13:34 | XMS_ITS | Clinical Summary ---
Author Organization [facility] Address [address] [place] [address] Care Team Providers Care Ice Cream Dispenser Name Role Phone Pcp, No Primary Care Provider Unavailabl e Encounters Date Type Department Care Team Description 08/21/2024 Travel from Last 3 Months Social History Tobacco [...] age to complete this topic Care Teams Ice Cream Dispenser Relationship Specialty Start Date End Date Pcp, No PCP - General General Medicine 08/23/24
--- OUTSIDE RECORDS SUMMARY | 2024-11-19 13:34 | XMS_ITS | Encounter Summary ---
Author Organization [facility] Address [address] [place] [address] Phone Care Team Providers Care Oracle Database Administrator Name Role Phone Ok Schuler Primary Care Provider [phone] Encounter Details Date Type Department Care Team (Late st Contact Info) Description 07/21/2022 Telephone [facility] [address] [place] [phone] Radha Elizondo MD Social History Tobacco Use [...] on filedocumented in this encounter Care Teams Oracle Database Administrator Relationship Specialty Start Date End Date Ok Schuler [address] [place] [address] PCP - General 09/14/20 documented as of this encounter
--- OUTSIDE RECORDS SUMMARY | 2024-11-19 13:34 | XMS_ITS | Encounter Summary ---
Author Organization [facility] Address [address] [place] [address] Phone Care Team Providers Care Senior Enlisted Advisor Name Role Phone Ok Schuler Primary Care Provider [phone] Encounter Details Date Type Department Care Team (Late st Contact Info) Description 07/14/2022 Telephone [facility] [address] [place] [phone] Kayla Mendieta Social History Tobacco Use Types [...] on filedocumented in this encounter Care Teams Senior Enlisted Advisor Relationship Specialty Start Date End Date Ok Schuler [address] [place] [id number] PCP - General 09/14/20 documented as of this encounter
--- OUTSIDE RECORDS SUMMARY | 2024-11-19 13:34 | XMS_ITS | Encounter Summary ---
Author Organization [facility], Address [address] [address] Phone Care Team Providers Care Accounting Clerks Supervisor Name Role Phone Ok Schuler Primary Care Provider [phone] Reason for Visit * Reason Comments Med Refill Encounter Details Date Type Department Care Team (Late st Contact Info) Description 02/09/2024 Refill [facility] [address] [place] [phone] Abimael Campo MD [address] [place] [phone] Social History Tobacco Use Types Packs/Day Years [...] on filedocumented in this encounter Care Teams Accounting Clerks Supervisor Relationship Specialty Start Date End Date Ok Schuler [address] [place] [phone] PCP - General 09/14/20 documented as of this encounter
--- OUTSIDE RECORDS SUMMARY | 2024-11-19 13:34 | XMS_ITS | Clinical Summary ---
Author Organization [facility] Address [address] [place] [address] Phone Care Team Providers Care Director Of Rehabilitation Name Role Phone Ok Barakat MD Primary Care Provider [phone] Allergies Active Allergy Reactions Criticality Noted Date [...] sleep apnea 10/08/2017 Overview (06/10/2024): Followed at [place] [facility], followed by Dr Musa Allen Gout 08/28/2017 Assessment & Plan (10/30/2024 3:35 PM EST): Continue allopurinol 100 mg daily. CKD (chronic kidney disease), stage II 7 CVA (cerebral vascular accident) 03/01/2017 Overview (06/10/2024): Neurology (06/16/17): Continue aspirin, 48 hour Holter results discussed which showed no A. fib/flutter. Advised to follow up with sleep medicine for evaluation of TONG. [facility] 01/2017 HTN (hypertension) 03/01/2017 Overview [...] PM EST Office Visit Internal Medicine - [address] [address] Ok Barakat MD Kidney transplant recipient (Primary Dx); Hypertension, unspecified type; Hyperlipidemia, unspecified hyperlipidemia type; Gout, unspecified cause, unspecified chronicity, unspecified site from Last 3 Months Immunizations Name Administration Dates Next Due Influenza, Unspecified 05/22/2024 JDCPhosphate SARS-CoV-2 COVID-19, mRNA, LNP-S, preservative free 06/13/2022,08/23/2021,01/17/2021,2020 [...] week fu* CVA (cerebral vascular accid ent) ([facility]/H[facility]) 03/01/2017 DX:CVA (cerebral vascular ac cident) ([facility]); COMMENT: Neurology (06/16/17): Continue aspirin, 48 hour Holter results discussed which showed no A. fib/flutter. Advised to follow up with sleep medicine for evaluation of TONG. [facility] 01/2017 CKD (chronic kidney disease) , stage II 04/14/2017 DX:CKD (chronic kidney disea se), stage II Mild obstructive sleep apnea 10/08/2017 DX: Mild obstructive sleep apnea; COMMENT: Followed at [place] [facility], followed by Dr Musa Allen [...] AM EDT Office Visit Internal Medicine - [address] [address] Ok Barakat MD [address] [place] [id number] Health Maintenance Due Date Last Done Comments [...] to direct LDL (07/16/2024 9:31 AM EST) [facility] Cholesterol 155 0 - 200 mg/dL LAB CHEMISTRY METHOD 07/16/2024 3:51 PM EST [facility] Triglycerides 113 0 - 150 mg/dL LAB CHEMISTRY METHOD 07/16/2024 3:51 PM EST [facility] HDL 48 >=40 mg/dL LAB CHEMISTRY METHOD 07/16/2024 3:51 PM EST [facility] LDL Calculated 84 0 - 100 mg/dL LAB CHEMISTRY METHOD 07/16/2024 3:51 PM EST [facility] VLDL Cholesterol Jacoby 22.6 mg/dL LAB CHEMISTRY METHOD 07/16/2024 3:51 PM EST [facility] Non HDL Chol. (LDL+VLDL) 107 <145 mg/dL LAB CHEMISTRY METHOD 07/16/2024 3:51 PM EST [facility] Chol/HDL Ratio 3.2 0.0 - 4.4 LAB CHEMISTRY METHOD 07/16/2024 3:51 PM EST [facility] Blood Venous blood specimen / Unknown Venipuncture / Unknown 07/16/2024 9:31 AM EST 07/16/2024 9:31 AM EST Ok Barakat MD LAB BLOOD ORDERABLES Lucía l Result [facility] [address] [place] [address], [place] [phone] * Annual BMP Blood Test (06/05/2024) [facility] Annual BMP Blood Test ABSTRACTED Historical Provider HEALTH MAINTENANCE Final Result * Colonoscopy (07/01/2019) [facility] Colonoscopy no interpretation , abstracted Anatomical Region Laterality Modality Other Historical Provider HEALTH MAINTENANCE Final Result * Hepatitis C Screening (05/02/2018) Hepatitis C Screening ABSTRACTED Historical Provider HEALTH MAINTENANCE Final Result from Last 3 Months or Most Recently Relevant to Health Maintenance Insurance [facility] Care Teams Director Of Rehabilitation Relationship Specialty Start Date End Date Ok Barakat MD [address] [place] [address] PCP - General Internal Medicine 02/06/17
== END 2024-11-19 11:47 | disposition home or self-care (01) ==
LOC: HO.HKAS 11:12
PROVIDERS: PCP Internal Medicine; Visit Provider Internal Medicine Nephrology
DX: D72.818 Other decreased white blood cell count (principal); I10 Essential (primary) hypertension; Z94.0 Kidney transplant status
CPT/HCPCS: 99214

== ENCOUNTER → 2024-11-19 11:12 | Outpatient (BNVA) | payer OTHER, SELFPAY | PROVIDERS: PCP Internal Medicine; Visit Provider Internal Medicine Nephrology | DX: I10 Essential (primary) hypertension (principal); D72.819 Decreased white blood cell count, unspecified; Z94.0 Kidney transplant status; Z86.73 Personal history of transient ischemic attack (TIA), and cerebral infarction without residual deficits | CPT/HCPCS: 99212 ==

== ENCOUNTER 2025-01-14 10:05 | Outpatient (REF) | payer OTHER, SELFPAY ==
--- OUTSIDE RECORDS SUMMARY | 2025-01-14 11:02 | XMS_ITS | Clinical Summary ---
Author Organization [facility] Address [address] [place] [address] Phone Care Team Providers Care Freight Representative Name Role Phone Ok Schuler Primary Care Provider [phone] Allergies Active Allergy Reactions Criticality Noted Date [...] capsule 3 024 Active epoetin salazar (Procrit) 75377 UNIT/ML injection INJECT 40,000 UNITS (1ML) SUBCUTANEOUSLY EVERY 7 DAYS 4 mL 5 024 Active Hospital, Clinic, or Other Facility Administered Medication Ordered Dose Route Frequency Start Date End Date Status Epoetin Salazar-epbx solution 30,000 UnitsIndications:Chronic kidney disease, not otherwise specified,Anemia in chronic kidney disease 17210 Units IJ Once 08/30/2023 Active Active Problems [...] Edema 11/17/2020 01/13/2022 Gout 11/17/2020 01/13/2022 Immunizations Immunization Administration Dates Next Due Influenza, Quadrivalent, Preservative [...] Years (1 of 2 - PCV) 1982 Colorectal Cancer Screening: Annual FOBT 2012 Colorectal Cancer Screening: Colonoscopy 2012 Colorectal Cancer Screening: Sigmoidoscopy 2012 Influenza Vaccine Completed 05/22/2024, 06/16/2020, 06/16/2020 Hepatitis B Vaccine Aged Out No longe r eligible based on patient's age to complete this topic Insurance [facility] Care Teams Freight Representative Relationship Specialty Start Date End Date Ok Schuler [address] [place] [address] PCP - General 09/14/20
--- OUTSIDE RECORDS SUMMARY | 2025-01-14 11:02 | XMS_ITS | Encounter Summary ---
Author Organization [facility], Address [address] [place] [address] Phone Care Team Providers Care Contracting Engineer Name Role Phone Ok Schuler Primary Care Provider Encounter Details Date Type Department Care Team (Late st Contact Info) Description 12/19/2023 Documentation Only [facility], [address] [place] [phone] [place], [place] [address] [place] [address] Social History Tobacco Use Types [...] on filedocumented in this encounter Care Teams Contracting Engineer Relationship Specialty Start Date End Date Ok Schuler [address] [place] [address] PCP - General 09/14/20 documented as of this encounter
--- OUTSIDE RECORDS SUMMARY | 2025-01-14 11:02 | XMS_ITS | Encounter Summary ---
Author Organization [facility], Address [address] [place] [address] Phone Care Team Providers Care Tariff Publishing Agent Name Role Phone Ok Schuler Primary Care Provider Encounter Details Date Type Department Care Team (Late st Contact Info) Description 01/12/2024 Documentation Only [facility], [address] [place] [phone] [place], [place] [address] [place] [phone] Social History Tobacco Use Types Packs/Day Years [...] on filedocumented in this encounter Care Teams Tariff Publishing Agent Relationship Specialty Start Date End Date Ok Schuler [address] [place] [address] PCP - General 09/14/20 documented as of this encounter
--- OUTSIDE RECORDS SUMMARY | 2025-01-14 11:02 | XMS_ITS | Encounter Summary ---
Author Organization [facility] Address [address] [place] [address] Phone Care Team Providers Care Relief Mate Name Role Phone Ok Schuler Primary Care Provider [phone] Encounter Details Date Type Department Care Team (Late st Contact Info) Description 07/14/2022 Telephone [facility] [address] [place] [phone] Kayla Mendieta Social History Tobacco Use Types [...] on filedocumented in this encounter Care Teams Relief Mate Relationship Specialty Start Date End Date Ok Schuler [address] [place] [address] PCP - General 09/14/20 documented as of this encounter
--- OUTSIDE RECORDS SUMMARY | 2025-01-14 11:02 | XMS_ITS | Encounter Summary ---
Author Organization [facility], Address [address] [address] Phone Care Team Providers Care Electric Melt Operator Name Role Phone Ok Schuler Primary Care Provider [phone] Reason for Visit * Reason Comments Med Refill Encounter Details Date Type Department Care Team (Late st Contact Info) Description 02/09/2024 Refill [facility] [address] [place] [phone] Abimael Campo MD [address] [place] [phone] Social History Tobacco Use Types Packs/Day Years [...] on filedocumented in this encounter Care Teams Electric Melt Operator Relationship Specialty Start Date End Date Ok Schuler [address] [place] [phone] PCP - General 09/14/20 documented as of this encounter
--- OUTSIDE RECORDS SUMMARY | 2025-01-14 11:02 | XMS_ITS | Clinical Summary ---
Author Organization [facility] Address [address] [place] [address] Care Team Providers Care Ppa Teacher Name Role Phone Pcp, No Primary Care Provider Unavailabl e Social History Tobacco Use Types Packs/Day Years Used Date Smoking Tobacco: Never Assessed Sex and Gender Information Value Date Recorded Sex Assigned at Male 08/20/2024 2:15 PM EST Legal Sex Male 1:01 PM EST Gender Identity Male 08/20/2024 2:15 [...] 2024 07/30/2023, 06/13/2022, 08/23/2021, Additional history exists Influenza Vaccine 04/04/2025 05/22/2024, , 06/13/2022, Additional history exists RSV Vaccine 60 years and older and Patients (1 - 1-dose 75+ series) 2038 Hepatitis B Vaccines Aged Out No long er eligible based on patient's age to complete this topic Insurance [facility] [place] [facility] Care Teams Ppa Teacher Relationship Specialty Start Date End Date Pcp, No PCP - General General Medicine 08/23/24
--- OUTSIDE RECORDS SUMMARY | 2025-01-14 11:02 | XMS_ITS | Encounter Summary ---
Author Organization [facility] Address [address] [place] [address] Phone Care Team Providers Care Factory Manager Name Role Phone Ok Schuler Primary Care Provider [phone] Encounter Details Date Type Department Care Team (Late st Contact Info) Description 03/04/2021 Orders Only [facility] [address] [place] [address] Radha Elizondo MD Stage 3b chronic kidney [...] EDT) Vitamin D, 25-Hydroxy 28.2 (20-50) NG/ML [facility] Comment: Testing performed or reported by [facility], a Service of [address] [address] Julia Juárez MD, Manager Technical Support Blood (Blood, Venous) 02/22/2021 9:37 AM EDT 02/22/2021 9:39 AM EDT Radha Elizondo MD LAB BLOOD ORDERABLES Final Resu lt Performing Organization Address [facility]/ZIP Co de Phone Number [facility] * (ABNORMAL) PTH, intact (02/22/2021 9:37 AM EDT) PTH, Intact 109(H) (15-65) PG/ML [facility] Comment: Testing performed or reported by [facility], a Service of [facility], [address] [place] [id number] Julia Juárez MD, Manager Technical Support Blood (Blood, Venous) 02/22/2021 9:37 AM EDT 02/22/2021 9:39 AM EDT Radha Elizondo MD LAB BLOOD ORDERABLES Final Resu lt Performing Organization Address City/[facility]/ZIP Co de Phone Number [facility] * Uric acid (02/22/2021 9:37 AM EDT) Uric Acid 5.8 (2.6-8.7) MG/DL [facility] Comment: Testing performed or reported by [facility], a Service of [address] [address] Julia Juárez MD, Manager Technical Support Blood (Blood, Venous) 02/22/2021 9:37 AM EDT 02/22/2021 9:39 AM EDT us Radha Elizondo MD LAB BLOOD ORDERABLES Final Resu lt [facility] * (ABNORMAL) Renal function panel (02/22/2021 9:37 AM EDT) Glucose 105(H) (70-99) MG/DL [facility] BUN 38(H) (6-20) MG/DL [facility] Creatinine 2.8(H) (0.7-1.2) MG/DL [facility] Sodium 143 (133-145) MMOL/L [facility] Potassium 4.1 (3.6-5.2) MMOL/L [facility] Chloride 104 (98-107) MMOL/L [facility] Bicarbonate (CO2) 28 (22-29) MMOL/L [facility] Anion Gap 11 (4-17) [facility] Albumin 4.1 (3.4-4.8) GM/DL [facility] Calcium 9.2 (8.6-10.5) MG/DL [facility] Phosphorus, Serum 2.9 (2.5-4.5) MG/DL [facility] Est GFR Non 24 ML/MIN/1.7 3 M2 [facility] Comment: Creatinine based estimated glomerular filtration rate (eGFR) is calculated using the Chronic Kidney Disease Epidemiology Collaboration (CKD-EPI). The CKD-EPI creatinine equation has not been validated in children (<18 years), women or in some racial or ethnic subgroups other than Caucasians and Americans. EST GFR 27 ML/MIN/1.7 3 M2 [facility] Comment: Creatinine based estimated glomerular filtration rate (eGFR) is calculated using the Chronic Kidney Disease Epidemiology Collaboration (CKD-EPI). The CKD-EPI creatinine equation has not been validated in children (<18 years), women or in some racial or ethnic subgroups other than Caucasians and Americans. Testing performed or reported by [facility], a Service of [facility], [address] [place] [id number] Julia Juárez MD, Manager Technical Support Blood (Blood, Venous) 02/22/2021 9:37 AM EDT 02/22/2021 9:39 AM EDT us Radha Elizondo MD LAB BLOOD ORDERABLES Final Resu lt [facility] documented in this encounter Visit Diagnoses Diagnosis Stage 3b chronic kidney disease (HCC) documented in this encounter Care Teams Factory Manager Relationship Specialty Start Date End Date Ok Schuler [address] [place] [phone] PCP - General 09/14/20 documented as of this encounter
--- OUTSIDE RECORDS SUMMARY | 2025-01-14 11:02 | XMS_ITS | Encounter Summary ---
Author Organization [facility] Address [address] [place] [address] Phone Care Team Providers Care Mill And Coal Transport Operator Name Role Phone Ok Schuler Primary Care Provider Encounter Details Date Type Department Care Team (Late st Contact Info) Description 07/21/2022 Telephone [facility] [address] [place] [phone] Radha Elizondo MD Social History Tobacco Use [...] on filedocumented in this encounter Care Teams Mill And Coal Transport Operator Relationship Specialty Start Date End Date Ok Schuler [address] [place] [phone] PCP - General 09/14/20 documented as of this encounter
[2025-01-14 18:06] LABS: MANUAL DIFF FLAG NO
[2025-01-14 18:21] LABS: Basophils Percent Auto 0.3 % (0-2); Eosinophils Absolute Auto 0.1 X10*3/uL (0.0-0.4); Eosinophils Percent Auto 1.6 % (0-4); Hematocrit 37.5 % (42.0-52.0); Hemoglobin 11.9 g/dl (14.0-18.0); Imm Gran Abs Auto 0.01 X10*3/uL (0.00-0.03); Imm Gran Pct Auto 0.3 % (0.0-0.4); Lymphocytes Absolute Auto 0.7 X10*3/uL (1.2-4.9); Lymphocytes Percent Auto 21.2 % (20-40); Mean Corpuscular HGB Conc 31.7 g/dl (31.0-36.0); Mean Corpuscular Hemoglobin 27.2 pg (27.0-33.0); Mean Corpuscular Volume 85.8 fL (80.0-98.0); Monocytes Absolute Auto 0.4 X10*3/uL (0.1-1.2); Monocytes Percent Auto 12.1 % (2-11); Neutrophils Percent Auto 64.5 % (45-73); Platelet Count 157 X10*3/uL (160-400); Red Blood Count 4.37 X10*6/uL (4.60-5.80); Red Cell Distribution Width 14.5 % (11.0-16.0); White Blood Count 3.1 X10*3/uL (4.8-10.8)
[2025-01-14 18:29] LABS: Alanine Aminotransferase 20 U/L (0-40); Anion Gap 14 (12-20); Aspartate Amino Transferase 21 U/L (5-37); Blood Urea Nitrogen 23 mg/dL (9-16); Calcium 9.2 mg/dL (8.4-10.2); Carbon Dioxide 30 mmol/L (22-29); Chloride 104 mmol/L (96-108); Estimated Glomerular Filt Rate 40; Magnesium 2.2 mg/dL (1.6-2.6); Phosphorus 3.4 mg/dL (2.7-4.5); Potassium 3.8 mmol/L (3.3-5.1); Sodium 144 mmol/L (135-145)
== END 2025-01-14 10:06 | disposition home or self-care (01) ==
LOC: HO.HKASLDS 10:05
PROVIDERS: Visit Provider Internal Medicine Nephrology
DX: I10 Essential (primary) hypertension (principal); Z94.0 Kidney transplant status
CPT/HCPCS: 36415; 80051; 82310; 82565; 83735; 84100; 84450; 84460; 84520; 85025

== ENCOUNTER 2025-01-21 10:50 | Outpatient (AMB) | payer OTHER, SELFPAY ==
[2025-01-21 10:54] VITALS: BP 136/82; PULSE 80; O2SAT 96; BMI 37.4
--- NOTE | 2025-01-21 10:54 | HO.NEPHOV_ITS ---
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 He was not on dialysis. Induction was done using IV methylprednisone and Thymoglobulin. Donor was CMV positive, EBV positive with a KDPI 82%. Patient was CMV positive, EBV positive with 0% PRA. He had 2 hour session of hemodialysis for hyperkalemia postoperatively. He had multiple admissions for GI bleed and anemia, gastric ulcers with no evidence of active bleeding. He had delayed graft function. He has been followed up by Urology. He underwent biopsy on 01/12/2024 which showed mild tubulitis T1 with minimal interstitial inflammation less than 10% , global sclerosis of 1/20 normal I the the mild to moderate diffuse interstitial fibrosis involving 20-30% of cortical area. His BK virus PCR has been negative. His DSA was negative. His Doppler showed no renal artery stenosis. He denies any chest pain, shortness of breath, proximal nocturnal dyspnea, orthopnea, pedal edema, urinary symptoms, fever. He is compliant with his medications. He maintains good hydration. His urine output is good. He avoids qxzo-yhi-bsuasoa medications [facility] Medical History ESRD (end stage renal disease) CVA (cerebral vascular accident) TONG (obstructive sleep apnea) Gout Hypertension Surgical History Kidney replaced by transplant Social History Alcohol intake: never Patient Tobacco Use Status: Never used Tobacco Review of Systems Const All systems reviewed & are unremarkable except as noted in HPI and below Physical Exam Vital Signs: Last Vital Signs Pulse 80 01/21/25 10:54 BP 136/82 01/21/25 10:54 Pulse Ox 96 01/21/25 10:54 Oxygen Delivery Method Room Air 01/21/25 10:54 BMI result Body Mass Index 37.4 Const General: comfortable and no acute distress Orientation/consciousness: patient oriented x3 HEENT Head: Yes normocephalic Mouth: Normal oral and palatal mucosa present Eyes EOM: EOMs intact bilaterally Neck Neck: Yes supple Resp Auscultation: clear to auscultation bilaterally Cardio Jugular venous distension: no JVD Rate: regular rate GI Palpation (GI): Soft to palpation Auscultation: normal bowel sounds General: Yes no CVA tenderness Back/Spine/Pelvis Back: no CVA tenderness Skin General skin exam: no rashes or lesions noted Neuro General: patient oriented x3 and moves all extremities Extrem General: Yes no pedal edema Results Reviewed Nephrology Results: Hgb 11.9 g/dl (14.0-18.0) L 01/14/25 WBC 3.1 X10*3/uL (4.8-10.8) L 01/14/25 Plt Count 157 X10*3/uL (160-400) L 01/14/25 Sodium 144 mmol/L (135-145) 01/14/25 Potassium 3.8 mmol/L (3.3-5.1) 01/14/25 Chloride 104 mmol/L (96-108) 01/14/25 Carbon Dioxide 30 mmol/L (22-29) H 01/14/25 BUN 23 mg/dL (9-16) H 01/14/25 Creatinine 1.73 mg/dL (0.5-1.4) H 01/14/25 Calcium 9.2 mg/dL (8.4-10.2) 01/14/25 Phosphorus 3.4 mg/dL (2.7-4.5) 01/14/25 Assessment & Plan Assessment & Plan (1) Renal transplant recipient: Code(s): Z94.0 - Kidney transplant status Category: Surgical (2) Hypertension: Code(s): I10 - Essential (primary) hypertension Category: Medical Qualifiers: Hypertension type: primary hypertension Qualified Code(s): I10 - Essential (primary) hypertension (3) Leucopenia: Code(s): D72.819 - Decreased white blood cell count, unspecified Category: Medical Qualifiers: Leukopenia type: other Qualified Code(s): D72.818 - Other decreased white blood cell count Margareth Ricardo had a preemptive donor renal transplant 11 November 2023. He has H/O delayed graft function. He needed 1 hemodialysis treatment postoperatively. His DSA was negative. His urinalysis was bland. His serum creatinine has been stable. His urine protein creatinine ratio was normal. His Prospera was down to 0.13 on 04 of February. His transplant ultrasound in December showed mild hydronephrosis post stent removal. Allograft biopsy was done on 01/12/2024 which did not show any rejection. He has been on belatacept .( upcoming dose Sep 15 2024; Due May 26). 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 ( last dose of Belatecept was 06/23/2024) . He had finished a Mycelex but is on Bactrim and Valcyte. His BK virus PCR has been negative. His EBV and CMV status for donor and recipient were positive. He is on Coreg which has been keeping his blood pressure at goal. His calcium, phosphorus and magnesium has been at goal. He is not on any oral sodium bicarbonate. He had a bone marrow biopsy & was WNL as per patient. He is on myfortic to 360 mg bid . I did not make any other medication changes today. Needs to lose weight. Follow-up lab work ordered. Follow-up appointment given Orders: Orders Phosphorus 2 Months D72.818 - Other decreased white blood cell count, I10 - Essential (primary) hypertension, Z94.0 - Kidney transplant status Creatinine 2 Months D72.818 - Other decreased white blood cell count, I10 - Essential (primary) hypertension, Z94.0 - Kidney transplant status Calcium 2 Months D72.818 - Other decreased white blood cell count, I10 - Essential (primary) hypertension, Z94.0 - Kidney transplant status Vitamin D 25-OH Total 2 Months D72.818 - Other decreased white blood cell count, I10 - Essential (primary) hypertension, Z94.0 - Kidney transplant status Complete Blood Count Auto Diff 2 Months D72.818 - Other decreased white blood cell count, I10 - Essential (primary) hypertension, Z94.0 - Kidney transplant status Magnesium 2 Months D72.818 - Other decreased white blood cell count, I10 - Essential (primary) hypertension, Z94.0 - Kidney transplant status Blood Urea Nitrogen 2 Months D72.818 - Other decreased white blood cell count, I10 - Essential (primary) hypertension, Z94.0 - Kidney transplant status Electrolytes 2 Months D72.818 - Other decreased white blood cell count, I10 - Essential (primary) hypertension, Z94.0 - Kidney transplant status Parathyroid Hormone Intact 2 Months D72.818 - Other decreased white blood cell count, I10 - Essential (primary) hypertension, Z94.0 - Kidney transplant status Medications: Discontinued potassium chloride ER Discontinued Reason: Doctor's Order 10 mEq PO DAILY 10 tabs 0RF loratadine Discontinued Reason: Doctor's Order 10 mg PO DAILY 30 tabs 3RF Coding Level of Care Code Est Pt Level 4 (84701) Diagnoses Renal transplant recipient Z94.0 Primary hypertension I10 Hypertension type: primary hypertension Other decreased white blood cell (WBC) count D72.818 Leukopenia type: other
--- OUTSIDE RECORDS SUMMARY | 2025-01-21 12:04 | XMS_ITS | Clinical Summary ---
Author Organization [facility] Address [address] [place] [address] Phone Care Team Providers Care Teacher Dancing Name Role Phone Ok Schuler Primary Care Provider [phone] Allergies Active Allergy Reactions Criticality Noted Date [...] capsule 3 024 Active epoetin salazar (Procrit) 50497 UNIT/ML injection INJECT 40,000 UNITS (1ML) SUBCUTANEOUSLY EVERY 7 DAYS 4 mL 5 024 Active Hospital, Clinic, or Other Facility Administered Medication Ordered Dose Route Frequency Start Date End Date Status Epoetin Salazar-epbx solution 30,000 UnitsIndications:Chronic kidney disease, not otherwise specified,Anemia in chronic kidney disease 57905 Units IJ Once 08/30/2023 Active Active Problems [...] patient's age to complete this topic Insurance [facility] Care Teams Teacher Dancing Relationship Specialty Start Date End Date Ok Schuler [address] [place] [id number] PCP - General 09/14/20
--- OUTSIDE RECORDS SUMMARY | 2025-01-21 12:04 | XMS_ITS | Encounter Summary ---
Author Organization [facility] Address [address] [place] [address] Phone Care Team Providers Care Immigration Officer Name Role Phone Ok Schuler Primary Care Provider [phone] Encounter Details Date Type Department Care Team (Late st Contact Info) Description 03/04/2021 Orders Only [facility] [address] [place] [address] Radha Elizondo MD Stage 3b chronic kidney [...] EDT) Vitamin D, 25-Hydroxy 28.2 (20-50) NG/ML [facility] Comment: Testing performed or reported by [facility], a Service of [facility], [address] [place] [address] Julia Juárez MD, Cdl Team Truck Driver Blood specimen (specimen) Venous blood / Unknown 02/22/2021 9:37 AM EDT 02/22/2021 9:39 AM EDT Radha Elizondo MD LAB BLOOD ORDERABLES Final Resu lt Performing Organization Address [facility] Co de Phone Number [facility] * (ABNORMAL) PTH, intact (02/22/2021 9:37 AM EDT) Pathologist [facility] PTH, Intact 109(H) (15-65) PG/ML [facility] Comment: Testing performed or reported by [facility], a Service of [facility], [address] [place] [address] Julia Juárez MD, Cdl Team Truck Driver Blood specimen (specimen) Venous blood / Unknown 02/22/2021 9:37 AM EDT 02/22/2021 9:39 AM EDT Radha Elizondo MD LAB BLOOD ORDERABLES Final Resu lt Performing Organization Address City/[facility]/ZIP Co de Phone Number [facility] * Uric acid (02/22/2021 9:37 AM EDT) Pathologist [facility] Uric Acid 5.8 (2.6-8.7) MG/DL [facility] Comment: Testing performed or reported by [facility] [place], a Service of [address] [address] Julia Juárez MD, Cdl Team Truck Driver Blood specimen (specimen) Venous blood / Unknown 02/22/2021 9:37 AM EDT 02/22/2021 9:39 AM EDT us Radha Elizondo MD LAB BLOOD ORDERABLES Final Resu lt [facility] * (ABNORMAL) Renal function panel (02/22/2021 9:37 AM EDT) Glucose 105(H) (70-99) MG/DL [facility] BUN 38(H) (6-20) MG/DL [facility] Creatinine 2.8(H) (0.7-1.2) MG/DL [facility] Sodium 143 (133-145) MMOL/L [facility] Potassium 4.1 (3.6-5.2) MMOL/L [facility] Chloride 104 (98-107) MMOL/L [facility] Bicarbonate (CO2) 28 (22-29) MMOL/L [facility] Anion Gap 11 (4-17) [facility] Albumin 4.1 (3.4-4.8) GM/DL [facility] Calcium 9.2 (8.6-10.5) MG/DL [facility] Phosphorus, Serum 2.9 (2.5-4.5) MG/DL [facility] Est GFR Non 24 ML/MIN/1.7 3 M2 [facility] Comment: Creatinine based estimated glomerular filtration rate (eGFR) is calculated using the Chronic Kidney Disease Epidemiology Collaboration (CKD-EPI). The CKD-EPI creatinine equation has not been validated in children (<18 years), women or in some racial or ethnic subgroups other than Caucasians and Americans. EST GFR 27 ML/MIN/1.7 3 M2 [facility] Comment: Creatinine based estimated glomerular filtration rate (eGFR) is calculated using the Chronic Kidney Disease Epidemiology Collaboration (CKD-EPI). The CKD-EPI creatinine equation has not been validated in children (<18 years), women or in some racial or ethnic subgroups other than Caucasians and Americans. Testing performed or reported by [facility], a Service of [facility], [address] [place] [address] Julia Juárez MD, Cdl Team Truck Driver Blood specimen (specimen) Venous blood / Unknown 02/22/2021 9:37 AM EDT 02/22/2021 9:39 AM EDT us Radha Elizondo MD LAB BLOOD ORDERABLES Final Resu lt [facility] documented in this encounter Visit Diagnoses Diagnosis Stage 3b chronic kidney disease (HCC) documented in this encounter Care Teams Immigration Officer Relationship Specialty Start Date End Date Ok Schuler [address] [place] [id number] PCP - General 09/14/20 documented as of this encounter
--- OUTSIDE RECORDS SUMMARY | 2025-01-21 12:04 | XMS_ITS | Clinical Summary ---
Author Organization [facility] Address [address] [place] [address] Care Team Providers Care Painter And Decorator Name Role Phone Pcp, No Primary Care [...] patient's age to complete this topic Insurance [facility] [employer] Care Teams Painter And Decorator Relationship Specialty Start Date End Date Pcp, No PCP - General General Medicine 08/23/24
--- OUTSIDE RECORDS SUMMARY | 2025-01-21 12:04 | XMS_ITS | Encounter Summary ---
Author Organization [facility], Address [address] [place] [address] Phone Care Team Providers Care Java Engineer Name Role Phone Ok Schuler Primary Care Provider Encounter Details Date Type Department Care Team (Late st Contact Info) Description 12/19/2023 Documentation Only [facility], [address] [place] [phone] [place] [address] [place] [address] Social History Tobacco Use Types [...] on filedocumented in this encounter Care Teams Java Engineer Relationship Specialty Start Date End Date Ok Schuler [address] [place] [id number] PCP - General 09/14/20 documented as of this encounter
--- OUTSIDE RECORDS SUMMARY | 2025-01-21 12:04 | XMS_ITS | Encounter Summary ---
Author Organization [facility], Address [address] [place] [address] Phone Care Team Providers Care Tobacco Grower Name Role Phone Ok Schuler Primary Care Provider Encounter Details Date Type Department Care Team (Late st Contact Info) Description 01/12/2024 Documentation Only [facility], [address] [place] [phone] [place] [address] [place] [phone] Social History Tobacco Use Types Packs/Day Years [...] on filedocumented in this encounter Care Teams Tobacco Grower Relationship Specialty Start Date End Date Ok Schuler [address] [place] [address] PCP - General 09/14/20 documented as of this encounter
--- OUTSIDE RECORDS SUMMARY | 2025-01-21 12:05 | XMS_ITS | Clinical Summary ---
Author Organization [address] [place] [address] Address [address] [place] [address] Phone Care Team Providers Care Certified Health Education Specialist Name Role Phone Ok Barakat MD Primary Care Provider [phone] Allergies Active Allergy Reactions Criticality Noted Date [...] mouth 1 (one) time each day. Active sulfamethoxazo le-trimethopri m (BACTRIM,SEPTR A) 400-80 mg per tablet Take 1 tablet by mouth 2 (two) times a day. Active tacrolimus (Astagraf XL) 1 mg capsule,extend ed release 24hr Take by mouth. Activ e mycophenolate (MYFORTIC) 180 mg EC tablet Take by mouth 2 times daily. Active epoetin emma (Procrit) 40,000 unit/mL injection INJECT 40,000 UNITS (1ML) SUBCUTANEOUSLY EVERY 7 DAYS 4 Active oxyBUTYnin XL (DITROPAN-XL) 10 mg 24 [...] (one) time each day. 90 capsule 1 4 Active torsemide (DEMADEX) 20 mg tablet Take 1 tablet (20 mg total) by mouth. 4 Active carvediloL (Coreg) 25 mg tablet Take 1 tablet (25 mg total) by mouth 2 (two) times a day with meals. 90 tablet 1 5 Active pantoprazole (PROTONIX) 40 mg EC tablet Take 1 tablet (40 mg total) by mouth 2 (two) times a day. 90 tablet 1 5 Active aspirin 81 mg EC tablet Take 1 tablet (81 mg total) by mouth 1 (one) time each day. 90 tablet 1 5 Active atorvastatin (LIPITOR) 10 mg tablet TAKE 1 TABLET BY MOUTH EVERY DAY 90 tablet 1 5 Active Active Problems Problem Noted Date Diagnosed [...] sleep apnea 10/08/2017 Overview (06/10/2024): Followed at [place] [facility], followed by Dr Musa Allen Gout 08/28/2017 Assessment & Plan (10/30/2024 3:35 PM EST): Continue allopurinol 100 mg daily. CKD (chronic kidney disease), stage II 7 CVA (cerebral vascular accident) ([facility]/HCC V24, C MS/[facility] V28) 03/01/2017 Overview (06/10/2024): Neurology (06/16/17): Continue aspirin, 48 hour Holter results discussed which showed no A. fib/flutter. Advised to follow up with sleep medicine for evaluation of TONG. [facility] 01/2017 HTN (hypertension) 03/01/2017 Overview (06/10/2024): [...] PM EST Office Visit Internal Medicine - [address] [address] Ok Barakat MD Kidney transplant recipient (Primary Dx); Hypertension, unspecified type; Hyperlipidemia, unspecified hyperlipidemia type; Gout, unspecified cause, unspecified chronicity, unspecified site from Last 3 Months Immunizations Name Administration Dates Next Due Influenza, Unspecified 05/22/2024 PurePredictive SARS-CoV-2 COVID-19, mRNA, LNP-S, preservative free 06/13/2022,08/23/2021,01/17/2021,2020 [...] week fu* CVA (cerebral vascular accid ent) ([facility]/HCC V24, CMS/HCC V28) 03/01/2017 DX:CVA (cerebral vascular a ccident) ([facility]); COMMENT: Neurology (06/16/17): Continue aspirin, 48 hour Holter results discussed which showed no A. fib/flutter. Advised to follow up with sleep medicine for evaluation of TONG. [facility] 01/2017 CKD (chronic kidney disease) , stage II 04/14/2017 DX:CKD (chronic kidney disea se), stage II Mild obstructive sleep apnea 10/08/2017 DX: Mild obstructive sleep apnea; COMMENT: Followed at [place] [facility], followed by Dr Musa Allen Duodenal [...] AM EDT Office Visit Internal Medicine - [address] [address] Ok Barakat MD [address] [place] [address] Health Maintenance Due Date Last Done Comments Pneumococcal Vaccine: 50+ Years (1 of 2 - PCV) 1982 Pneumococcal Vaccine: Pediatrics (0 to 5 Years) and At-Risk Patients (6 to 64 Years) (1 of 2 - PCV) 1982 Zoster Vaccines (1 of 2) 1982 HIV Screening 08/13/2022 RSV Immunization Adult Patients (1 - Risk 60-74 years 1-dose series) 2023 COVID-19 Vaccine (7 - Pfizer risk season) 2024 05/22/2024, 07/30/2023, 06/13/2022, Additional history exists Hypertension/CHF/CAD Annual BMP Blood Test 06/05/2025 06/05/2024, 06/05/2024 Depression Screening 10/29/2025 10/29/2024 Social Influencers of Health Screening 10/29/2025 10/29/2024 DTaP,Tdap,and Td Vaccines (4 - Td or Tdap) 05/02/2028 05/02/2018, 12/21/2012, 09/06/2002 Colorectal Cancer Screening: Colonoscopy 07/01/2029 07/01/2019 Cholesterol Screening (Lipid Panel) 07/16/2029 07/16/2024, 06/05/2024, 06/05/2024 Hepatitis C Screening Completed 05/02/2018 Influenza Vaccine Completed 05/22/2024, , 06/13/2022, Additional [...] age to complete this topic Meningococcal B Vaccine Aged Out No l onger eligible based on patient's age to complete [...] to direct LDL (07/16/2024 9:31 AM EST) Cholesterol 155 0 - 200 mg/dL LAB CHEMISTRY METHOD 07/16/2024 3:51 PM EST [facility] Triglycerides 113 0 - 150 mg/dL LAB CHEMISTRY METHOD 07/16/2024 3:51 PM [facility] HDL 48 >=40 mg/dL LAB CHEMISTRY METHOD 07/16/2024 3:51 PM [facility] LDL Calculated 84 0 - 100 mg/dL LAB CHEMISTRY METHOD 07/16/2024 3:51 PM EST [facility] VLDL Cholesterol Jacoby 22.6 mg/dL LAB CHEMISTRY METHOD 07/16/2024 3:51 PM [facility] Non HDL Chol. (LDL+VLDL) 107 <145 mg/dL LAB CHEMISTRY METHOD 07/16/2024 3:51 PM [facility] Chol/HDL Ratio 3.2 0.0 - 4.4 LAB CHEMISTRY METHOD 07/16/2024 3:51 PM EST [facility] Blood Venous blood specimen / Unknown Venipuncture / Unknown 07/16/2024 9:31 AM EST 07/16/2024 9:31 AM EST Ok Barakat MD LAB BLOOD ORDERABLES Lucía l Result [facility] [address] [place] [address], * Annual BMP Blood Test (06/05/2024) [facility] Annual BMP Blood Test ABSTRACTED Historical Provider HEALTH MAINTENANCE Final Result * Colonoscopy (07/01/2019) [facility] Colonoscopy no interpretation , abstracted Anatomical Region Laterality Modality Other Historical Provider HEALTH MAINTENANCE Final Result * Hepatitis C Screening (05/02/2018) [facility] Hepatitis C Screening ABSTRACTED Historical Provider HEALTH MAINTENANCE Final Result from Last 3 Months or Most Recently Relevant to Health Maintenance Insurance [facility] Care Teams Certified Health Education Specialist Relationship Specialty Start Date End Date Ok Barakat MD [address] [place] [address] PCP - General Internal Medicine 02/06/17
--- OUTSIDE RECORDS SUMMARY | 2025-01-21 12:05 | XMS_ITS | Encounter Summary ---
Author Organization [facility] Address [address] [place] [address] Phone Care Team Providers Care Meat Butcher Name Role Phone Ok Schuler Primary Care Provider [phone] Encounter Details Date Type Department Care Team (Late st Contact Info) Description 07/14/2022 Telephone [facility] [address] [place] [phone] Kayla Mendieta Social History Tobacco Use Types [...] on filedocumented in this encounter Care Teams Meat Butcher Relationship Specialty Start Date End Date Ok Schuler [address] [place] [phone] PCP - General 09/14/20 documented as of this encounter
--- OUTSIDE RECORDS SUMMARY | 2025-01-21 12:05 | XMS_ITS | Encounter Summary ---
Author Organization [facility] Address [address] [facility] [address] [place] [address] Phone Care Team Providers Care Acid Polymerization Operator Name Role Phone Ok Schuler Primary Care Provider [phone] Encounter Details Date Type Department Care Team (Late st Contact Info) Description 07/21/2022 Telephone [facility] [address] [facility] [address] [place] [phone] Radha Elizondo MD Social History Tobacco Use [...] on filedocumented in this encounter Care Teams Acid Polymerization Operator Relationship Specialty Start Date End Date Ok Schuler [address] [place] [phone] PCP - General 09/14/20 documented as of this encounter
--- OUTSIDE RECORDS SUMMARY | 2025-01-21 12:05 | XMS_ITS | Encounter Summary ---
Author Organization [facility], Address [address] [address] Phone Care Team Providers Care Transmission Line Engineer Name Role Phone Ok Schuler Primary Care Provider [phone] Reason for Visit * Reason Comments Med Refill Encounter Details Date Type Department Care Team (Late st Contact Info) Description 02/09/2024 Refill [facility] [address] [place] [phone] Abimael Campo MD [address] [place] [phone] Social History Tobacco Use Types Packs/Day Years [...] on filedocumented in this encounter Care Teams Transmission Line Engineer Relationship Specialty Start Date End Date Ok Schuler [address] [place] [phone] PCP - General 09/14/20 documented as of this encounter
== END 2025-01-21 11:15 | disposition home or self-care (01) ==
LOC: HO.HKAS 10:51
PROVIDERS: PCP Internal Medicine; Visit Provider Internal Medicine Nephrology
DX: Z94.0 Kidney transplant status (principal); I10 Essential (primary) hypertension; D72.818 Other decreased white blood cell count
CPT/HCPCS: 99214

== ENCOUNTER → 2025-01-21 10:50 | Outpatient (BNVA) | payer OTHER, SELFPAY | PROVIDERS: PCP Internal Medicine; Visit Provider Internal Medicine Nephrology | DX: I10 Essential (primary) hypertension (principal); D72.818 Other decreased white blood cell count; Z94.0 Kidney transplant status | CPT/HCPCS: 99212 ==

== ENCOUNTER 2025-03-18 08:14 | Outpatient (REF) | payer OTHER, SELFPAY ==
--- OUTSIDE RECORDS SUMMARY | 2025-03-18 08:19 | XMS_ITS | Clinical Summary ---
Author Organization [facility] Address [address] [place] [address] Care Team Providers Care Mercury Cell Cleaner Name Role Phone Pcp, No Primary Care [...] patient's age to complete this topic Insurance [facility] Care Teams Mercury Cell Cleaner Relationship Specialty Start Date End Date Pcp, No PCP - General General Medicine 08/23/24
--- OUTSIDE RECORDS SUMMARY | 2025-03-18 08:19 | XMS_ITS | Clinical Summary ---
Author Organization [facility] Address [address] [place] [address] Phone Care Team Providers Care Trim Setter Helper Name Role Phone Ok Barakat MD Primary Care Provider [phone] Allergies Active Allergy Reactions Criticality Noted Date Comments Fosinopril 03/01/2017 Nifedipine 03/01/2017 Medications UNABLE TO FIND CPAP Historical (HISTORICAL CPAP) Sig - Route: Inhale into the lungs. - Inhalation Active rOPINIRole (REQUIP) [...] time each day. Active sulfamethoxaz ole-trimethop rim (BACTRIM,MAY RA) 400-80 mg per tablet Take 1 tablet by mouth 2 (two) times a day. Active tacrolimus (Astagraf XL) 1 mg capsule,exten ded release 24hr Take by mouth. Activ e mycophenolate (MYFORTIC) 180 mg EC tablet Take by mouth 2 times daily. Active oxyBUTYnin XL (DITROPAN-XL) 10 mg 24 [...] day. 90 tablet 1 10/30/19 25 Active atorvastatin (LIPITOR) 10 mg tablet TAKE 1 TABLET BY MOUTH EVERY DAY 90 tablet 1 12/03/19 25 Active epoetin emma (Procrit) 40,000 unit/mL injection INJECT 40,000 UNITS (1ML) SUBCUTANEOUSLY EVERY 7 DAYS 01/30/20 24 2024 Discontinued Active Problems Problem Noted Date Diagnosed Date HLD (hyperlipidemia) 06/10/2024 Assessment & Plan (03/10/2025 10:23 AM EDT): Follow low-cholesterol diet. Continue atorvastatin. Orders: Lipid panel with reflex to direct LDL; Future Assessment & Plan (10/30/2024 3:35 PM EST): Under control now. Continue atorvastatin. Duodenal ulcer 06/10/2024 Kidney transplant recipient 12/29/2023 Overview (06/10/2024): 11/11/2023 Assessment & Plan (03/10/2025 10:23 AM EDT): He is scheduled to see his nephrology team already. Up-to-date with follow-up. Assessment & Plan (10/30/2024 3:35 PM EST): He is being monitored by nephrology closely. He is up-to-date with his lab work with nephrology. Mild obstructive sleep apnea 10/08/2017 Overview (06/10/2024): Followed at [place] [facility] at [facility], followed by Dr Musa Allen Gout 08/28/2017 Assessment & Plan (03/10/2025 10:23 AM EDT): Stable. Continue allopurinol. Assessment & Plan (10/30/2024 3:35 PM EST): Continue allopurinol 100 mg daily. CKD (chronic kidney disease), stage II 7 CVA (cerebral vascular accident) (CMS/HCC V24, C MS/HCC V28) 03/01/2017 Overview (06/10/2024): Neurology (06/16/17): Continue aspirin, 48 hour Holter results discussed which showed no A. fib/flutter. Advised to follow up with sleep medicine for evaluation of TONG. [facility] 01/2017 HTN (hypertension) 03/01/2017 Overview (06/10/2024): [...] Follow-up in one month Assessment & Plan (03/10/2025 10:23 AM EDT): Blood pressure is okay today. Follow low-sodium diet. Continue current Rumer of carvedilol, torsemide. He states he is already scheduled to have his lab work done with nephrology this month to monitor his kidney function and electrolytes. Assessment & Plan (10/30/2024 3:35 PM EST): Blood pressure is okay. He will follow low-sodium diet. Continue regimen of carvedilol and torsemide. Encounters Date Type Department Care Team Description 03/10/2025 9:45 AM EDT Office Visit Internal Medicine - [address] [address] Ok Barakat MD Hypertension, unspecified type (Primary Dx); Hyperlipidemia, unspecified hyperlipidemia type; Kidney transplant recipient; Screening for prostate cancer; Gout, unspecified cause, unspecified chronicity, unspecified site; Screening for diabetes mellitus from Last 3 Months Immunizations Name Administration Dates Next Due Influenza, Unspecified 05/22/2024 Pfizer SARS-CoV-2 COVID-19, mRNA, LNP-S, preservative free 06/13/2022,08/23/2021,01/17/2021,2020 [...] week fu* CVA (cerebral vascular accid ent) ([facility] V24, [facility] V28) 03/01/2017 DX:CVA (cerebral vascular a ccident) ([facility]); COMMENT: Neurology (06/16/17): Continue aspirin, 48 hour Holter results discussed which showed no A. fib/flutter. Advised to follow up with sleep medicine for evaluation of TONG. [facility] 01/2017 CKD (chronic kidney disease) , stage II 04/14/2017 DX:CKD (chronic kidney disea se), stage II Mild obstructive sleep apnea 10/08/2017 DX: Mild obstructive sleep apnea; COMMENT: Followed at [place] [facility] at [facility], followed by Dr Musa Allen Duodenal [...] Sign Reading Time Taken Comments Blood Pressure 134/80 03/10/2025 9:44 AM EDT aut o cuff Pulse 72 03/10/2025 9:44 AM EDT auto cuff Temperature - - Respiratory Rate - - Oxygen Saturation 98% 07/16/2024 8:43 AM EST Inhaled Oxygen Concentration - - Weight 106 kg (233 lb 12.8 oz) 03/10/2025 9:44 A M EDT Height 175.3 cm (5' 9 ) 10/30/2024 2:49 PM EST Body Mass Index 34.53 10/30/2024 2:49 PM EST Plan of Treatment Upcoming Encounters Date Type Department Care Team (Late st Contact Info) Description 09/10/2025 8:30 AM EST Office Visit Internal Medicine - [facility] [address] [place], [place] [phone] Balbina Shelton, SUPERVISOR [employer] [address] [place] [address] Health Maintenance Due Date Last Done Comments Pneumococcal Vaccine: 50+ Years (1 of 2 - PCV) 1982 Zoster Vaccines (1 of 2) 1982 HIV Screening 08/13/2022 RSV Immunization Adult Patients (1 - Risk 60-74 years 1-dose series) 2023 COVID-19 Vaccine (7 - Pfizer risk 2023- season) 2024 05/22/2024, 07/30/2023, 06/13/2022, Additional history exists Influenza Vaccine (#1) 2025 , 06/18/2023, 06/13/2022, Additional history exists Hypertension/CHF/CAD Annual BMP Blood Test 06/05/2025 06/05/2024, 06/05/2024 Depression Screening 10/29/2025 10/29/2024 Social Influencers of Health Screening 10/29/2025 10/29/2024 DTaP,Tdap,and Td Vaccines (4 - Td or Tdap) 05/02/2028 05/02/2018, 12/21/2012, 09/06/2002 Colorectal Cancer Screening: Colonoscopy 07/01/2029 07/01/2019 Cholesterol Screening (Lipid Panel) 07/16/2029 07/16/2024, 06/05/2024, 06/05/2024 Hepatitis C Screening Completed 05/02/2018 HIB Vaccines Aged Out No longer eligi [...] mg/dL LAB CHEMISTRY METHOD 07/16/2024 3:51 PM [facility] Triglycerides 113 0 - 150 mg/dL LAB CHEMISTRY METHOD 07/16/2024 3:51 PM [facility] HDL 48 >=40 mg/dL LAB CHEMISTRY METHOD 07/16/2024 3:51 PM [facility] LDL Calculated 84 0 - 100 mg/dL LAB CHEMISTRY METHOD 07/16/2024 3:51 PM [facility] VLDL Cholesterol Jacoby 22.6 mg/dL LAB CHEMISTRY METHOD 07/16/2024 3:51 PM [facility] Non HDL Chol. (LDL+VLDL) 107 <145 mg/dL LAB CHEMISTRY METHOD 07/16/2024 3:51 PM [facility] Chol/HDL Ratio 3.2 0.0 - 4.4 LAB CHEMISTRY METHOD 07/16/2024 3:51 PM [facility] Blood Venous blood specimen / Unknown Venipuncture / Unknown 07/16/2024 9:31 AM EST 07/16/2024 9:31 AM EST Ok Barakat MD LAB BLOOD ORDERABLES Lucía l Result [facility] [address] [place] [address], * Annual BMP Blood Test (06/05/2024) Annual BMP Blood Test ABSTRACTED Historical Provider HEALTH MAINTENANCE Final Result * Colonoscopy (07/01/2019) Colonoscopy no interpretation , abstracted Anatomical Region Laterality Modality Other Historical Provider HEALTH MAINTENANCE Final Result * Hepatitis C Screening (05/02/2018) Pathologist Count includes the [facility] Hepatitis C Screening ABSTRACTED Historical Provider HEALTH MAINTENANCE Final Result from Last 3 Months or Most Recently Relevant to Health Maintenance Insurance [facility] [employer] Care Teams Trim Setter Helper Relationship Specialty Start Date End Date Ok Barakat MD [address] [place] [id number] PCP - General Internal Medicine 02/06/17
--- OUTSIDE RECORDS SUMMARY | 2025-03-18 08:19 | XMS_ITS | Clinical Summary ---
Author Organization [facility] Address [address] [place] [address] Phone Care Team Providers Care Cloth Framer Name Role Phone Ok Schuler Primary Care Provider [phone] Allergies Active Allergy Reactions Criticality Noted Date [...] capsule 3 024 Active epoetin salazar (Procrit) 05471 UNIT/ML injection INJECT 40,000 UNITS (1ML) SUBCUTANEOUSLY EVERY 7 DAYS 4 mL 5 024 Active Hospital, Clinic, or Other Facility Administered Medication Ordered Dose Route Frequency Start Date End Date Status Epoetin Salazar-epbx solution 30,000 UnitsIndications:Chronic kidney disease, not otherwise specified,Anemia in chronic kidney disease 29752 Units IJ Once 08/30/2023 Active Active Problems [...] Colorectal Cancer Screening: Sigmoidoscopy 2012 Influenza Vaccine (#1) 2025 4, 06/16/2020, 06/16/2020 Hepatitis B Vaccine Aged Out No longe r eligible based on patient's age to complete this topic [place] [id number] Care Teams Cloth Framer Relationship Specialty Start Date End Date Ok Schuler [address] [place] [address] PCP - General 09/14/20
--- OUTSIDE RECORDS SUMMARY | 2025-03-18 08:19 | XMS_ITS ---
Author Name [facility] Organization Unknown Problems Problem Status Onset Date Problem Type Date of Resoluti on Source Complication of transplanted kidney, unspecified complication active [facility] En[facility] Encounter Type Encounter Reason Primary Diagnosis Location Date Ambulatory Unspecified complication of kidney transplant Unspecified complication of kidney transplant [facility] 08/21/2024 Ambulatory Kidney transplant status Kidney transplant status [facility] 08/05/2024 Care Team Organization Name Specialty Phone Email Start Date End Da te [facility] Primary Care 09/18/2024 [facility] 08/24/2024 11/20/2024 [facility] 08/20/2024
[2025-03-18 13:48] LABS: MANUAL DIFF FLAG NO
[2025-03-18 14:01] LABS: Hematocrit 38.4 % (42.0-52.0); Hemoglobin 12.4 g/dl (14.0-18.0); Imm Gran Abs Auto 0.02 X10*3/uL (0.00-0.03); Imm Gran Pct Auto 0.6 % (0.0-0.4); Lymphocytes Absolute Auto 0.6 X10*3/uL (1.2-4.9); Mean Corpuscular HGB Conc 32.3 g/dl (31.0-36.0); Mean Corpuscular Hemoglobin 27.3 pg (27.0-33.0); Mean Corpuscular Volume 84.4 fL (80.0-98.0); NRBC Abs Auto 0.000 X10*3/uL (0.0-0.012); NRBC Pct Auto 0.0 /100WBC (0.0-0.2); Platelet Count 158 X10*3/uL (160-400); Red Blood Count 4.55 X10*6/uL (4.60-5.80); White Blood Count 3.2 X10*3/uL (4.8-10.8)
[2025-03-18 14:19] LABS: Anion Gap 14 (12-20); Blood Urea Nitrogen 21 mg/dL (9-16); Calcium 9.2 mg/dL (8.4-10.2); Carbon Dioxide 31 mmol/L (22-29); Chloride 104 mmol/L (96-108); Estimated Glomerular Filt Rate 37; Magnesium 2.2 mg/dL (1.6-2.6); Potassium 3.7 mmol/L (3.3-5.1); Sodium 145 mmol/L (135-145)
[2025-03-18 14:39] LABS: Parathyroid Hormone Intact 342.7 pg/mL (8.7-77.1)
== END 2025-03-18 08:15 | disposition home or self-care (01) ==
LOC: HO.HKASLDS 08:14
PROVIDERS: Visit Provider Internal Medicine Nephrology
DX: I10 Essential (primary) hypertension (principal); D72.818 Other decreased white blood cell count; Z94.0 Kidney transplant status
CPT/HCPCS: 36415; 80051; 82306; 82310; 82565; 83735; 83970; 84100; 84520; 85025

== ENCOUNTER 2025-03-25 11:15 | Outpatient (AMB) | payer OTHER, SELFPAY ==
--- NOTE | 2025-03-25 11:30 | HO.NEPHOV_ITS ---
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 He was not on dialysis. Induction was done using IV methylprednisone and Thymoglobulin. Donor was CMV positive, EBV positive with a KDPI 82%. Patient was CMV positive, EBV positive with 0% PRA. He had 2 hour session of hemodialysis for hyperkalemia postoperatively. He had multiple admissions for GI bleed and anemia, gastric ulcers with no evidence of active bleeding. He had delayed graft function. He has been followed up by Urology. He underwent biopsy on 01/12/2024 which showed mild tubulitis T1 with minimal interstitial inflammation less than 10% , global sclerosis of 1/20 normal I the the mild to moderate diffuse interstitial fibrosis involving 20-30% of cortical area. His BK virus PCR has been negative. His DSA was negative. His Doppler showed no renal artery stenosis. He denies any chest pain, shortness of breath, proximal nocturnal dyspnea, orthopnea, pedal edema, urinary symptoms, fever. He is compliant with his medications. He maintains good hydration. His urine output is good. He avoids gufk-xbg-jbnssmb medications [facility] Medical History ESRD (end stage renal disease) CVA (cerebral vascular accident) TONG (obstructive sleep apnea) Gout Hypertension Surgical History Kidney replaced by transplant Social History Alcohol intake: never Patient Tobacco Use Status: Never used Tobacco Review of Systems Const All systems reviewed & are unremarkable except as noted in HPI and below Physical Exam Vital Signs: Last Vital Signs Pulse 66 03/25/25 11:31 BP 130/80 03/25/25 11:31 Pulse Ox 97 03/25/25 11:31 Oxygen Delivery Method Room Air 03/25/25 11:31 BMI result Body Mass Index 34.4 Const General: comfortable and no acute distress Orientation/consciousness: patient oriented x3 HEENT Head: Yes normocephalic Mouth: Normal oral and palatal mucosa present Eyes EOM: EOMs intact bilaterally Neck Neck: Yes supple Resp Auscultation: clear to auscultation bilaterally Cardio Jugular venous distension: no JVD Rate: regular rate GI Palpation (GI): Soft to palpation Auscultation: normal bowel sounds General: Yes no CVA tenderness Back/Spine/Pelvis Back: no CVA tenderness Skin General skin exam: no rashes or lesions noted Neuro General: patient oriented x3 and moves all extremities Extrem General: Yes no pedal edema Results Reviewed Nephrology Results: Hgb, (14.0-18.0) 12.4 g/dl L 03/18/25 WBC, (4.8-10.8) 3.2 X10*3/uL L 03/18/25 Plt Count, (160-400) 158 X10*3/uL L 03/18/25 Sodium, (135-145) 145 mmol/L 03/18/25 Potassium, (3.3-5.1) 3.7 mmol/L 03/18/25 Chloride, (96-108) 104 mmol/L 03/18/25 Carbon Dioxide, (22-29) 31 mmol/L H 03/18/25 BUN, (9-16) 21 mg/dL H 03/18/25 Creatinine, (0.5-1.4) 1.85 mg/dL H 03/18/25 Calcium, (8.4-10.2) 9.2 mg/dL 03/18/25 Phosphorus, (2.7-4.5) 2.5 mg/dL L 03/18/25 PTH Intact, (8.7-77.1) 342.7 pg/mL H 03/18/25 Assessment & Plan Assessment & Plan (1) Renal transplant recipient: Code(s): Z94.0 - Kidney transplant status Category: Surgical (2) Hypertension: Code(s): I10 - Essential (primary) hypertension Category: Medical Qualifiers: Hypertension type: primary hypertension Qualified Code(s): I10 - Essential (primary) hypertension (3) Leucopenia: Code(s): D72.819 - Decreased white blood cell count, unspecified Category: Medical Qualifiers: Leukopenia type: other Qualified Code(s): D72.818 - Other decreased white blood cell count Margareth Ricardo had a preemptive donor renal transplant 11 November 2023. He has H/O delayed graft function. He needed 1 hemodialysis treatment postoperatively. His DSA was negative. His urinalysis was bland. His serum creatinine has been stable. His urine protein creatinine ratio was normal. His Prospera was down to 0.13 on 04 of February. His transplant ultrasound in December showed mild hydronephrosis post stent removal. Allograft biopsy was done on 01/12/2024 which did not show any rejection. He has been on belatacept .( upcoming dose Sep 15 2024; Due May 26). 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 ( last dose of Belatecept was 06/23/2024) . He had finished a Mycelex but is on Bactrim and Valcyte. His BK virus PCR has been negative. His EBV and CMV status for donor and recipient were positive. He is on Coreg which has been keeping his blood pressure at goal at home. His calcium, phosphorus and magnesium has been at goal. He is not on any oral sodium bicarbonate. He had a bone marrow biopsy & was WNL as per patient. He is on myfortic to 360 mg bid . He should put sun screen. I did not make any other medication changes today. Needs to lose weight. Follow-up lab work ordered. Follow-up appointment given Orders: Orders Calcium 2 Months D72.818 - Other decreased white blood cell count, I10 - Essential (primary) hypertension, Z94.0 - Kidney transplant status Electrolytes 2 Months D72.818 - Other decreased white blood cell count, I10 - Essential (primary) hypertension, Z94.0 - Kidney transplant status Creatinine 2 Months D72.818 - Other decreased white blood cell count, I10 - Essential (primary) hypertension, Z94.0 - Kidney transplant status Alanine Aminotransferase 2 Months D72.818 - Other decreased white blood cell count, I10 - Essential (primary) hypertension, Z94.0 - Kidney transplant status Aspartate Amino Transferase 2 Months D72.818 - Other decreased white blood cell count, I10 - Essential (primary) hypertension, Z94.0 - Kidney transplant status Complete Blood Count Auto Diff 2 Months D72.818 - Other decreased white blood cell count, I10 - Essential (primary) hypertension, Z94.0 - Kidney transplant status Phosphorus 2 Months D72.818 - Other decreased white blood cell count, I10 - Essential (primary) hypertension, Z94.0 - Kidney transplant status Magnesium 2 Months D72.818 - Other decreased white blood cell count, I10 - Essential (primary) hypertension, Z94.0 - Kidney transplant status Blood Urea Nitrogen 2 Months D72.818 - Other decreased white blood cell count, I10 - Essential (primary) hypertension, Z94.0 - Kidney transplant status Protein Creatinine Ratio, Ur 2 Months D72.818 - Other decreased white blood cell count, I10 - Essential (primary) hypertension, Z94.0 - Kidney transplant status Coding Level of Care Code Est Pt Level 4 (26135) Diagnoses Renal transplant recipient Z94.0 Primary hypertension I10 Hypertension type: primary hypertension Other decreased white blood cell (WBC) count D72.818 Leukopenia type: other
[2025-03-25 11:31] VITALS: BP 130/80; PULSE 66; O2SAT 97; BMI 34.4
--- OUTSIDE RECORDS SUMMARY | 2025-03-25 12:29 | XMS_ITS | Clinical Summary ---
Author Organization [facility] Address [address] [place] [address] Care Team Providers Care Clinical Information Systems Director Name Role Phone Pcp, No Primary Care [...] patient's age to complete this topic Insurance [facility] [place] [facility] Care Teams Clinical Information Systems Director Relationship Specialty Start Date End Date Pcp, No PCP - General General Medicine 08/23/24
--- OUTSIDE RECORDS SUMMARY | 2025-03-25 12:29 | XMS_ITS | Clinical Summary ---
Author Organization [facility] Address [address] [place] [address] Phone Care Team Providers Care Golf Instructor Name Role Phone Ok Schuler Primary Care Provider [phone] Allergies Active Allergy Reactions Criticality Noted Date [...] capsule 3 024 Active epoetin salazar (Procrit) 87076 UNIT/ML injection INJECT 40,000 UNITS (1ML) SUBCUTANEOUSLY EVERY 7 DAYS 4 mL 5 024 Active Hospital, Clinic, or Other Facility Administered Medication Ordered Dose Route Frequency Start Date End Date Status Epoetin Salazar-epbx solution 30,000 UnitsIndications:Chronic kidney disease, not otherwise specified,Anemia in chronic kidney disease 41710 Units IJ Once 08/30/2023 Active Active Problems [...] patient's age to complete this [place] [id number] Care Teams Golf Instructor Relationship Specialty Start Date End Date Ok Schuler [address] [place] [id number] PCP - General 09/14/20
--- OUTSIDE RECORDS SUMMARY | 2025-03-25 12:29 | XMS_ITS | Clinical Summary ---
Author Organization [facility] Address [address] [place] [address] Phone Care Team Providers Care Auto Transport Driver Name Role Phone Ok Barakat MD Primary Care Provider [phone] Allergies Active Allergy Reactions Criticality Noted Date [...] sleep apnea 10/08/2017 Overview (06/10/2024): Followed at [place] [facility], followed by Dr Musa Allen [...] sleep medicine for evaluation of TONG. [facility] 01/2017 HTN (hypertension) 03/01/2017 Overview [...] AM EDT Office Visit Internal Medicine - [address] [address] Ok Barakat MD Hypertension, unspecified type (Primary [...] fu* CVA (cerebral vascular accid ent) ([facility] V24, [facility] V28) 03/01/2017 DX:CVA (cerebral vascular a ccident) ([facility]); COMMENT: Neurology (06/16/17): Continue aspirin, 48 hour Holter results discussed which showed no A. fib/flutter. Advised to follow up with sleep medicine for evaluation of TONG. [facility] 01/2017 CKD (chronic kidney disease) , stage II 04/14/2017 DX:CKD (chronic kidney disea se), stage II Mild obstructive sleep apnea 10/08/2017 DX: Mild obstructive sleep apnea; COMMENT: Followed at [place] [facility] at [facility], followed by Dr Musa Allen [...] Visit Internal Medicine - [address] [place] [address] Balbina Shelton, EXTRUSION PROCESS OPERATOR [address] [place] [address] Health Maintenance Due Date Last Done Comments [...] Annual BMP Blood Test 06/05/2025 06/05/2024, 06/05/2024 Social Influencers of Health Screening 10/29/2025 10/29/2024 DTaP,Tdap,and Td Vaccines (4 - Td or Tdap) 05/02/2028 05/02/2018, 12/21/2012, 09/06/2002 Colorectal Cancer Screening: Colonoscopy 07/01/2029 07/01/2019 Cholesterol Screening (Lipid Panel) 07/16/2029 07/16/2024, 06/05/2024, 06/05/2024 Hepatitis C Screening Completed 05/02/2018 Depression Screening Completed 10/29/2024 HIB Vaccines Aged Out No longer eligi [...] mg/dL LAB CHEMISTRY METHOD 07/16/2024 3:51 PM [facility] Triglycerides 113 0 - 150 mg/dL LAB CHEMISTRY METHOD 07/16/2024 3:51 PM [facility] HDL 48 >=40 mg/dL LAB CHEMISTRY METHOD 07/16/2024 3:51 PM [facility] LDL Calculated 84 0 - 100 mg/dL LAB CHEMISTRY METHOD 07/16/2024 3:51 PM [facility] VLDL Cholesterol Jacoby 22.6 mg/dL LAB CHEMISTRY METHOD 07/16/2024 3:51 PM [facility] Non HDL Chol. (LDL+VLDL) 107 <145 mg/dL LAB CHEMISTRY METHOD 07/16/2024 3:51 PM [facility] Chol/HDL Ratio 3.2 0.0 - 4.4 LAB CHEMISTRY METHOD 07/16/2024 3:51 PM [facility] Blood Venous blood specimen / Unknown Venipuncture / Unknown 07/16/2024 9:31 AM EST 07/16/2024 9:31 AM EST Ok Barakat MD LAB BLOOD ORDERABLES Lucía l Result [facility] [address] [place] [address], * Annual BMP Blood Test (06/05/2024) Annual BMP Blood Test ABSTRACTED Historical Provider HEALTH MAINTENANCE Final Result * Colonoscopy (07/01/2019) Colonoscopy no interpretation , abstracted Anatomical Region Laterality Modality Other Historical Provider HEALTH MAINTENANCE Final Result * Hepatitis C Screening (05/02/2018) Hepatitis C Screening ABSTRACTED Historical Provider HEALTH MAINTENANCE Final Result from Last 3 Months or Most Recently Relevant to Health Maintenance Insurance [facility] Care Teams Auto Transport Driver Relationship Specialty Start Date End Date Ok Barakat MD [address] [place] [id number] PCP - General Internal Medicine 02/06/17
== END 2025-03-25 11:58 | disposition home or self-care (01) ==
LOC: HO.HKAS 11:16
PROVIDERS: PCP Internal Medicine; Visit Provider Internal Medicine Nephrology
DX: Z94.0 Kidney transplant status (principal); I10 Essential (primary) hypertension; D72.818 Other decreased white blood cell count
CPT/HCPCS: 99214

== ENCOUNTER → 2025-03-25 11:15 | Outpatient (BNVA) | payer OTHER, SELFPAY | PROVIDERS: PCP Internal Medicine; Visit Provider Internal Medicine Nephrology | DX: Z94.0 Kidney transplant status (principal); D72.818 Other decreased white blood cell count; I10 Essential (primary) hypertension | CPT/HCPCS: 99212 ==

== ENCOUNTER 2025-05-21 10:27 | Outpatient (REF) | payer OTHER, SELFPAY ==
--- OUTSIDE RECORDS SUMMARY | 2025-05-21 12:51 | XMS_ITS | Clinical Summary ---
Author Organization [facility] Address [address] [place] [address] Phone Care Team Providers Care Excelsior Machine Tender Name Role Phone Ok Schuler Primary Care Provider [phone] Allergies Active Allergy Reactions Criticality Noted Date [...] capsule 3 024 Active epoetin salazar (Procrit) 67201 UNIT/ML injection INJECT 40,000 UNITS (1ML) SUBCUTANEOUSLY EVERY 7 DAYS 4 mL 5 024 Active Hospital, Clinic, or Other Facility Administered Medication Ordered Dose Route Frequency Start Date End Date Status Epoetin Salazar-epbx solution 30,000 UnitsIndications:Chronic kidney disease, not otherwise specified,Anemia in chronic kidney disease 65619 Units IJ Once 08/30/2023 Active Active Problems [...] patient's age to complete this topic Insurance [facility] [place] [id number] Care Teams Excelsior Machine Tender Relationship Specialty Start Date End Date Ok Schuler [address] [place] [address] PCP - General 09/14/20
--- OUTSIDE RECORDS SUMMARY | 2025-05-21 12:51 | XMS_ITS | Encounter Summary ---
Author Organization [facility], Address [address] [address] Phone Care Team Providers Care Medication Nurse Name Role Phone Ok Schuler Primary Care Provider [phone] Reason for Visit * Reason Comments Med Refill Encounter Details Date Type Department Care Team (Late st Contact Info) Description 02/09/2024 Refill [facility] [address] [place] [id number] Abimael Campo MD [address] [place] [id number] Social History Tobacco Use Types Packs/Day Years [...] on filedocumented in this encounter Care Teams Medication Nurse Relationship Specialty Start Date End Date Ok Schuler [address] [place] [address] [id number] PCP - General 09/14/20 documented as of this encounter
--- OUTSIDE RECORDS SUMMARY | 2025-05-21 12:51 | XMS_ITS | Encounter Summary ---
Author Organization [facility] Address [address] [place] [address] Phone Care Team Providers Care Market President Name Role Phone Ok Schuler Primary Care Provider [phone] Encounter Details Date Type Department Care Team (Late st Contact Info) Description 03/04/2021 Orders Only [facility] [address] [place] [address] Radha Elizondo MD Stage 3b chronic kidney [...] EDT) Vitamin D, 25-Hydroxy 28.2 (20-50) NG/ML [facility] Comment: Testing performed or reported by [facility], a Service of [facility], [address] [place] [id number] Julia Juárez MD, Bulk Sausage Casing Tier Off Blood specimen (specimen) Venous blood / Unknown 02/22/2021 9:37 AM EDT 02/22/2021 9:39 AM EDT Radha Elizondo MD LAB BLOOD ORDERABLES Final Resu lt Performing Organization Address [facility] Co de Phone Number [facility] * (ABNORMAL) PTH, intact (02/22/2021 9:37 AM EDT) Pathologist [facility] PTH, Intact 109(H) (15-65) PG/ML [facility] Comment: Testing performed or reported by [facility], a Service of [facility], [address] [place] [id number] Julia Juárez MD, Bulk Sausage Casing Tier Off Blood specimen (specimen) Venous blood / Unknown 02/22/2021 9:37 AM EDT 02/22/2021 9:39 AM EDT Radha Elizondo MD LAB BLOOD ORDERABLES Final Resu lt Performing Organization Address City/[facility]/ZIP Co de Phone Number [facility] * Uric acid (02/22/2021 9:37 AM EDT) Pathologist [facility] Uric Acid 5.8 (2.6-8.7) MG/DL [facility] Comment: Testing performed or reported by [facility] [employer] [facility], a Service of [address] [address] Julia Juárez MD, Bulk Sausage Casing Tier Off Blood specimen (specimen) Venous blood / Unknown 02/22/2021 9:37 AM EDT 02/22/2021 9:39 AM EDT us Radha Elizondo MD LAB BLOOD ORDERABLES Final Resu lt [facility] * (ABNORMAL) Renal function panel (02/22/2021 9:37 AM EDT) Glucose 105(H) (70-99) MG/DL [facility] BUN 38(H) (6-20) MG/DL [facility] Creatinine 2.8(H) (0.7-1.2) MG/DL [facility] Sodium 143 (133-145) MMOL/L [facility] Potassium 4.1 (3.6-5.2) MMOL/L [facility] Chloride 104 (98-107) MMOL/L [facility] Bicarbonate (CO2) 28 (22-29) MMOL/L [facility] Anion Gap 11 (4-17) [facility] Albumin 4.1 (3.4-4.8) GM/DL [facility] Calcium 9.2 (8.6-10.5) MG/DL [facility] Phosphorus, Serum 2.9 (2.5-4.5) MG/DL [facility] Est GFR Non 24 ML/MIN/1.7 3 M2 [facility] Comment: Creatinine based estimated glomerular filtration rate (eGFR) is calculated using the Chronic Kidney Disease Epidemiology Collaboration (CKD-EPI). The CKD-EPI creatinine equation has not been validated in children (<18 years), women or in some racial or ethnic subgroups other than Caucasians and Americans. EST GFR 27 ML/MIN/1.7 3 M2 [facility] Comment: Creatinine based estimated glomerular filtration rate (eGFR) is calculated using the Chronic Kidney Disease Epidemiology Collaboration (CKD-EPI). The CKD-EPI creatinine equation has not been validated in children (<18 years), women or in some racial or ethnic subgroups other than Caucasians and Americans. Testing performed or reported by [facility], a Service of [facility], [address] [place] [id number] Julia Juárez MD, Bulk Sausage Casing Tier Off Blood specimen (specimen) Venous blood / Unknown 02/22/2021 9:37 AM EDT 02/22/2021 9:39 AM EDT us Radha Elizondo MD LAB BLOOD ORDERABLES Final Resu lt [facility] documented in this encounter Visit Diagnoses Diagnosis Stage 3b chronic kidney disease (HCC) documented in this encounter Care Teams Market President Relationship Specialty Start Date End Date Ok Schuler [address] [place] [id number] PCP - General 09/14/20 documented as of this encounter
--- OUTSIDE RECORDS SUMMARY | 2025-05-21 12:51 | XMS_ITS | Encounter Summary ---
Author Organization [facility], Address [address] [place] [address] Phone Care Team Providers Care Real Estate Legal Secretary Name Role Phone Ok Schuler Primary Care Provider [phone] Encounter Details Date Type Department Care Team (Late st Contact Info) Description 12/19/2023 Documentation Only [facility], [address] [place] [phone] [place] [address] [place] [address] Social History Tobacco Use Types [...] on filedocumented in this encounter Care Teams Real Estate Legal Secretary Relationship Specialty Start Date End Date Ok Schuler [address] [place] [phone] PCP - General 09/14/20 documented as of this encounter
--- OUTSIDE RECORDS SUMMARY | 2025-05-21 12:51 | XMS_ITS | Clinical Summary ---
Author Organization 175 [facility] Address [address] [place] [address] Phone Care Team Providers Care Yarn Preparation Supervisor Name Role Phone Ok Barakat MD Primary Care Provider [phone] Allergies Active Allergy Reactions Criticality Noted Date [...] meals. 90 tablet 1 10/30/19 25 Active atorvastatin (LIPITOR) 10 mg tablet TAKE 1 TABLET BY MOUTH EVERY DAY 90 tablet 1 12/03/19 25 Active pantoprazole (PROTONIX) 40 mg EC tablet TAKE 1 TABLET BY MOUTH TWICE A DAY 180 tablet 1 04/04/20 25 Active aspirin 81 mg EC tablet TAKE 1 TABLET BY MOUTH 1 TIME EACH DAY. 90 tablet 1 05/08/20 25 Active aspirin 81 mg EC tablet Take 1 tablet (81 mg total) by mouth 1 (one) time each day. 90 tablet 1 10/30/19 25 025 Discontinued Active Problems Problem Noted Date Diagnosed [...] sleep apnea 10/08/2017 Overview (06/10/2024): Followed at [place] [facility] at [facility], followed by Dr Musa Allen Gout 08/28/2017 Assessment & Plan (03/10/2025 10:23 AM EDT): Stable. Continue allopurinol. Assessment & Plan (10/30/2024 3:35 PM EST): Continue allopurinol 100 mg daily. CKD (chronic kidney disease), stage II 7 CVA (cerebral vascular accident) ([facility] V24, C [facility] V28) 03/01/2017 Overview (06/10/2024): Neurology (06/16/17): Continue aspirin, 48 hour Holter results discussed which showed no A. fib/flutter. Advised to follow up with sleep medicine for evaluation of TONG. [facility] 01/2017 HTN (hypertension) 03/01/2017 Overview (06/10/2024): [...] AM EDT Office Visit Internal Medicine - [facility] [address] [place] [address] Ok Barakat MD Hypertension, unspecified type (Primary Dx); Hyperlipidemia, unspecified hyperlipidemia type; Kidney transplant recipient; Screening for prostate cancer; Gout, unspecified cause, unspecified chronicity, unspecified site; Screening for diabetes mellitus from Last 3 Months Immunizations Name Administration Dates Next Due Influenza, Unspecified 05/22/2024 [employer] SARS-CoV-2 COVID-19, mRNA, LNP-S, preservative free 06/13/2022,08/23/2021,01/17/2021,2020 [...] week fu* CVA (cerebral vascular accid ent) ([facility] V24, [facility] V28) 03/01/2017 DX:CVA (cerebral vascular a ccident) ([facility]); COMMENT: Neurology (06/16/17): Continue aspirin, 48 hour Holter results discussed which showed no A. fib/flutter. Advised to follow up with sleep medicine for evaluation of TONG. [facility] 01/2017 CKD (chronic kidney disease) , stage II 04/14/2017 DX:CKD (chronic kidney disea se), stage II Mild obstructive sleep apnea 10/08/2017 DX: Mild obstructive sleep apnea; COMMENT: Followed at [place] [facility] at [facility], followed by Dr Musa Allen Duodenal [...] Visit Internal Medicine - [facility] [address] [place] [address] Balbina Shelton, CAN RECONDITIONER [address] [place] [address] Health Maintenance Due Date Last Done Comments Pneumococcal Vaccine: 50+ Years (1 of 2 - PCV) 1982 Zoster Vaccines (1 of 2) 1982 HIV Screening 08/13/2022 RSV Immunization Adult Patients (1 - Risk 60-74 years 1-dose series) 2023 COVID-19 Vaccine (7 - Pfizer risk 2023- season) 2025 05/22/2024, 07/30/2023, 06/13/2022, Additional history exists Influenza [...] mg/dL LAB CHEMISTRY METHOD 07/16/2024 3:51 PM [facility] Triglycerides 113 0 - 150 mg/dL LAB CHEMISTRY METHOD 07/16/2024 3:51 PM [facility] HDL 48 >=40 mg/dL LAB CHEMISTRY METHOD 07/16/2024 3:51 PM [facility] LDL Calculated 84 0 - 100 mg/dL LAB CHEMISTRY METHOD 07/16/2024 3:51 PM [facility] VLDL Cholesterol Jacoby 22.6 mg/dL LAB CHEMISTRY METHOD 07/16/2024 3:51 PM [facility] Non HDL Chol. (LDL+VLDL) 107 <145 mg/dL LAB CHEMISTRY METHOD 07/16/2024 3:51 PM [facility] Chol/HDL Ratio 3.2 0.0 - 4.4 LAB CHEMISTRY METHOD 07/16/2024 3:51 PM [facility] Blood Venous blood specimen / Unknown Venipuncture / Unknown 07/16/2024 9:31 AM EST 07/16/2024 9:31 AM EST us Ok Barakat MD LAB BLOOD ORDERABLES Lucía l Result [facility] [address] [place] [address], * Annual BMP Blood Test (06/05/2024) Pathologist [facility] Annual BMP Blood Test ABSTRACTED Historical Provider HEALTH MAINTENANCE Final Result * Colonoscopy (07/01/2019) [facility] Colonoscopy no interpretation , abstracted Anatomical Region Laterality Modality Other Historical Provider HEALTH MAINTENANCE Final Result * Hepatitis C Screening (05/02/2018) [facility] Hepatitis C Screening ABSTRACTED Historical Provider HEALTH MAINTENANCE Final Result from Last 3 Months or Most Recently Relevant to Health Maintenance Insurance [facility] Care Teams Yarn Preparation Supervisor Relationship Specialty Start Date End Date Ok Barakat MD [address] [place] [address] PCP - General Internal Medicine 02/06/17
--- OUTSIDE RECORDS SUMMARY | 2025-05-21 12:51 | XMS_ITS | Encounter Summary ---
Author Organization [facility] Address [address] [place] [address] Phone Care Team Providers Care Milk Runner Name Role Phone Ok Schuler Primary Care Provider [phone] Encounter Details Date Type Department Care Team (Late st Contact Info) Description 07/21/2022 Telephone [facility] [address] [place] [phone] Radha Elizondo MD Social History Tobacco Use [...] on filedocumented in this encounter Care Teams Milk Runner Relationship Specialty Start Date End Date Ok Schuler [address] [place] [address] PCP - General 09/14/20 documented as of this encounter
--- OUTSIDE RECORDS SUMMARY | 2025-05-21 12:51 | XMS_ITS | Encounter Summary ---
Author Organization [facility], Address [address] [place] [address] Phone Care Team Providers Care Barrel Finisher Name Role Phone Ok Schuler Primary Care Provider [phone] Encounter Details Date Type Department Care Team (Late st Contact Info) Description 01/12/2024 Documentation Only [facility], [address] [place] [phone] [place] [address] [place] [phone] Social History Tobacco Use Types Packs/Day Years [...] on filedocumented in this encounter Care Teams Barrel Finisher Relationship Specialty Start Date End Date Ok Schuler [address] [place] [phone] PCP - General 09/14/20 documented as of this encounter
--- OUTSIDE RECORDS SUMMARY | 2025-05-21 12:51 | XMS_ITS | Clinical Summary ---
Author Organization [facility] Address [address] [place] [address] Care Team Providers Care Case Therapist Name Role Phone Pcp, No Primary Care [...] Zoster (Shingles) Vaccine (1 of 2) 2013 Influenza Vaccine 04/04/2025 05/22/2024, , 06/13/2022, Additional history exists COVID-19 Vaccine ( season) 2025 07/30/2023, 06/13/2022, 08/23/2021, Additional history exists RSV Vaccine 60 years and older and Patients (1 - 1-dose 75+ series) 2038 Hepatitis B Vaccines Aged Out No long er eligible based on patient's age to complete this topic Insurance [facility] Care Teams Case Therapist Relationship Specialty Start Date End Date Pcp, No PCP - General General Medicine 08/23/24
--- OUTSIDE RECORDS SUMMARY | 2025-05-21 12:51 | XMS_ITS | Encounter Summary ---
Author Organization [facility] Address [address] [place] [address] Phone Care Team Providers Care Aircraft Manager Name Role Phone Ok Schuler Primary Care Provider [phone] Encounter Details Date Type Department Care Team (Late st Contact Info) Description 07/14/2022 Telephone [facility] [address] [place] [phone] Kayla Mendieta Social History Tobacco Use Types [...] on filedocumented in this encounter Care Teams Aircraft Manager Relationship Specialty Start Date End Date Ok Schuler [address] [place] [id number] PCP - General 09/14/20 documented as of this encounter
[2025-05-21 13:14] LABS: Hematocrit 35.2 % (42.0-52.0); Hemoglobin 11.3 g/dl (14.0-18.0); Imm Gran Abs Auto 0.01 X10*3/uL (0.00-0.03); Imm Gran Pct Auto 0.4 % (0.0-0.4); Lymphocytes Absolute Auto 0.5 X10*3/uL (1.2-4.9); MANUAL DIFF FLAG SCAN; Mean Corpuscular HGB Conc 32.1 g/dl (31.0-36.0); Mean Corpuscular Hemoglobin 27.1 pg (27.0-33.0); Mean Corpuscular Volume 84.4 fL (80.0-98.0); NRBC Abs Auto 0.000 X10*3/uL (0.0-0.012); NRBC Pct Auto 0.0 /100WBC (0.0-0.2); Platelet Count 128 X10*3/uL (160-400); Red Blood Count 4.17 X10*6/uL (4.60-5.80); SCAN SMEAR FLAG 1
[2025-05-21 13:15] LABS: White Blood Count 2.5 X10*3/uL (4.8-10.8)
[2025-05-21 14:09] LABS: Alanine Aminotransferase 25 U/L (0-40); Anion Gap 12 (12-20); Aspartate Amino Transferase 33 U/L (5-37); Blood Urea Nitrogen 19 mg/dL (9-16); Calcium 8.6 mg/dL (8.4-10.2); Carbon Dioxide 30 mmol/L (22-29); Chloride 102 mmol/L (96-108); Estimated Glomerular Filt Rate 39; Magnesium 1.9 mg/dL (1.6-2.6); Potassium 3.1 mmol/L (3.3-5.1); Sodium 141 mmol/L (135-145)
== END 2025-05-21 10:28 | disposition home or self-care (01) ==
LOC: HO.HKASLDS 10:27
PROVIDERS: Visit Provider Internal Medicine Nephrology
DX: I10 Essential (primary) hypertension (principal); D72.818 Other decreased white blood cell count; Z94.0 Kidney transplant status
CPT/HCPCS: 36415; 80051; 82310; 82565; 83735; 84100; 84450; 84460; 84520; 85025

== ENCOUNTER 2025-05-23 14:24 | Outpatient (REF) | payer OTHER, SELFPAY ==
--- OUTSIDE RECORDS SUMMARY | 2025-05-23 14:29 | XMS_ITS | Clinical Summary ---
Author Organization [facility] Address [address] [place] [address] Care Team Providers Care Director Translation Name Role Phone Pcp, No Primary Care [...] patient's age to complete this topic Insurance [facility] Care Teams Director Translation Relationship Specialty Start Date End Date Pcp, No PCP - General General Medicine 08/23/24
--- OUTSIDE RECORDS SUMMARY | 2025-05-23 14:29 | XMS_ITS | Encounter Summary ---
Author Organization [facility] Address [address] [place] [address] Phone Care Team Providers Care Orthotic/Prosthetic Clinician Name Role Phone Ok Schuler Primary Care Provider [phone] Encounter Details Date Type Department Care Team (Late st Contact Info) Description 07/14/2022 Telephone [facility] [address] [place] [phone] Kayla Mendieta Social History Tobacco Use Types [...] on filedocumented in this encounter Care Teams Orthotic/Prosthetic Clinician Relationship Specialty Start Date End Date Ok Schuler [address] [place] [address] PCP - General 09/14/20 documented as of this encounter
--- OUTSIDE RECORDS SUMMARY | 2025-05-23 14:29 | XMS_ITS | Encounter Summary ---
Author Organization [facility] Address [address] [place] [address] Phone Care Team Providers Care Radiology Asst Name Role Phone Ok Schuler Primary Care Provider [phone] Encounter Details Date Type Department Care Team (Late st Contact Info) Description 03/04/2021 Orders Only [facility] [address] [place] [address] Radha Elizondo MD Stage 3b chronic kidney [...] EDT) Vitamin D, 25-Hydroxy 28.2 (20-50) NG/ML [facility] Comment: Testing performed or reported by [facility], a Service of [facility], [address] [place] [address] Julia Juárez MD, Seismograph Observer Blood specimen (specimen) Venous blood / Unknown 02/22/2021 9:37 AM EDT 02/22/2021 9:39 AM EDT Radha Elizondo MD LAB BLOOD ORDERABLES Final Resu lt Performing Organization Address [facility] Co de Phone Number [facility] * (ABNORMAL) PTH, intact (02/22/2021 9:37 AM EDT) Pathologist [facility] PTH, Intact 109(H) (15-65) PG/ML [facility] Comment: Testing performed or reported by [facility], a Service of [facility], [address] [place] [address] Julia Juárez MD, Seismograph Observer Blood specimen (specimen) Venous blood / Unknown 02/22/2021 9:37 AM EDT 02/22/2021 9:39 AM EDT Radha Elizondo MD LAB BLOOD ORDERABLES Final Resu lt Performing Organization Address City/[facility]/ZIP Co de Phone Number [facility] * Uric acid (02/22/2021 9:37 AM EDT) Pathologist [facility] Uric Acid 5.8 (2.6-8.7) MG/DL [facility] Comment: Testing performed or reported by [facility] [employer], a Service of [address] [address] Julia Juárez MD, Seismograph Observer Blood specimen (specimen) Venous blood / Unknown 02/22/2021 9:37 AM EDT 02/22/2021 9:39 AM EDT us Radha Eliozndo MD LAB BLOOD ORDERABLES Final Resu lt [facility] * (ABNORMAL) Renal function panel (02/22/2021 9:37 AM EDT) Glucose 105(H) (70-99) MG/DL [facility] BUN 38(H) (6-20) MG/DL [facility] Creatinine 2.8(H) (0.7-1.2) MG/DL [facility] Sodium 143 (133-145) MMOL/L [facility] Potassium 4.1 (3.6-5.2) MMOL/L [facility] Chloride 104 (98-107) MMOL/L [facility] Bicarbonate (CO2) 28 (22-29) MMOL/L [facility] Anion Gap 11 (4-17) [facility] Albumin 4.1 (3.4-4.8) GM/DL [facility] Calcium 9.2 (8.6-10.5) MG/DL [facility] Phosphorus, Serum 2.9 (2.5-4.5) MG/DL [facility] Est GFR Non 24 ML/MIN/1.7 3 M2 [facility] Comment: Creatinine based estimated glomerular filtration rate (eGFR) is calculated using the Chronic Kidney Disease Epidemiology Collaboration (CKD-EPI). The CKD-EPI creatinine equation has not been validated in children (<18 years), women or in some racial or ethnic subgroups other than Caucasians and Americans. EST GFR 27 ML/MIN/1.7 3 M2 [facility] Comment: Creatinine based estimated glomerular filtration rate (eGFR) is calculated using the Chronic Kidney Disease Epidemiology Collaboration (CKD-EPI). The CKD-EPI creatinine equation has not been validated in children (<18 years), women or in some racial or ethnic subgroups other than Caucasians and Americans. Testing performed or reported by [facility], a Service of [facility], [address] [place] [address] Julia Juárez MD, Seismograph Observer Blood specimen (specimen) Venous blood / Unknown 02/22/2021 9:37 AM EDT 02/22/2021 9:39 AM EDT us Radha Elizondo MD LAB BLOOD ORDERABLES Final Resu lt [facility] documented in this encounter Visit Diagnoses Diagnosis Stage 3b chronic kidney disease (HCC) documented in this encounter Care Teams Radiology Asst Relationship Specialty Start Date End Date Ok Schuler [address] [place] [id number] PCP - General 09/14/20 documented as of this encounter
--- OUTSIDE RECORDS SUMMARY | 2025-05-23 14:29 | XMS_ITS | Clinical Summary ---
Author Organization 175 [facility] Address [address] [place] [address] Phone Care Team Providers Care Edging Catcher Name Role Phone Ok Barakat MD Primary Care Provider [phone] Allergies Active Allergy Reactions Criticality Noted Date [...] sleep apnea 10/08/2017 Overview (06/10/2024): Followed at [place] [facility] at [facility], followed by Dr Musa Allen Gout 08/28/2017 Assessment & Plan (03/10/2025 10:23 AM EDT): Stable. Continue allopurinol. Assessment & Plan (10/30/2024 3:35 PM EST): Continue allopurinol 100 mg daily. CKD (chronic kidney disease), stage II 7 CVA (cerebral vascular accident) ([facility] V24, C MS/[facility] V28) 03/01/2017 Overview (06/10/2024): Neurology (06/16/17): Continue aspirin, 48 hour Holter results discussed which showed no A. fib/flutter. Advised to follow up with sleep medicine for evaluation of TONG. [facility] 01/2017 HTN (hypertension) 03/01/2017 Overview (06/10/2024): [...] AM EDT Office Visit Internal Medicine - [facility] [address] [place] [address] Ok Barakat MD Hypertension, unspecified type (Primary Dx); Hyperlipidemia, unspecified hyperlipidemia type; Kidney transplant recipient; Screening for prostate cancer; Gout, unspecified cause, unspecified chronicity, unspecified site; Screening for diabetes mellitus from Last 3 Months Immunizations Name Administration Dates Next Due Influenza, Unspecified 05/22/2024 [employer] SARS-CoV-2 COVID-19, mRNA, LNP-S, preservative free 06/13/2022,08/23/2021,01/17/2021,2020 [...] week fu* CVA (cerebral vascular accid ent) ([facility] V24, [facility] V28) 03/01/2017 DX:CVA (cerebral vascular a ccident) ([facility]); COMMENT: Neurology (06/16/17): Continue aspirin, 48 hour Holter results discussed which showed no A. fib/flutter. Advised to follow up with sleep medicine for evaluation of TONG. [facility] 01/2017 CKD (chronic kidney disease) , stage II 04/14/2017 DX:CKD (chronic kidney disea se), stage II Mild obstructive sleep apnea 10/08/2017 DX: Mild obstructive sleep apnea; COMMENT: Followed at [place] [facility], followed by Dr Musa Allen Duodenal [...] - [facility] [address] [place] [address] Balbina Shelton, TRUCK CRANE OPERATOR [address] [place] [address] Health Maintenance Due Date Last Done Comments [...] mg/dL LAB CHEMISTRY METHOD 07/16/2024 3:51 PM [facility] Triglycerides 113 0 - 150 mg/dL LAB CHEMISTRY METHOD 07/16/2024 3:51 PM [facility] HDL 48 >=40 mg/dL LAB CHEMISTRY METHOD 07/16/2024 3:51 PM [facility] LDL Calculated 84 0 - 100 mg/dL LAB CHEMISTRY METHOD 07/16/2024 3:51 PM [facility] VLDL Cholesterol Jacoby 22.6 mg/dL LAB CHEMISTRY METHOD 07/16/2024 3:51 PM [facility] Non HDL Chol. (LDL+VLDL) 107 <145 mg/dL LAB CHEMISTRY METHOD 07/16/2024 3:51 PM [facility] Chol/HDL Ratio 3.2 0.0 - 4.4 LAB CHEMISTRY METHOD 07/16/2024 3:51 PM [facility] Blood Venous blood specimen / Unknown Venipuncture / Unknown 07/16/2024 9:31 AM EST 07/16/2024 9:31 AM EST us Ok Barakat MD LAB BLOOD ORDERABLES Lucía l Result [facility] H[facility] LAB [address] [place] [address], * Annual BMP Blood Test (06/05/2024) Pathologist [facility] Annual BMP Blood Test ABSTRACTED Historical Provider HEALTH MAINTENANCE Final Result * Colonoscopy (07/01/2019) [facility] Colonoscopy no interpretation , abstracted Anatomical Region Laterality Modality Other Historical Provider HEALTH MAINTENANCE Final Result * Hepatitis C Screening (05/02/2018) [facility] Hepatitis C Screening ABSTRACTED Historical Provider HEALTH MAINTENANCE Final Result from Last 3 Months or Most Recently Relevant to Health Maintenance Insurance [facility] Care Teams Edging Catcher Relationship Specialty Start Date End Date Ok Barakat MD [address] [place] [phone] PCP - General Internal Medicine 02/06/17
--- OUTSIDE RECORDS SUMMARY | 2025-05-23 14:29 | XMS_ITS | Encounter Summary ---
Author Organization [facility], Address [address] [place] [address] Phone Care Team Providers Care Hand Almond Blancher Name Role Phone Ok Schuler Primary Care Provider [phone] Encounter Details Date Type Department Care Team (Late st Contact Info) Description 01/12/2024 Documentation Only [facility], [address] [place] [phone] [place] [address] [place] [address] Social History Tobacco Use Types Packs/Day Years [...] on filedocumented in this encounter Care Teams Hand Almond Blancher Relationship Specialty Start Date End Date Ok Schuler [address] [place] [address] PCP - General 09/14/20 documented as of this encounter
--- OUTSIDE RECORDS SUMMARY | 2025-05-23 14:29 | XMS_ITS | Encounter Summary ---
Author Organization [facility] Address [address] [facility] [address] [place] [address] Phone Care Team Providers Care Clinical Technologist Name Role Phone Ok Schuler Primary Care Provider [phone] Encounter Details Date Type Department Care Team (Late st Contact Info) Description 07/21/2022 Telephone [facility] [address] [place] [phone] Radha Elizondo MD Social History Tobacco Use [...] on filedocumented in this encounter Care Teams Clinical Technologist Relationship Specialty Start Date End Date Ok Schuler [address] [place] [address] PCP - General 09/14/20 documented as of this encounter
--- OUTSIDE RECORDS SUMMARY | 2025-05-23 14:29 | XMS_ITS | Encounter Summary ---
Author Organization [facility], Address [address] [place] [address] Phone Care Team Providers Care Temperature Control Inspector Name Role Phone Ok Schuler Primary Care Provider [phone] Encounter Details Date Type Department Care Team (Late st Contact Info) Description 12/19/2023 Documentation Only [facility], [address] [place] [phone] [place], [place] [address] [place] [address] Social History Tobacco Use Types [...] on filedocumented in this encounter Care Teams Temperature Control Inspector Relationship Specialty Start Date End Date Ok Schuler [address] [place] [id number] PCP - General 09/14/20 documented as of this encounter
--- OUTSIDE RECORDS SUMMARY | 2025-05-23 14:29 | XMS_ITS | Clinical Summary ---
Author Organization [facility] Address [address] [place] [address] Phone Care Team Providers Care Framing Mechanic Name Role Phone Ok Schuler Primary Care Provider [phone] Allergies Active Allergy Reactions Criticality Noted Date [...] capsule 3 024 Active epoetin salazar (Procrit) 87125 UNIT/ML injection INJECT 40,000 UNITS (1ML) SUBCUTANEOUSLY EVERY 7 DAYS 4 mL 5 024 Active Hospital, Clinic, or Other Facility Administered Medication Ordered Dose Route Frequency Start Date End Date Status Epoetin Salazar-epbx solution 30,000 UnitsIndications:Chronic kidney disease, not otherwise specified,Anemia in chronic kidney disease 85910 Units IJ Once 08/30/2023 Active Active Problems [...] patient's age to complete this topic [place] [id number] Care Teams Framing Mechanic Relationship Specialty Start Date End Date Ok Schuler [address] [place] [address] PCP - General 09/14/20
--- OUTSIDE RECORDS SUMMARY | 2025-05-23 14:29 | XMS_ITS | Encounter Summary ---
Author Organization [facility], Address [address] [address] Phone Care Team Providers Care Fire Tower Keeper Name Role Phone Ok Schuler Primary Care Provider [phone] Reason for Visit * Reason Comments Med Refill Encounter Details Date Type Department Care Team (Late st Contact Info) Description 02/09/2024 Refill [facility] [address] [place] [phone] Abimael Campo MD [address] [place] [phone] Social History Tobacco Use Types Packs/Day Years [...] on filedocumented in this encounter Care Teams Fire Tower Keeper Relationship Specialty Start Date End Date Ok Schuler [address] [place] [id number] PCP - General 09/14/20 documented as of this encounter
[2025-05-23 18:29] LABS: Total Protein Urine Random < 7 mg/dL (<12)
== END 2025-05-23 14:25 | disposition home or self-care (01) ==
LOC: HO.HKASLDS 14:24
PROVIDERS: Visit Provider Internal Medicine Nephrology
DX: I10 Essential (primary) hypertension (principal); D72.818 Other decreased white blood cell count; Z94.0 Kidney transplant status
CPT/HCPCS: 82570; 84156

== ENCOUNTER 2025-05-27 09:12 | Outpatient (AMB) | payer OTHER, SELFPAY ==
--- NOTE | 2025-05-27 09:31 | HO.NEPHOV_ITS ---
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 He was not on dialysis. Induction was done using IV methylprednisone and Thymoglobulin. Donor was CMV positive, EBV positive with a KDPI 82%. Patient was CMV positive, EBV positive with 0% PRA. He had 2 hour session of hemodialysis for hyperkalemia postoperatively. He had multiple admissions for GI bleed and anemia, gastric ulcers with no evidence of active bleeding. He had delayed graft function. He has been followed up by Urology. He underwent biopsy on 01/12/2024 which showed mild tubulitis T1 with minimal interstitial inflammation less than 10% , global sclerosis of 1/20 normal I the the mild to moderate diffuse interstitial fibrosis involving 20-30% of cortical area. His BK virus PCR has been negative. His DSA was negative. His Doppler showed no renal artery stenosis. He denies any chest pain, shortness of breath, proximal nocturnal dyspnea, orthopnea, pedal edema, urinary symptoms, fever. He is compliant with his medications. He maintains good hydration. His urine output is good. He avoids snlj-xpt-mlehnnc medications. His serum potassium has been low [facility] Medical History ESRD (end stage renal disease) CVA (cerebral vascular accident) TONG (obstructive sleep apnea) Gout Hypertension Surgical History Kidney replaced by transplant Social History Alcohol intake: never Patient Tobacco Use Status: Never used Tobacco Review of Systems Const All systems reviewed & are unremarkable except as noted in HPI and below Physical Exam Const General: comfortable and no acute distress Orientation/consciousness: patient oriented x3 HEENT Head: Yes normocephalic Mouth: Normal oral and palatal mucosa present Eyes EOM: EOMs intact bilaterally Neck Neck: Yes supple Resp Auscultation: clear to auscultation bilaterally Cardio Jugular venous distension: no JVD Rate: regular rate GI Palpation (GI): Soft to palpation Auscultation: normal bowel sounds General: Yes no CVA tenderness Back/Spine/Pelvis Back: no CVA tenderness Skin General skin exam: no rashes or lesions noted Neuro General: patient oriented x3 and moves all extremities Extrem General: Yes no pedal edema Results Reviewed Nephrology Results: Hgb, (14.0-18.0) 11.3 g/dl L 05/21/25 WBC, (4.8-10.8) 2.5 X10*3/uL L 05/21/25 Plt Count, (160-400) 128 X10*3/uL L 05/21/25 Sodium, (135-145) 141 mmol/L 05/21/25 Potassium, (3.3-5.1) 3.1 mmol/L L 05/21/25 Chloride, (96-108) 102 mmol/L 05/21/25 Carbon Dioxide, (22-29) 30 mmol/L H 05/21/25 BUN, (9-16) 19 mg/dL H 05/21/25 Creatinine, (0.5-1.4) 1.77 mg/dL H 05/21/25 Calcium, (8.4-10.2) 8.6 mg/dL Δ 05/21/25 Phosphorus, (2.7-4.5) 2.6 mg/dL L 05/21/25 PTH Intact, (8.7-77.1) 342.7 pg/mL H 03/18/25 Urine Creatinine 121.60 mg/dL 05/23/25 Protein/Creatinin Ratio TNP 05/23/25 Assessment & Plan Assessment & Plan (1) Renal transplant recipient: Code(s): Z94.0 - Kidney transplant status Category: Surgical (2) Hypokalemia: Code(s): E87.6 - Hypokalemia Category: Medical (3) Leucopenia: Code(s): D72.819 - Decreased white blood cell count, unspecified Category: Medical Qualifiers: Leukopenia type: other Qualified Code(s): D72.818 - Other decreased white blood cell count (4) Hypertension: Code(s): I10 - Essential (primary) hypertension Category: Medical Qualifiers: Hypertension type: primary hypertension Qualified Code(s): I10 - Essential (primary) hypertension (5) Vitamin D deficiency: Code(s): E55.9 - Vitamin D deficiency, unspecified Category: Medical (6) Secondary hyperparathyroidism (of renal origin): Code(s): N25.81 - Secondary hyperparathyroidism of renal origin Category: Medical Plan Davion had a preemptive donor renal transplant November 2023. He has H/O delayed graft function. He needed 1 hemodialysis treatment postoperatively. His DSA was negative. His urinalysis was bland. His serum creatinine has been stable. His urine protein creatinine ratio was normal. His Prospera was down to 0.13 on 04 of February. His transplant ultrasound in December showed mild hydronephrosis post stent removal. Allograft biopsy was done on 01/12/2024 which did not show any rejection. 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 ( last dose of Belatecept was 06/23/2024) . He had finished a Mycelex , Bactrim and Valcyte. His BK virus PCR has been negative. His EBV and CMV status for donor and recipient were positive. He is on Coreg which has been keeping his blood pressure at goal at home. His calcium, phosphorus and magnesium has been at goal. He is not on any oral sodium bicarbonate. He had a bone marrow biopsy & was WNL as per patient. He is on myfortic to 360 mg bid . He should put sun screen. I replaced his po tassium and vitamin D . did not make any other medication changes today. Needs to lose weight. Follow-up lab work ordered. Follow-up appointment given Orders: Orders Blood Urea Nitrogen 2 Months D72.818 - Other decreased white blood cell count, E55.9 - Vitamin D deficiency, unspecified, E87.6 - Hypokalemia, I10 - Essential (primary) hypertension, N25.81 - Secondary hyperparathyroidism of renal origin, Z94.0 - Kidney transplant status Calcium 2 Months D72.818 - Other decreased white blood cell count, E55.9 - Vitamin D deficiency, unspecified, E87.6 - Hypokalemia, I10 - Essential (primary) hypertension, N25.81 - Secondary hyperparathyroidism of renal origin, Z94.0 - Kidney transplant status Protein Creatinine Ratio, Ur 2 Months D72.818 - Other decreased white blood cell count, E55.9 - Vitamin D deficiency, unspecified, E87.6 - Hypokalemia, I10 - Essential (primary) hypertension, N25.81 - Secondary hyperparathyroidism of renal origin, Z94.0 - Kidney transplant status Complete Blood Count Auto Diff 2 Months D72.818 - Other decreased white blood cell count, E55.9 - Vitamin D deficiency, unspecified, E87.6 - Hypokalemia, I10 - Essential (primary) hypertension, N25.81 - Secondary hyperparathyroidism of renal origin, Z94.0 - Kidney transplant status Creatinine 2 Months D72.818 - Other decreased white blood cell count, E55.9 - Vitamin D deficiency, unspecified, E87.6 - Hypokalemia, I10 - Essential (primary) hypertension, N25.81 - Secondary hyperparathyroidism of renal origin, Z94.0 - Kidney transplant status Electrolytes 2 Months D72.818 - Other decreased white blood cell count, E55.9 - Vitamin D deficiency, unspecified, E87.6 - Hypokalemia, I10 - Essential (primary) hypertension, N25.81 - Secondary hyperparathyroidism of renal origin, Z94.0 - Kidney transplant status Phosphorus 2 Months D72.818 - Other decreased white blood cell count, E55.9 - Vitamin D deficiency, unspecified, E87.6 - Hypokalemia, I10 - Essential (primary) hypertension, N25.81 - Secondary hyperparathyroidism of renal origin, Z94.0 - Kidney transplant status Magnesium 2 Months D72.818 - Other decreased white blood cell count, E55.9 - Vitamin D deficiency, unspecified, E87.6 - Hypokalemia, I10 - Essential (primary) hypertension, N25.81 - Secondary hyperparathyroidism of renal origin, Z94.0 - Kidney transplant status Alanine Aminotransferase 2 Months D72.818 - Other decreased white blood cell count, E55.9 - Vitamin D deficiency, unspecified, E87.6 - Hypokalemia, I10 - Ess ential (primary) hypertension, N25.81 - Secondary hyperparathyroidism of renal origin, Z94.0 - Kidney transplant status Aspartate Amino Transferase 2 Months D72.818 - Other decreased white blood cell count, E55.9 - Vitamin D deficiency, unspecified, E87.6 - Hypokalemia, I10 - Essential (primary) hypertension, N25.81 - Secondary hyperparathyroidism of renal origin, Z94.0 - Kidney transplant status UA and rflx microscopic 2 Months D72.818 - Other decreased white blood cell count, E55.9 - Vitamin D deficiency, unspecified, E87.6 - Hypokalemia, I10 - Essential (primary) hypertension, N25.81 - Secondary hyperparathyroidism of renal origin, Z94.0 - Kidney transplant status Medications: New cholecalciferol (vitamin D3) 50 mcg PO DAILY 90 caps 4RF potassium chloride ER (Klor-Con) 10 mEq PO DAILY 20 tabs 0RF 20 days Coding Level of Care Code Est Pt Level 4 (96955) Diagnoses Renal transplant recipient Z94.0 Hypokalemia E87.6 Other decreased white blood cell (WBC) count D72.818 Leukopenia type: other Primary hypertension I10 Hypertension type: primary hypertension Vitamin D deficiency E55.9 Secondary hyperparathyroidism (of renal origin) N25.81
[2025-05-27 09:35] VITALS: BP 130/70; PULSE 61; O2SAT 98; BMI 33.9
--- OUTSIDE RECORDS SUMMARY | 2025-05-27 10:44 | XMS_ITS | Clinical Summary ---
Author Organization [facility] Address [address] [place] [address] Care Team Providers Care Brand Marketing Specialist Name Role Phone Pcp, No Primary [...] patient's age to complete this topic Insurance [facility] Care Teams Brand Marketing Specialist Relationship Specialty Start Date End Date Pcp, No PCP - General General Medicine 08/23/24
--- OUTSIDE RECORDS SUMMARY | 2025-05-27 10:44 | XMS_ITS | Encounter Summary ---
Author Organization [facility], Address [address] [place] [address] Phone Care Team Providers Care Aircraft Riveter Name Role Phone Ok Schuler Primary Care Provider Encounter Details Date Type Department Care Team (Late st Contact Info) Description 01/12/2024 Documentation Only [facility], [address] [place] [phone] [place], [place] [address] [place] [phone] Social History Tobacco Use Types Packs/Day Years [...] filedocumented in this encounter Care Teams Aircraft Riveter Relationship Specialty Start Date End Date Ok Schuler [address] [place] [id number] PCP - General 09/14/20 documented as of this encounter
--- OUTSIDE RECORDS SUMMARY | 2025-05-27 10:44 | XMS_ITS | Encounter Summary ---
Author Organization [facility], Address [address] [address] Phone Care Team Providers Care Drafter Apprentice Name Role Phone Ok Schuler Primary Care Provider [phone] Reason for Visit * Reason Comments Med Refill Encounter Details Date Type Department Care Team (Late st Contact Info) Description 02/09/2024 Refill [facility] [address] [place] [phone] Abimael Campo MD [address] [place] [id number] Social History Tobacco Use Types Packs/Day Years [...] on filedocumented in this encounter Care Teams Drafter Apprentice Relationship Specialty Start Date End Date Ok Schuler [address] [place] [address] [id number] PCP - General 09/14/20 documented as of this encounter
--- OUTSIDE RECORDS SUMMARY | 2025-05-27 10:44 | XMS_ITS | Encounter Summary ---
Author Organization [facility], Address [address] [place] [address] Phone Care Team Providers Care Lawn Service Manager Name Role Phone Ok Schuler Primary Care Provider [phone] Encounter Details Date Type Department Care Team (Late st Contact Info) Description 12/19/2023 Documentation Only [facility], [address] [place] [phone] [place], [place] [address] [place] [address] Social History Tobacco Use Types [...] on filedocumented in this encounter Care Teams Lawn Service Manager Relationship Specialty Start Date End Date Ok Schuler [address] [place] [id number] PCP - General 09/14/20 documented as of this encounter
--- OUTSIDE RECORDS SUMMARY | 2025-05-27 10:44 | XMS_ITS | Encounter Summary ---
Author Organization [facility] Address [address] [place] [address] Phone Care Team Providers Care Well Drill Operator Name Role Phone Ok Schuler Primary Care Provider [phone] Encounter Details Date Type Department Care Team (Late st Contact Info) Description 03/04/2021 Orders Only [facility] [address] [place] [address] Radha Elizondo MD Stage 3b chronic kidney [...] EDT) Vitamin D, 25-Hydroxy 28.2 (20-50) NG/ML [facility] Comment: Testing performed or reported by [facility], a Service of [facility], [address] [place] [id number] Julia Juárez MD, Communications Clerk Blood specimen (specimen) Venous blood / Unknown 02/22/2021 9:37 AM EDT 02/22/2021 9:39 AM EDT Radha Elizondo MD LAB BLOOD ORDERABLES Final Resu lt Performing Organization Address [facility] Co de Phone Number [facility] * (ABNORMAL) PTH, intact (02/22/2021 9:37 AM EDT) Pathologist [facility] PTH, Intact 109(H) (15-65) PG/ML [facility] Comment: Testing performed or reported by [facility], a Service of [facility], [address] [place] [id number] Julia Juárez MD, Communications Clerk Blood specimen (specimen) Venous blood / Unknown 02/22/2021 9:37 AM EDT 02/22/2021 9:39 AM EDT Radha Elizondo MD LAB BLOOD ORDERABLES Final Resu lt Performing Organization Address City/[facility]/ZIP Co de Phone Number [facility] * Uric acid (02/22/2021 9:37 AM EDT) Pathologist [facility] Uric Acid 5.8 (2.6-8.7) MG/DL [facility] Comment: Testing performed or reported by [facility], a Service of [address] [address] Julia Juárez MD, Communications Clerk Blood specimen (specimen) Venous blood / Unknown 02/22/2021 9:37 AM EDT 02/22/2021 9:39 AM EDT us Radha Elizondo MD LAB BLOOD ORDERABLES Final Resu lt [facility] * (ABNORMAL) Renal function panel (02/22/2021 9:37 AM EDT) Glucose 105(H) (70-99) MG/DL [facility] BUN 38(H) (6-20) MG/DL [facility] Creatinine 2.8(H) (0.7-1.2) MG/DL [facility] Sodium 143 (133-145) MMOL/L [facility] Potassium 4.1 (3.6-5.2) MMOL/L [facility] Chloride 104 (98-107) MMOL/L [facility] Bicarbonate (CO2) 28 (22-29) MMOL/L [facility] Anion Gap 11 (4-17) [facility] Albumin 4.1 (3.4-4.8) GM/DL [facility] Calcium 9.2 (8.6-10.5) MG/DL [facility] Phosphorus, Serum 2.9 (2.5-4.5) MG/DL [facility] Est GFR Non 24 ML/MIN/1.7 3 M2 [facility] Comment: Creatinine based estimated glomerular filtration rate (eGFR) is calculated using the Chronic Kidney Disease Epidemiology Collaboration (CKD-EPI). The CKD-EPI creatinine equation has not been validated in children (<18 years), women or in some racial or ethnic subgroups other than Caucasians and Americans. EST GFR 27 ML/MIN/1.7 3 M2 [facility] Comment: Creatinine based estimated glomerular filtration rate (eGFR) is calculated using the Chronic Kidney Disease Epidemiology Collaboration (CKD-EPI). The CKD-EPI creatinine equation has not been validated in children (<18 years), women or in some racial or ethnic subgroups other than Caucasians and Americans. Testing performed or reported by [facility], a Service of [facility], [address] [place] [address] Julia Juárez MD, Communications Clerk Blood specimen (specimen) Venous blood / Unknown 02/22/2021 9:37 AM EDT 02/22/2021 9:39 AM EDT us Radha Elizondo MD LAB BLOOD ORDERABLES Final Resu lt [facility] documented in this encounter Visit Diagnoses Diagnosis Stage 3b chronic kidney disease (HCC) documented in this encounter Care Teams Well Drill Operator Relationship Specialty Start Date End Date Ok Schuler [address] [place] [phone] PCP - General 09/14/20 documented as of this encounter
--- OUTSIDE RECORDS SUMMARY | 2025-05-27 10:44 | XMS_ITS | Clinical Summary ---
Author Organization [facility] Address [address] [place] [address] Phone Care Team Providers Care Lock Up Worker Name Role Phone Ok Schuler Primary Care Provider [phone] Allergies Active Allergy Reactions Criticality Noted Date [...] capsule 3 024 Active epoetin salazar (Procrit) 41314 UNIT/ML injection INJECT 40,000 UNITS (1ML) SUBCUTANEOUSLY EVERY 7 DAYS 4 mL 5 024 Active Hospital, Clinic, or Other Facility Administered Medication Ordered Dose Route Frequency Start Date End Date Status Epoetin Salazar-epbx solution 30,000 UnitsIndications:Chronic kidney disease, not otherwise specified,Anemia in chronic kidney disease 52756 Units IJ Once 08/30/2023 Active Active Problems [...] patient's age to complete this topic Insurance [facility] [place] [phone] Care Teams Lock Up Worker Relationship Specialty Start Date End Date Ok Schuler [address] [place] [phone] PCP - General 09/14/20
--- OUTSIDE RECORDS SUMMARY | 2025-05-27 10:45 | XMS_ITS | Encounter Summary ---
Author Organization [facility] Address [address] [place] [address] Phone Care Team Providers Care Key Person Name Role Phone Ok Schuler Primary Care Provider [phone] Encounter Details Date Type Department Care Team (Late st Contact Info) Description 07/14/2022 Telephone [facility] [address] [place] [phone] Kayla Mendieta Social History Tobacco Use Types [...] on filedocumented in this encounter Care Teams Key Person Relationship Specialty Start Date End Date Ok Schuler [address] [place] [id number] PCP - General 09/14/20 documented as of this encounter
--- OUTSIDE RECORDS SUMMARY | 2025-05-27 10:45 | XMS_ITS | Clinical Summary ---
Author Organization [facility] Address [address] [place] [address] Phone Care Team Providers Care Butter Melter Name Role Phone Ok Barakat MD Primary Care Provider [phone] Allergies Active Allergy Reactions Criticality Noted Date [...] sleep apnea 10/08/2017 Overview (06/10/2024): Followed at [facility], followed by Dr Musa Allen Gout 08/28/2017 Assessment & Plan (03/10/2025 10:23 AM EDT): Stable. Continue allopurinol. Assessment & Plan (10/30/2024 3:35 PM EST): Continue allopurinol 100 mg daily. CKD (chronic kidney disease), stage II 7 CVA (cerebral vascular accident) ([facility] V24, [facility] V28) 03/01/2017 Overview (06/10/2024): Neurology (06/16/17): Continue aspirin, 48 hour Holter results discussed which showed no A. fib/flutter. Advised to follow up with sleep medicine for evaluation of TONG. [facility] 01/2017 HTN (hypertension) 03/01/2017 Overview (06/10/2024): Real [...] AM EDT Office Visit [facility] Medicine - [facility] [address] [place] [address] Ok Barakat MD Hypertension, unspecified type (Primary Dx); Hyperlipidemia, unspecified hyperlipidemia type; Kidney transplant recipient; Screening for prostate cancer; Gout, unspecified cause, unspecified chronicity, unspecified site; Screening for diabetes mellitus from Last 3 Months Immunizations Name Administration Dates Next Due Influenza, Unspecified 05/22/2024 Perfect Memory SARS-CoV-2 COVID-19, mRNA, LNP-S, preservative free 06/13/2022,08/23/2021,01/17/2021,2020 [...] week fu* CVA (cerebral vascular accid ent) ([facility] V24, [facility] V28) 03/01/2017 DX:CVA (cerebral vascular a ccident) ([facility]); COMMENT: Neurology (06/16/17): Continue aspirin, 48 hour Holter results discussed which showed no A. fib/flutter. Advised to follow up with sleep medicine for evaluation of TONG. [facility] 01/2017 CKD (chronic kidney disease) , stage II 04/14/2017 DX:CKD (chronic kidney disea se), stage II Mild obstructive sleep apnea 10/08/2017 DX: Mild obstructive sleep apnea; COMMENT: Followed at [facility], followed by Dr Musa Allen Duodenal ulcer [...] - [facility] [address] [place] [address] Balbina Shelton, FEED PREPARATION OPERATOR [address] [place] [address] Health Maintenance Due Date Last Done Comments [...] mg/dL LAB CHEMISTRY METHOD 07/16/2024 3:51 PM [facility] Triglycerides 113 0 - 150 mg/dL LAB CHEMISTRY METHOD 07/16/2024 3:51 PM [facility] HDL 48 >=40 mg/dL LAB CHEMISTRY METHOD 07/16/2024 3:51 PM [facility] LDL Calculated 84 0 - 100 mg/dL LAB CHEMISTRY METHOD 07/16/2024 3:51 PM [facility] VLDL Cholesterol Jacoby 22.6 mg/dL LAB CHEMISTRY METHOD 07/16/2024 3:51 PM [facility] Non HDL Chol. (LDL+VLDL) 107 <145 mg/dL LAB CHEMISTRY METHOD 07/16/2024 3:51 PM [facility] Chol/HDL Ratio 3.2 0.0 - 4.4 LAB CHEMISTRY METHOD 07/16/2024 3:51 PM [facility] Blood Venous blood specimen / Unknown Venipuncture / Unknown 07/16/2024 9:31 AM EST 07/16/2024 9:31 AM EST us Ok Barakat MD LAB BLOOD ORDERABLES Lucía l Result [facility] [address] [place] [address], * Annual BMP Blood Test (06/05/2024) Pathologist [facility] Annual BMP Blood Test ABSTRACTED Historical Provider HEALTH MAINTENANCE Final Result * Colonoscopy (07/01/2019) [facility] Colonoscopy no interpretation , abstracted Anatomical Region Laterality Modality Other Historical Provider HEALTH MAINTENANCE Final Result * Hepatitis C Screening (05/02/2018) [facility] Hepatitis C Screening ABSTRACTED Historical Provider HEALTH MAINTENANCE Final Result from Last 3 Months or Most Recently Relevant to Health Maintenance Insurance [facility] Care Teams Butter Melter Relationship Specialty Start Date End Date Ok Barakat MD [address] [place] [id number] PCP - General Internal Medicine 02/06/17
--- OUTSIDE RECORDS SUMMARY | 2025-05-27 10:45 | XMS_ITS | Encounter Summary ---
Author Organization [facility] Address [address] [place] [address] Phone Care Team Providers Care Properties Supervisor Name Role Phone Ok Schuler Primary Care Provider [phone] Encounter Details Date Type Department Care Team (Late st Contact Info) Description 07/21/2022 Telephone [facility] [address] [place] [phone] Radha Elizondo MD Social History Tobacco Use [...] on filedocumented in this encounter Care Teams Properties Supervisor Relationship Specialty Start Date End Date Ok Schuler [address] [place] [phone] PCP - General 09/14/20 documented as of this encounter
== END 2025-05-27 09:50 | disposition home or self-care (01) ==
LOC: HO.HKAS 09:12
PROVIDERS: PCP Internal Medicine; Visit Provider Internal Medicine Nephrology
DX: Z94.0 Kidney transplant status (principal); E87.6 Hypokalemia; D72.818 Other decreased white blood cell count; I10 Essential (primary) hypertension; E55.9 Vitamin D deficiency, unspecified; N25.81 Secondary hyperparathyroidism of renal origin
CPT/HCPCS: 99214

== ENCOUNTER → 2025-05-27 09:12 | Outpatient (BNVA) | payer OTHER, SELFPAY | PROVIDERS: PCP Internal Medicine; Visit Provider Internal Medicine Nephrology | DX: I10 Essential (primary) hypertension (principal); E87.6 Hypokalemia; E55.9 Vitamin D deficiency, unspecified; N25.81 Secondary hyperparathyroidism of renal origin; D72.818 Other decreased white blood cell count; Z94.0 Kidney transplant status | CPT/HCPCS: 99212 ==

== ENCOUNTER 2025-07-30 15:23 | Outpatient (REF) | payer OTHER, SELFPAY ==
--- OUTSIDE RECORDS SUMMARY | 2025-07-30 17:45 | XMS_ITS | Encounter Summary ---
Author Organization [facility], Address [address] [place] [address] Phone Care Team Providers Care Cell Plasterer Name Role Phone Ok Schuler Primary Care Provider [phone] Encounter Details Date Type Department Care Team (Late st Contact Info) Description 12/19/2023 Documentation Only [facility], [address] [place] [phone] [place]ilar [place], [place] [address] [place] [address] Social History Tobacco Use Types [...] on filedocumented in this encounter Care Teams Cell Plasterer Relationship Specialty Start Date End Date Ok Schuler [address] [place] [address] PCP - General 09/14/20 documented as of this encounter
--- OUTSIDE RECORDS SUMMARY | 2025-07-30 17:45 | XMS_ITS | Encounter Summary ---
Author Organization [facility], Address [address] [place] [address] Phone Care Team Providers Care Product Safety Expert Name Role Phone Ok Schuler Primary Care Provider [phone] Encounter Details Date Type Department Care Team (Late st Contact Info) Description 01/12/2024 Documentation Only [facility], [address] [place] [phone] [place], [place] [address] [place] [phone] Social History Tobacco Use Types Packs/Day Years [...] on filedocumented in this encounter Care Teams Product Safety Expert Relationship Specialty Start Date End Date Ok Schuler [address] [place] [address] PCP - General 09/14/20 documented as of this encounter
--- OUTSIDE RECORDS SUMMARY | 2025-07-30 17:45 | XMS_ITS | Clinical Summary ---
Author Organization [facility] Address [address] [place] [address] Phone Care Team Providers Care Auto Care Center Manager Name Role Phone Ok Schuler Primary Care Provider [phone] Allergies Active Allergy Reactions Criticality Noted Date [...] capsule 3 024 Active epoetin salazar (Procrit) 73569 UNIT/ML injection INJECT 40,000 UNITS (1ML) SUBCUTANEOUSLY EVERY 7 DAYS 4 mL 5 024 Active Hospital, Clinic, or Other Facility Administered Medication Ordered Dose Route Frequency Start Date End Date Status Epoetin Salazar-epbx solution 30,000 UnitsIndications:Chronic kidney disease, not otherwise specified,Anemia in chronic kidney disease 85921 Units IJ Once 08/30/2023 Active Active Problems [...] disease, stage 4 (severe) 01/25/2023 04/27/2023 Weight decreased 02/28/2022 12/20/2022 Stage 3b chronic kidney disease [...] patient's age to complete this topic [place] [id number] Care Teams Auto Care Center Manager Relationship Specialty Start Date End Date Ok Schuler [address] [place] [address] PCP - General 09/14/20
--- OUTSIDE RECORDS SUMMARY | 2025-07-30 17:45 | XMS_ITS | Encounter Summary ---
Author Organization [facility] Address [address] [place] [address] Phone Care Team Providers Care Asset Coordinator Name Role Phone Ok Schuler Primary Care Provider [phone] Encounter Details Date Type Department Care Team (Late st Contact Info) Description 03/04/2021 Orders Only [facility] [address] [place] [address] Radha Elizondo MD Stage 3b chronic kidney [...] EDT) Vitamin D, 25-Hydroxy 28.2 (20-50) NG/ML [facility] Comment: Testing performed or reported by [facility], a Service of [facility], [address] [place] [address] Julia Juárez MD, Electric Motor Repairing Supervisor Blood specimen (specimen) Venous blood / Unknown 02/22/2021 9:37 AM EDT 02/22/2021 9:39 AM EDT Radha Elizondo MD LAB BLOOD ORDERABLES Final Resu lt Performing Organization Address [facility] Co de Phone Number [facility] * (ABNORMAL) PTH, intact (02/22/2021 9:37 AM EDT) Pathologist [facility] PTH, Intact 109(H) (15-65) PG/ML [facility] Comment: Testing performed or reported by [facility], a Service of [facility], [address] [place] [id number] Julia Juárez MD, Electric Motor Repairing Supervisor Blood specimen (specimen) Venous blood / Unknown 02/22/2021 9:37 AM EDT 02/22/2021 9:39 AM EDT Radha Elizondo MD LAB BLOOD ORDERABLES Final Resu lt Performing Organization Address City/[facility]/ZIP Co de Phone Number [facility] * Uric acid (02/22/2021 9:37 AM EDT) Pathologist [facility] Uric Acid 5.8 (2.6-8.7) MG/DL [facility] Comment: Testing performed or reported by [facility], a Service of [address] [address] Julia Juárez MD, Electric Motor Repairing Supervisor Blood specimen (specimen) Venous blood / Unknown 02/22/2021 9:37 AM EDT 02/22/2021 9:39 AM EDT us Radha Elizondo MD LAB BLOOD ORDERABLES Final Resu lt [facility] * (ABNORMAL) Renal function panel (02/22/2021 9:37 AM EDT) Glucose 105(H) (70-99) MG/DL [facility] BUN 38(H) (6-20) MG/DL [facility] Creatinine 2.8(H) (0.7-1.2) MG/DL [facility] Sodium 143 (133-145) MMOL/L [facility] Potassium 4.1 (3.6-5.2) MMOL/L [facility] Chloride 104 (98-107) MMOL/L [facility] Bicarbonate (CO2) 28 (22-29) MMOL/L [facility] Anion Gap 11 (4-17) [facility] Albumin 4.1 (3.4-4.8) GM/DL [facility] Calcium 9.2 (8.6-10.5) MG/DL [facility] Phosphorus, Serum 2.9 (2.5-4.5) MG/DL [facility] Est GFR Non 24 ML/MIN/1.7 3 M2 [facility] Comment: Creatinine based estimated glomerular filtration rate (eGFR) is calculated using the Chronic Kidney Disease Epidemiology Collaboration (CKD-EPI). The CKD-EPI creatinine equation has not been validated in children (<18 years), women or in some racial or ethnic subgroups other than Caucasians and Americans. EST GFR 27 ML/MIN/1.7 3 M2 [facility] Comment: Creatinine based estimated glomerular filtration rate (eGFR) is calculated using the Chronic Kidney Disease Epidemiology Collaboration (CKD-EPI). The CKD-EPI creatinine equation has not been validated in children (<18 years), women or in some racial or ethnic subgroups other than Caucasians and Americans. Testing performed or reported by [facility], a Service of [facility], [address] [place] [id number] Julia Juárez MD, Electric Motor Repairing Supervisor Blood specimen (specimen) Venous blood / Unknown 02/22/2021 9:37 AM EDT 02/22/2021 9:39 AM EDT us Radha Elizondo MD LAB BLOOD ORDERABLES Final Resu lt [facility] documented in this encounter Visit Diagnoses Diagnosis Stage 3b chronic kidney disease (HCC) documented in this encounter Care Teams Asset Coordinator Relationship Specialty Start Date End Date Ok Schuler [address] [place] [address] PCP - General 09/14/20 documented as of this encounter
--- OUTSIDE RECORDS SUMMARY | 2025-07-30 17:46 | XMS_ITS | Encounter Summary ---
Author Organization [facility] Address [address] [place] [address] Phone Care Team Providers Care Production Specialist Name Role Phone Ok Schuler Primary Care Provider [phone] Encounter Details Date Type Department Care Team (Late st Contact Info) Description 07/14/2022 Telephone [facility] [address] [place] [phone] Kayla Mendieta Social History Tobacco Use Types [...] on filedocumented in this encounter Care Teams Production Specialist Relationship Specialty Start Date End Date Ok Schuler [address] [place] [address] PCP - General 09/14/20 documented as of this encounter
--- OUTSIDE RECORDS SUMMARY | 2025-07-30 17:46 | XMS_ITS | Encounter Summary ---
Author Organization [facility], Address [address] [address] Phone Care Team Providers Care Caregiver Services Home Name Role Phone Ok Schuler Primary Care Provider [phone] Reason for Visit * Reason Comments Med Refill Encounter Details Date Type Department Care Team (Late st Contact Info) Description 02/09/2024 Refill [facility] [address] [place] [phone] Abimael Campo MD [address] [place] [phone] Social History Tobacco Use Types Packs/Day Years [...] on filedocumented in this encounter Care Teams Caregiver Services Home Relationship Specialty Start Date End Date Ok Schuler [address] [place] [phone] PCP - General 09/14/20 documented as of this encounter
--- OUTSIDE RECORDS SUMMARY | 2025-07-30 17:46 | XMS_ITS | Clinical Summary ---
Author Organization [facility] Address [address] [place] [address] Care Team Providers Care Nursing Assistant Name Role Phone Pcp, No Primary Care [...] 06/13/2022, 08/23/2021, Additional history exists RSV Vaccine 50 years and older and Patients (1 - 1-dose 75+ series) 2038 Hepatitis B Vaccines Aged Out No long er eligible based on patient's age to complete this topic Insurance [facility] [place] [employer] Care Teams Nursing Assistant Relationship Specialty Start Date End Date Pcp, No PCP - General General Medicine 08/23/24
--- OUTSIDE RECORDS SUMMARY | 2025-07-30 17:46 | XMS_ITS | Clinical Summary ---
Author Organization [address] [facility] Address [address] [place] [address] Phone Care Team Providers Care Guest Room Attendant Name Role Phone Katty Horne MD Primary Care Provider [phone] Allergies Active Allergy Reactions Criticality Noted Date [...] mouth 1 (one) time each day. Active sulfamethoxazol e-trimethoprim (BACTRIM,SEPTRA ) 400-80 mg per tablet Take 1 tablet by mouth 2 (two) times a day. Active tacrolimus (Astagraf XL) 1 mg capsule,extende d release 24hr Take by mouth. Active mycophenolate (MYFORTIC) 180 mg EC tablet Take [...] MOUTH TWICE A DAY 180 tablet 1 5 Active aspirin 81 mg EC tablet TAKE 1 TABLET BY MOUTH 1 TIME EACH DAY. 90 tablet 1 5 Active atorvastatin (LIPITOR) 10 mg tablet Take 1 tablet (10 mg total) by mouth 1 (one) time each day. 90 tablet 1 5 Active Active Problems [...] sleep apnea 10/08/2017 Overview (06/10/2024): Followed at [place] [facility] at [facility], followed by Dr Musa Horvath 08/28/2017 Assessment & Plan (03/10/2025 10:23 AM [...] with sleep medicine for evaluation of TONG. [facility] 01/2017 HTN (hypertension) 03/01/2017 Overview (06/10/2024): [...] diet. Continue regimen of carvedilol and torsemide. Immunizations Immunization Administration Dates Next Due Influenza, Unspecified 05/22/2024 [employer] SARS-CoV-2 COVID-19, mRNA, LNP-S, preservative free 06/13/2022,08/23/2021,01/17/2021,2020 [...] fu* CVA (cerebral vascular accid ent) ([facility] V24, [facility] V28) 03/01/2017 DX:CVA (cerebral vascular a ccident) ([facility]); COMMENT: Neurology (06/16/17): Continue aspirin, 48 hour Holter results discussed which showed no A. fib/flutter. Advised to follow up with sleep medicine for evaluation of TONG. [facility] 01/2017 CKD (chronic kidney disease) , stage II 04/14/2017 DX:CKD (chronic kidney disea se), stage II Mild obstructive sleep apnea 10/08/2017 DX: Mild obstructive sleep apnea; COMMENT: Followed at [place] [facility] at [facility], followed by Dr Musa Allen Duodenal [...] Date Recorded What is your living situation? Unrecognized valu e 10/29/2024 Sex and Gender Information Value Date [...] AM EST Office Visit Internal Medicine - [address] [phone] Balbina Shelton, ALLEGRA [address] [place] [address] Health Maintenance Due Date Last Done Comments Pneumococcal Vaccine: 50+ Years (1 of 2 - PCV) 1982 Zoster Vaccines (1 of 2) 1982 RSV Immunization Adult Patients (1 - Risk 50-74 years 1-dose series) 2013 HIV Screening 08/13/2022 COVID-19 Vaccine ( season) 2025 05/22/2024, 07/30/2023, 06/13/2022, Additional history [...] to direct LDL (07/16/2024 9:31 AM EST) [facility] Cholesterol 155 0 - 200 mg/dL LAB CHEMISTRY METHOD 07/16/2024 3:[address] [facility] Triglycerides 113 0 - 150 mg/dL LAB CHEMISTRY METHOD 07/16/2024 3:[address] [facility] HDL 48 >=40 mg/dL LAB CHEMISTRY METHOD 07/16/2024 3:[address] [facility] LDL Calculated 84 0 - 100 mg/dL LAB CHEMISTRY METHOD 07/16/2024 3:[address] [facility] VLDL Cholesterol Jacoby 22.6 mg/dL LAB CHEMISTRY METHOD 07/16/2024 3:[address] [facility] Non HDL Chol. (LDL+VLDL) 107 <145 mg/dL LAB CHEMISTRY METHOD 07/16/2024 3:[address] [facility] Chol/HDL Ratio 3.2 0.0 - 4.4 LAB CHEMISTRY METHOD 07/16/2024 3:[address] [facility] Blood Venous blood specimen / Unknown Venipuncture / Unknown 07/16/2024 9:31 AM EST 07/16/2024 9:31 AM EST Ok Barakat MD LAB BLOOD ORDERABLES Lucía l Result [facility] [address] [place] [address], [place] [phone] * Annual BMP Blood Test (06/05/2024) [facility] Annual BMP Blood Test ABSTRACTED Historical Provider HEALTH MAINTENANCE Final Result * Colonoscopy (07/01/2019) [facility] Colonoscopy no interpretation , abstracted Anatomical Region Laterality Modality Other Historical Provider HEALTH MAINTENANCE Final Result * Hepatitis C Screening (05/02/2018) Hepatitis C Screening ABSTRACTED Historical Provider HEALTH MAINTENANCE Final Result from Last 3 Months or Most Recently Relevant to Health Maintenance Insurance [facility] Care Teams Guest Room Attendant Relationship Specialty Start Date End Date Katty Horne MD [address] [place] [address] PCP - General Internal Medicine 06/09/25
--- OUTSIDE RECORDS SUMMARY | 2025-07-30 17:46 | XMS_ITS | Encounter Summary ---
Author Organization [facility] Address [address] [place] [address] Phone Care Team Providers Care Socket Puller Name Role Phone Ok Schuler Primary Care Provider [phone] Encounter Details Date Type Department Care Team (Late st Contact Info) Description 07/21/2022 Telephone [facility] [address] [place] [phone] Radha Elizondo MD Social History Tobacco Use [...] on filedocumented in this encounter Care Teams Socket Puller Relationship Specialty Start Date End Date Ok Schuler [address] [place] [address] PCP - General 09/14/20 documented as of this encounter
[2025-07-30 18:00] LABS: MANUAL DIFF FLAG NO
[2025-07-30 18:04] LABS: Hematocrit 36.7 % (42.0-52.0); Hemoglobin 11.9 g/dl (14.0-18.0); Imm Gran Abs Auto 0.02 X10*3/uL (0.00-0.03); Imm Gran Pct Auto 0.5 % (0.0-0.4); Lymphocytes Absolute Auto 0.9 X10*3/uL (1.2-4.9); Mean Corpuscular HGB Conc 32.4 g/dl (31.0-36.0); Mean Corpuscular Hemoglobin 27.2 pg (27.0-33.0); Mean Corpuscular Volume 84.0 fL (80.0-98.0); NRBC Abs Auto 0.000 X10*3/uL (0.0-0.012); NRBC Pct Auto 0.0 /100WBC (0.0-0.2); Platelet Count 168 X10*3/uL (160-400); Red Blood Count 4.37 X10*6/uL (4.60-5.80); White Blood Count 3.9 X10*3/uL (4.8-10.8)
[2025-07-30 18:44] LABS: Alanine Aminotransferase 20 U/L (0-40); Anion Gap 14 (12-20); Aspartate Amino Transferase 21 U/L (5-37); Blood Urea Nitrogen 22 mg/dL (9-16); Calcium 9.2 mg/dL (8.4-10.2); Carbon Dioxide 30 mmol/L (22-29); Chloride 104 mmol/L (96-108); Estimated Glomerular Filt Rate 41; Magnesium 2.0 mg/dL (1.6-2.6); Potassium 3.6 mmol/L (3.3-5.1); Sodium 144 mmol/L (135-145)
== END 2025-07-30 15:24 | disposition home or self-care (01) ==
LOC: HO.HKASLDS 15:23
PROVIDERS: PCP Internal Medicine; Visit Provider Internal Medicine Nephrology
DX: I10 Essential (primary) hypertension (principal); N25.81 Secondary hyperparathyroidism of renal origin; E87.6 Hypokalemia; E55.9 Vitamin D deficiency, unspecified; D72.818 Other decreased white blood cell count; Z94.0 Kidney transplant status
CPT/HCPCS: 36415; 80051; 82310; 82565; 83735; 84100; 84450; 84460; 84520; 85025

== ENCOUNTER 2025-08-07 15:46 | Outpatient (REF) | payer OTHER, SELFPAY ==
[2025-08-07 17:53] LABS: Appearance Urine Clear; Glucose Urine UA Negative (Negative); PH 6.0 (5.0-9.0); Specific Gravity - Urine 1.010 (1.005-1.025)
[2025-08-07 18:43] LABS: Total Protein Urine Random < 7 mg/dL (<12)
--- OUTSIDE RECORDS SUMMARY | 2025-08-07 21:55 | XMS_ITS | Clinical Summary ---
Author Organization [facility] Address [address] [place] [address] Care Team Providers Care Event Marketing Manager Name Role Phone Pcp, No Primary Care [...] patient's age to complete this topic Insurance [facility] [facility] [employer] Care Teams Event Marketing Manager Relationship Specialty Start Date End Date Pcp, No PCP - General General Medicine 08/23/24
--- OUTSIDE RECORDS SUMMARY | 2025-08-07 21:55 | XMS_ITS | Clinical Summary ---
Author Organization [facility] Address [address] [place] [address] Phone Care Team Providers Care Rotating Field Assembler Name Role Phone Katty Horne MD Primary Care Provider [phone] Allergies Active Allergy Reactions Criticality Noted Date [...] sleep apnea 10/08/2017 Overview (06/10/2024): Followed at [place] [facility] at [facility], followed by Dr Musa Horvath 08/28/2017 [...] with sleep medicine for evaluation of TONG. [facility] 01/2017 HTN (hypertension) 03/01/2017 Overview (06/10/2024): [...] Encounters Date Type Department Care Team Description 08/01/2025 Results Follow-Up Internal Medicine - [facility] [address] [place] [address] Carolyn Gutierrez MA from Last 3 Months Immunizations Immunization Administration Dates Next Due Influenza, [...] week fu* CVA (cerebral vascular accid ent) ([facility] V24, [facility]/H[facility] V28) 03/01/2017 DX:CVA (cerebral vascular a ccident) ([facility]); COMMENT: Neurology (06/16/17): Continue aspirin, 48 hour Holter results discussed which showed no A. fib/flutter. Advised to follow up with sleep medicine for evaluation of TONG. [facility] 01/2017 CKD (chronic kidney disease) , stage II 04/14/2017 DX:CKD (chronic kidney disea se), stage II Mild obstructive sleep apnea 10/08/2017 DX: Mild obstructive sleep apnea; COMMENT: Followed at [place] [facility] at [facility], followed by Dr Musa Allen Duodenal [...] AM EST Office Visit Internal Medicine - [address] [phone] Balbina Shelton NP [address] [place] [address] Health Maintenance Due Date Last Done Comments [...] Procedure Name Priority Date/Time Associated Diagnosis Comments EXTERNAL CLINICAL LAB 07/31/2025 LIPID PANEL WITH REFLEX TO DIRECT LDL Routine 07/16/2024 9:31 AM EST Hyperlipemia ANNUAL BMP BLOOD TEST Routine 06/05/2024 COLONOSCOPY Routine 07/01/2019 HEPATITIS C SCREENING Routine 05/02/2018 from Last 3 Months or Most Recently Relevant to Health Maintenance Results * External clinical lab (07/31/2025) Provider [facility] LAB BLOOD ORDERABLES Fin al Result * Lipid panel with reflex to direct [...] 4.4 LAB CHEMISTRY METHOD 07/16/2024 3:51 PM [facility] Blood Venous blood specimen / Unknown Venipuncture / Unknown 07/16/2024 9:31 AM EST 07/16/2024 9:31 AM EST Ok Barakat MD LAB BLOOD ORDERABLES Lucía john Result [facility] [address] [place] [address], * Annual BMP Blood Test (06/05/2024) Annual BMP Blood Test ABSTRACTED Historical Provider HEALTH MAINTENANCE Final Result * Colonoscopy (07/01/2019) Colonoscopy no interpretation , abstracted Anatomical Region Laterality Modality Other Historical Provider HEALTH MAINTENANCE Final Result * Hepatitis C Screening (05/02/2018) Pathologist [facility] Hepatitis C Screening ABSTRACTED [facility] Provider HEALTH MAINTENANCE Final Result from Last 3 Months or Most Recently Relevant to Health Maintenance Insurance [facility] [employer] Care Teams Rotating Field Assembler Relationship Specialty Start Date End Date Katty Horne MD [address] [place] [address] PCP - General Internal Medicine 06/09/25
--- OUTSIDE RECORDS SUMMARY | 2025-08-07 21:55 | XMS_ITS | Encounter Summary ---
Author Organization [facility] Address [address] [place] [address] Care Team Providers Care Jail Manager Name Role Phone Katty Horne MD Primary Care Provider [phone] Encounter Details Date Type Department Care Team (Late st Contact Info) Description 08/01/2025 Results Follow-Up Internal Medicine - [facility] [address] [place] [phone] Carolyn Gutierrez MA Social History Tobacco Use Types Packs/Day Years [...] on file documented as of this encounter Progress Notes * Katty Horne MD - 08/03/2025 10:56 PM EST Patient unknown to me Reviewed labs stable Follows renal transplant * Katty Horne MD - 08/03/2025 10:56 PM EST ----- Message from Carolyn Lucia MA sent at 08/01/2025 11:42 AM EST ----- Ok to wait. ----- Message ----- From: Interface, Incoming Scanned Document Link - Larry Sent: 08/01/2025 9:57 AM EST To: Katty Horne MD documented in this encounter Plan of Treatment Upcoming Encounters Date Type Department Care Team (Late st Contact Info) Description 09/10/2025 8:30 AM EST Office Visit Internal Medicine - [address] [phone] Balbina Shelton NP [address] [place] [address] documented as of this encounter Visit Diagnoses Not on filedocumented in this encounter Additional Health Concerns Assessment Noted Time PHQ-9 Depression Total Score: 0 10/29/19 6:18 PM EST documented as of this encounter Care Teams Jail Manager Relationship Specialty Start Date End Date Katty Horne MD [address] [place] [address] PCP - General Internal Medicine 06/09/25 documented as of this encounter
== END 2025-08-07 15:47 | disposition home or self-care (01) ==
LOC: HO.HKASLDS 15:46
PROVIDERS: Visit Provider Internal Medicine Nephrology
DX: N25.81 Secondary hyperparathyroidism of renal origin (principal); E55.9 Vitamin D deficiency, unspecified; I10 Essential (primary) hypertension; D72.818 Other decreased white blood cell count; E87.6 Hypokalemia; Z94.0 Kidney transplant status
CPT/HCPCS: 81003; 82570; 84156

== ENCOUNTER 2025-08-12 10:43 | Outpatient (AMB) | payer OTHER, SELFPAY ==
--- NOTE | 2025-08-12 11:14 | HO.NEPHOV ---
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 He was not on dialysis. Induction was done using IV methylprednisone and Thymoglobulin. Donor was CMV positive, EBV positive with a KDPI 82%. Patient was CMV positive, EBV positive with 0% PRA. He had 2 hour session of hemodialysis for hyperkalemia postoperatively. He had multiple admissions for GI bleed and anemia, gastric ulcers with no evidence of active bleeding. He had delayed graft function. He has been followed up by Urology. He underwent biopsy on 01/12/2024 which showed mild tubulitis T1 with minimal interstitial inflammation less than 10% , global sclerosis of 1/20 normal I the the mild to moderate diffuse interstitial fibrosis involving 20-30% of cortical area. His BK virus PCR has been negative. His DSA was negative. His Doppler showed no renal artery stenosis. He denies any chest pain, shortness of breath, proximal nocturnal dyspnea, orthopnea, pedal edema, urinary symptoms, fever. He is compliant with his medications. He maintains good hydration. His urine output is good. He avoids [id number]-[id number] medications. [facility] Medical History ESRD (end stage renal disease) CVA (cerebral vascular accident) TONG (obstructive sleep apnea) Gout Hypertension Surgical History Kidney replaced by transplant Social History Alcohol intake: never Patient Tobacco Use Status: Never used Tobacco Review of Systems Const All systems reviewed & are unremarkable except as noted in HPI and below Physical Exam Vital Signs: Last Vital Signs Pulse 50 08/12/25 11:15 BP 140/80 H 08/12/25 11:15 Pulse Ox 97 08/12/25 11:15 Oxygen Delivery Method Room Air 08/12/25 11:15 BMI result Body Mass Index 34.3 Const General: comfortable and no acute distress Orientation/consciousness: patient oriented x3 HEENT Head: Yes normocephalic Mouth: Normal oral and palatal mucosa present Eyes EOM: EOMs intact bilaterally Neck Neck: Yes supple Resp Auscultation: clear to auscultation bilaterally Cardio Jugular venous distension: no JVD Rate: regular rate GI Palpation (GI): Soft to palpation Auscultation: normal bowel sounds General: Yes no CVA tenderness Back/Spine/Pelvis Back: no CVA tenderness Skin General skin exam: no rashes or lesions noted Neuro General: patient oriented x3 and moves all extremities Extrem General: Yes no pedal edema Results Reviewed Nephrology Results: Hgb, (14.0-18.0) 11.9 g/dl L 07/30/25 WBC, (4.8-10.8) 3.9 X10*3/uL L 07/30/25 Plt Count, (160-400) 168 X10*3/uL Δ 07/30/25 Sodium, (135-145) 144 mmol/L 07/30/25 Potassium, (3.3-5.1) 3.6 mmol/L 07/30/25 Chloride, (96-108) 104 mmol/L 07/30/25 Carbon Dioxide, (22-29) 30 mmol/L H 07/30/25 BUN, (9-16) 22 mg/dL H 07/30/25 Creatinine, (0.5-1.4) 1.71 mg/dL H 07/30/25 Calcium, (8.4-10.2) 9.2 mg/dL Δ 07/30/25 Phosphorus, (2.7-4.5) 3.0 mg/dL 07/30/25 PTH Intact, (8.7-77.1) 342.7 pg/mL H 03/18/25 Urine Protein, (Neg-Trace) Negative mg/dL 08/07/25 Urine Creatinine 86.98 mg/dL 08/07/25 Protein/Creatinin Ratio TNP 08/07/25 Assessment & Plan Assessment & Plan (1) Hypertension: Code(s): I10 - Essential (primary) hypertension Category: Medical Qualifiers: Hypertension type: primary hypertension Qualified Code(s): I10 - Essential (primary) hypertension (2) Secondary hyperparathyroidism (of renal origin): Code(s): N25.81 - Secondary hyperparathyroidism of renal origin Category: Medical (3) Vitamin D deficiency: Code(s): E55.9 - Vitamin D deficiency, unspecified Category: Medical (4) Renal transplant recipient: Code(s): Z94.0 - Kidney transplant status Category: Surgical (5) Hypokalemia: Code(s): E87.6 - Hypokalemia Category: Medical Plan Davion had a preemptive donor renal transplant November 2023. He has H/O delayed graft function. He needed 1 hemodialysis treatment postoperatively. His DSA was negative. His urinalysis was bland. His serum creatinine has been stable. His urine protein creatinine ratio was normal. His Prospera was down to 0.13 on 04 of February. His transplant ultrasound in December showed mild hydronephrosis post stent removal. Allograft biopsy was done on 01/12/2024 which did not show any rejection. 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 ( last dose of Belatecept was 08/03/2025) . He had finished a Mycelex , Bactrim and Valcyte. His BK virus PCR has been negative. His EBV and CMV status for donor and recipient were positive. He is on Coreg which has been keeping his blood pressure at goal at home. His calcium, phosphorus and magnesium has been at goal. He is not on any oral sodium bicarbonate. He had a bone marrow biopsy & was WNL as per patient. He is on myfortic to 360 mg bid . He should put sun screen. I did not make any other medication changes today. He may need activated Vitamin D soon. Needs to lose weight. Follow-up lab work ordered. Follow-up appointment given Orders: Orders Parathyroid Hormone Intact 2 Months E55.9 - Vitamin D deficiency, unspecified, I10 - Essential (primary) hypertension, N25.81 - Secondary hyperparathyroidism of renal origin, Z94.0 - Kidney transplant status Phosphorus 2 Months E55.9 - Vitamin D deficiency, unspecified, I10 - Essential (primary) hypertension, N25.81 - Secondary hyperparathyroidism of renal origin, Z94.0 - Kidney transplant status Magnesium 2 Months E55.9 - Vitamin D deficiency, unspecified, I10 - Essential (primary) hypertension, N25.81 - Secondary hyperparathyroidism of renal origin, Z94.0 - Kidney transplant status Calcium 2 Months E55.9 - Vitamin D deficiency, unspecified, I10 - Essential (primary) hypertension, N25.81 - Secondary hyperparathyroidism of renal origin, Z94.0 - Kidney transplant status Blood Urea Nitrogen 2 Months E55.9 - Vitamin D deficiency, unspecified, I10 - Essential (primary) hypertension, N25.81 - Secondary hyperparathyroidism of renal origin, Z94.0 - Kidney transplant status Complete Blood Count Auto Diff 2 Months E55.9 - Vitamin D deficiency, unspecified, I10 - Essential (primary) hypertension, N25.81 - Secondary hyperparathyroidism of renal origin, Z94.0 - Kidney transplant status Vitamin D 25-OH Total 2 Months E55.9 - Vitamin D deficiency, unspecified, I10 - Essential (primary) hypertension, N25.81 - Secondary hyperparathyroidism of renal origin, Z94.0 - Kidney transplant status Electrolytes 2 Months E55.9 - Vitamin D deficiency, unspecified, I10 - Essential (primary) hypertension, N25.81 - Secondary hyperparathyroidism of renal origin, Z94.0 - Kidney transplant status Creatinine 2 Months E55.9 - Vitamin D deficiency, unspecified, I10 - Essential (primary) hypertension, N25.81 - Secondary hyperparathyroidism of renal origin, Z94.0 - Kidney transplant status Other Ref Test - Misc 2 Months E55.9 - Vitamin D deficiency, unspecified, I10 - Essential (primary) hypertension, N25.81 - Secondary hyperparathyroidism of renal origin, Z94.0 - Kidney transplant status Coding Level of Care Code Est Pt Level 4 (16059) Diagnoses Primary hypertension I10 Hypertension type: primary hypertension Secondary hyperparathyroidism (of renal origin) N25.81 Vitamin D deficiency E55.9 Renal transplant recipient Z94.0 Hypokalemia E87.6
[2025-08-12 11:15] VITALS: BP 140/80; PULSE 50; O2SAT 97; BMI 34.3
== END 2025-08-12 11:38 | disposition home or self-care (01) ==
LOC: HO.HKAS 10:43
PROVIDERS: PCP Internal Medicine; Visit Provider Internal Medicine Nephrology
DX: I10 Essential (primary) hypertension (principal); N25.81 Secondary hyperparathyroidism of renal origin; E55.9 Vitamin D deficiency, unspecified; Z94.0 Kidney transplant status; E87.6 Hypokalemia
CPT/HCPCS: 99214

== ENCOUNTER → 2025-08-12 10:43 | Outpatient (BNVA) | payer OTHER, SELFPAY | PROVIDERS: PCP Internal Medicine; Visit Provider Internal Medicine Nephrology | DX: I10 Essential (primary) hypertension (principal); N25.81 Secondary hyperparathyroidism of renal origin; E55.9 Vitamin D deficiency, unspecified; Z94.0 Kidney transplant status; E87.6 Hypokalemia; Z79.899 Other long term (current) drug therapy; Z79.624 Long term (current) use of inhibitors of nucleotide synthesis | CPT/HCPCS: 99212 ==